=== PATIENT | female | born 1955 | race Caucasian/White ===

== ENCOUNTER 2020-02-12 12:12 | Outpatient (CLI) | payer MEDICARE, MEDICAID, SELFPAY ==
--- NOTE | 2020-02-12 12:49 | MM_ITS ---
WS: [id number] BILATERAL SCREENING DIGITAL MAMMOGRAM WITH CAD HISTORY: SCREENING MAMMOGRAM COMPARISON: 11/24/2011 Bilateral CC and MLO views submitted. Computer aided detection analyzed. Breast composition: There are scattered areas of fibroglandular density. No suspicious masses, microc alcifications or architectural distortion. Benign calcifications RIGHT breast. MM/[place] [id number] IMPRESSION: BI-RADS: 2-Benign FOLLOW UP: 1 Year Follow-up
== END 2020-02-12 12:13 | disposition home or self-care (01) ==
PROVIDERS: PCP Family Medicine; Visit Provider Family Medicine
DX: Z12.31 Encounter for screening mammogram for malignant neoplasm of breast (principal)
CPT/HCPCS: 77067

== ENCOUNTER 2020-11-06 11:43 | Outpatient (CLI) | payer MEDICARE, MEDICAID, SELFPAY ==
--- NOTE | 2020-11-06 11:51 | US_ITS ---
WS: [id number] INDICATION: Lymphadenopathy TECHNIQUE: Ultrasound right axilla area of concern. FINDINGS: Ultrasound right axilla. No cystic or solid lesions. No lymphadenopathy. No drainable fluid collections. No suspicious findings. US/US soft tissue/extremity 88304 IMPRESSION: Normal axillary ultrasound.
--- NOTE | 2020-11-06 11:51 | USCV_ITS ---
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
== END 2020-11-06 11:44 | disposition home or self-care (01) ==
LOC: RAD 11:48
PROVIDERS: PCP Family Medicine; Visit Provider Family Medicine
DX: R73.9 Hyperglycemia, unspecified (principal); I73.9 Peripheral vascular disease, unspecified; E03.9 Hypothyroidism, unspecified; G62.9 Polyneuropathy, unspecified
CPT/HCPCS: 76882; 93922

== ENCOUNTER 2020-12-17 11:40 | Outpatient (CLI) | payer MEDICARE, MEDICAID, SELFPAY ==
--- NOTE | 2020-12-17 11:57 | XR_ITS ---
WS: [id number] Right knee, 3 views, 12/17/2020 Clinical Data: HIP PAIN Comparison: None. Findings: No fractures or dislocations are seen. The medial joint compartment is narrow.The patella is unremark able. The soft tissues are unremarkable. XR/XR knee RT 3V* [id number] Impression: Minimal osteoarthritis with medial joint compartment narrowing of the right bhaveshe mini
--- NOTE | 2020-12-17 11:57 | XR_ITS ---
WS: [id number] Left knee, 3 views, 12/17/2020 Clinical Data: HIP PAIN Comparison: None. Findings: No fractures or dislocations are seen. There is medial joint compartment narrowing.. The patella is i ntact. The soft tissues are unremarkable. XR/XR knee LT 3V* [id number] Impression: Minimal medial joint compartment narrowing of the left knee.
--- NOTE | 2020-12-17 11:57 | XR_ITS ---
WS: [id number] Right hip, AP and frog-leg views, 12/17/2020 Clinical Data: HIP PAIN Comparison: None. Findings: No fractures or dislocations are seen. The hip joint is intact. The soft tissues are not remarkable. The adjacent pelvis is normal. XR/XR hip RT 2-3V wo/w pel* [id number] Impression: Negative right hip.
--- NOTE | 2020-12-17 11:57 | XR_ITS ---
WS: [id number] Lumbar spine, AP and lateral views, 12/17/2020 Clinical Data: HIP PAIN Comparison: None. Findings: No compression fractures or subluxation is seen. There is disc space narrowing at L2-L3 and L5-S1. Th ere is anterior osteoarthritic change of all the lumbar vertebral bodies. There is a gentle dextrosco liosis.. The transverse processes and SI joints are normal. There is a large amount of fecal material throughout the colon. There are calcifications in the wall of the abdominal aorta but no aneurysm. XR/XR lumbar spine 2-3V* [id number] Impression: 1. Multilevel degenerative disc narrowing. 2. Osteoarthritis of all the lumbar vertebral bodies.
--- NOTE | 2020-12-17 11:57 | XR_ITS ---
WS: [id number] Left hip, AP and frog-leg views, 12/17/2020 Clinical Data: HIP PAIN Comparison: None. Findings: No fractures or dislocations are seen. The hip joint is intact. The soft tissues are not remarkable. The adjacent pelvis is normal. XR/XR hip LT 2-3V wo/w pel* [id number] Impression: Negative left hip.
== END 2020-12-17 11:41 | disposition home or self-care (01) ==
PROVIDERS: PCP Family Medicine; Visit Provider Family Medicine
DX: M25.551 Pain in right hip (principal); M25.552 Pain in left hip; M47.816 Spondylosis without myelopathy or radiculopathy, lumbar region
CPT/HCPCS: 72100; 73502; 73562

== ENCOUNTER 2021-02-12 07:09 | Outpatient (CLI) | payer MEDICARE, MEDICAID, SELFPAY ==
--- NOTE | 2021-02-12 07:18 | MM_ITS ---
WS: [id number] BILATERAL DIGITAL SCREENING MAMMOGRAPHY WITH CAD CLINICAL INFORMATION: SCREENING HISTORY: Screening mammogram. No current complaints. COMPARISON: February 12, 2020 TECHNIQUE: Bilateral CC and MLO views. FINDINGS: Mild inversion left nipple Scattered fibroglandular densities bilaterally. No suspicious focal mass, asymmetry, calcifications, or architectural distortion. No evidence of malignancy. Punctate and lucent centered calcifications. MM/[place] [id number] IMPRESSION: BI-RADS: 2-Benign FOLLOW UP: 1 Year Follow-up Recommend return to annual screening mammography.
== END 2021-02-12 07:10 | disposition home or self-care (01) ==
LOC: RADSHAW 07:13
PROVIDERS: PCP Family Medicine; Visit Provider Family Medicine
DX: Z12.31 Encounter for screening mammogram for malignant neoplasm of breast (principal)
CPT/HCPCS: 77067

== ENCOUNTER 2021-02-25 10:37 | Emergency (ER) | payer MEDICARE, MEDICAID, SELFPAY ==
[2021-02-25] VITALS (11 sets, daily range): BP systolic 103–139; BP diastolic 48–72; PULSE 96–107; RESP 17–27; O2SAT 86–97; BMI 33.4
--- NOTE | 2021-02-25 11:11 | XR_ITS ---
WS: [id number] Portable AP upright chest, 02/25/2021 Clinical Data: AMS, cough Comparison: PA and lateral chest, 04/04/2013. Findings: No nodules, masses or effusions are seen. The heart is normal. The pulmonary vascularity is not increased. No pneumonia or pneumothorax is seen. There is a small recording device over the mid chest. XR/XR chest 1V portable [id number] Impression: Negative chest.
--- NOTE | 2021-02-25 11:11 | CT_ITS ---
WS: [id number] CT HEAD TECHNIQUE: Noncontrast CT of the head obtained from the skullbase to the vertex. CLINICAL INFORMATION: fall, AMS COMPARISON: None. DLP: 858.[address] scans at [facility] use at least one of these dose optimization techniques: automat ed exposure control; mA and/or kV adjustment per patient size (includes targeted exams where dose is matched to clinical indication); or iterative reconstruction. FINDINGS: No evidence of intracranial hemorrhage or mass effect. Ventricular system and basal cisterns are pretty nt. Mild small vessel changes with mild parenchymal volume loss. Chronic lacunar infarct left lateral basal ganglia. No extra-axial fluid collections. No evidence of mass or mass effect. Normal johnson-whi te differentiation. Mild mucosal thickening in the posterior ethmoid air cells and sphenoid sinuses. Mastoid air cells we ll aerated. CT/CT head wo con* [id number] IMPRESSION: 1. No evidence of intracranial hemorrhage or mass effect. 2. Mild small vessel changes. Mild parenchymal volume loss. 3. Mild mucosal thickening in the paranasal sinuses. 4. No acute intracranial findings.
[2021-02-25 11:21] LABS: Basophils % 0.5 %; Eosinophils % 0.1 %; Hematocrit 39.6 % (37.0-47.0); Hemoglobin 12.6 g/dL (11.5-15.3); Lymphocytes % 35.4 %; Mean Corpuscular HGB Conc 31.8 g/dL (30.0-36.0); Mean Corpuscular Hemoglobin 29.7 pg (28.0-34.0); Mean Corpuscular Volume 93.4 fL (81-99); Mean Platelet Volume 11.9 fL (7.4-10.4); Monocytes % 12.1 %; Neutrophils # 4.33 10^3/uL (1.8-7.7); Neutrophils % 51.5 %; Nucleated Red Blood Cells % 0 %; Platelet Count 243 10^3/cmm (130-400); Red Blood Count 4.24 10^6/uL (4.1-5.3); Red Cell Distribution Width 14.6 % (12.1-15.1); White Blood Count 8.4 10^3/uL (4.0-10.0)
--- NOTE | 2021-02-25 11:38 | ED_ITS ---
HPI - Altered Mental Status General: Chief Complaint: Altered Mental Status Stated Complaint: confusion/ fever/ persistent cough Time Seen by Provider: 02/25/21 11:01 Source: patient and RN notes reviewed Mode of arrival: EMS Limitations: altered mental status History of Present Illness: HPI narrative: Patient is a 65-year-old female who was brought into the emergency department by EMS because her daughter and hospice/home health aide felt the patient was not acting like herself. As the patient is giving me history it is obvious that some parts of her history are not connecting and it is difficult to make complete sense. She however is able to tell me her aide told her she was coming to the hospital and she says she does not know why. Patient does admit to having a fall 2 days ago and has an abrasion to her nose. Patient cannot recall how or why she fell. She does endorse a cough but denies a fever. On arrival to her place of residence her oxygen saturation was about 88 to 89% on room air and she was placed on 6 L/min of oxygen. She was also given a beta agonist breathing treatment en route. MD complaint: altered mental status and confusion Onset (ago): hour(s) Timing confirmed by: family member Severity: moderate Consistency of symptoms: Unknown Associated symptoms: Deny auditory hallucinations, visual hallucinations, delusions, depression, homicidal ideation, racing thoughts or suicidal ideation Review of Systems General: Reports: 10 or more systems reviewed and unremarkable except in HPI and below Psych: Denies: depression, visual hallucinations, auditory hallucinations, suicidal ideation or homicidal ideation [facility] ED PFSH: Social History Smoking and tobacco status: current every day smoker Alcohol intake: never Physical Exam Const: COMMON NORMALS: no acute distress, average body habitus, patient oriented x3, no limitations, healthy appearing, alert and well nourished HENMT: COMMON NORMALS: normocephalic, atraumatic and moist oral mucous membranes HEAD & SCALP: normocephalic, atraumatic and abrasion (To the bridge of her nose) Neck/C-Spine: COMMON NORMALS: no meningeal signs and no JVD Resp: COMMON NORMALS: normal respiratory effort, No retractions, No use of accessory muscles, clear to auscultation bilaterally and percussion normal AUSCULTATION: clear to auscultation bilaterally PERCUSSION: percussion normal Cardio: COMMON NORMALS: no JVD, regular rate, regular rhythm, S1 normal heart sound present, S2 normal heart sound present, No gallops present (Cardio), No clicks present (Cardio), No murmurs present (Cardio), No rub (Cardio) and Peripheral pulses 2+ throughout RATE: regular rate RHYTHM: regular rhythm HEART SOUNDS: S1 normal heart sound present and S2 normal heart sound present PERIPHERAL PULSES: Peripheral pulses 2+ throughout GI: COMMON NORMALS: Normal to inspection, nondistended, normoactive bowel sounds present, Soft to palpation, non-tender, No hepatosplenomegaly present, no masses and no bruits PALPATION: Yes Soft to palpation and Yes No hepatosplenomegaly present Extremity: COMMON NORMALS: normal to inspection, full ROM, capillary refill normal, no calf tenderness and no pedal edema Neuro: COMMON NORMALS: patient oriented x3 SENSORIUM/ORIENTATION: Yes alert MENINGEAL SIGNS: Yes no meningeal signs OTHER: She is able to answer all my questions regarding orientation appropriately but there appeared to be some gaps in her history that she is unable to fill Psych: THOUGHT CONTENT: No delusions Skin: COMMON NORMALS: no rashes or lesions noted, no wounds, turgor normal, no jaundice, no petechiae and no mottling GENERAL SKIN EXAM: no rashes or lesions noted and turgor normal Course Reevaluation(s): Reevaluation #1: Discussed her lab and imaging findings with the patient and her daughter. Explained that her work-up was essentially unremarkable other than she is noted to be hypoxic. She qualified for home oxygen and she is discharged home on home oxygen. Patient and her daughter voiced understanding and they are in agreement with the plan. Time: 17:25 Vital Signs: Vital signs: Vital Signs Pulse Rate 98 02/25/21 17:49 Respiratory Rate 22 H 02/25/21 17:03 Blood Pressure 105/48 02/25/21 13:00 Pulse Oximetry 92 02/25/21 17:49 MDM - Altered Mental Status MDM Narrative: Medical decision making narrative: 65-year-old female patient presents to the emergency department with altered mental status. Evaluation in the emergency department is unremarkable other than she was pretty hypoxic on ambulation. Work-up done including a CTA of her chest were negative. Her mental status improved with oxygen and she is discharged home with home oxygen. Medical Records: Attestation: I reviewed the patient's medical records. Lab Data: Attestation: I reviewed the patient's lab results. Labs: Lab Results 02/25/21 02/25/21 02/25/21 Range/Units 10:29 10:29 10:29 WBC 8.4 (4.0-10.0) 10^3/ uL RBC 4.24 (4.1-5.3) 10^6/u L Hgb 12.6 (11.5-15.3) g/dL Hct 39.6 (37.0-47.0) % MCV 93.4 (81-99) fL MCH 29.7 (28.0-34.0) pg MCHC 31.8 (30.0-36.0) g/dL RDW 14.6 (12.1-15.1) % Plt Count 243 (130-400) 10^3/c mm MPV 11.9 H (7.4-10.4) fL Neut % (Auto) 51.5 % Lymph % (Auto) 35.4 % [place] % (Auto) 12.1 % Eos % (Auto) 0.1 % Baso % (Auto) 0.5 % Neut # (Auto) 4.33 (1.8-7.7) 10^3/u L Lymph # (Auto) 3.0 (0.8-4.8) 10^3/u L [place] # (Auto) 1.0 H (0.2-0.9) 10^3/u L Eos # (Auto) 0.0 (0.0-0.8) 10^3/u L Baso # (Auto) 0.0 (0.0-0.1) 10^3/u L Nucleated RBC % (a uto) 0 % Nucleated RBCs # 0.0 /100WBC Specimen Type Sample Site ABG pH (7.35-7.45) ABG pCO2 (35-45) mmHg ABG pO2 (80.0-100.0) mmH g ABG HCO3 (22-26) mmol/L ABG Base Excess (-2.0-2.0) mmol/ L Abhi Test Hematocrit (37-47) % O2 Delivery Device O2 Liters/Min % FiO2 % Protein Scientist ID Sodium 136 (136-145) mmol/L Potassium 4.6 (3.5-5.1) mmol/L Chloride 96 L (98-107) mmol/L Carbon Dioxide 28 (22-29) mmol/L Anion Gap 16.6 (5-19) BUN 16 (8-23) mg/dL Creatinine 0.8 (0.5-0.9) mg/dL GFR Calculation 71.5 L (90-130) mL/min Glucose 125 H (65-115) mg/dL Calculated Osmolal ity 285 (285-295) mOsm/k g Lactate (0.5-2.2) mmol/L Calcium 8.3 L (8.5-10.5) mg/dL Total Bilirubin 0.3 (0.15-1.2) mg/dL AST 27 (0-32) U/L ALT 25 (0-33) U/L Alkaline Phosphata se 75 (35-105) IU/L Creatine Kinase 229 H (26-192) U/L Troponin T Baselin e 49 H (0-10) ng/L Troponin T 120 Min [place] (0-10) ng/L Delta Troponin T (0-10) ABS# C-Reactive Protein 110.6 H (0.0-4.9) mg/L Total Protein 6.7 (6.6-8.7) g/dL Albumin 3.7 (3.5-5.2) g/dL Globulin 3.0 (1.3-4.6) g/dL Procalcitonin 0.09 (0-0.5) ng/mL Urine Color (Yellow) Urine Appearance (CLEAR) Urine pH (5-7) Ur Specific Gravit y (1.005-1.030) Urine Protein (Negative) Urine Glucose (UA) (Normal) Urine Ketones (Negative) Urine Blood (Negative) Urine Nitrate (Negative) Urine Bilirubin (Negative) Urine Urobilinogen (Negative) mg/dL Ur Leukocyte Graciela ase (Negative) Urine RBC (0-2) /hpf Urine WBC (0-5) /hpf Ur Squamous Epith Cells (0-5) /hpf Amorphous Sediment Urine Bacteria (NONE) /hpf Urine Mucus /hpf SARS-CoV-2 Ag (Rap id) (Negative) 02/25/21 02/25/21 02/25/21 Range/Units 11:35 11:35 11:43 WBC (4.0-10.0) 10^3/ uL RBC (4.1-5.3) 10^6/u L Hgb (11.5-15.3) g/dL Hct (37.0-47.0) % MCV (81-99) fL MCH (28.0-34.0) pg MCHC (30.0-36.0) g/dL RDW (12.1-15.1) % Plt Count (130-400) 10^3/c mm MPV (7.4-10.4) fL Neut % (Auto) % Lymph % (Auto) % [place] % (Auto) % Eos % (Auto) % Baso % (Auto) % Neut # (Auto) (1.8-7.7) 10^3/u L Lymph # (Auto) (0.8-4.8) 10^3/u L [place] # (Auto) (0.2-0.9) 10^3/u L Eos # (Auto) (0.0-0.8) 10^3/u L Baso # (Auto) (0.0-0.1) 10^3/u L Nucleated RBC % (a uto) % Nucleated RBCs # /100WBC Specimen Type Arterial Sample Site Radial, left ABG pH 7.41 (7.35-7.45) ABG pCO2 47.8 H (35-45) mmHg ABG pO2 64.5 L (80.0-100.0) mmH g ABG HCO3 30.3 H (22-26) mmol/L ABG Base Excess 4.8 H (-2.0-2.0) mmol/ L Abhi Test Pos Hematocrit 38.1 (37-47) % O2 Delivery Device Nc O2 Liters/Min 2.0 % FiO2 28.0 % Protein Scientist ID Cak Sodium (136-145) mmol/L Potassium (3.5-5.1) mmol/L Chloride (98-107) mmol/L Carbon Dioxide (22-29) mmol/L Anion Gap (5-19) BUN (8-23) mg/dL Creatinine (0.5-0.9) mg/dL GFR Calculation (90-130) mL/min Glucose (65-115) mg/dL Calculated Osmolal ity (285-295) mOsm/k g Lactate 1.1 (0.5-2.2) mmol/L Calcium (8.5-10.5) mg/dL Total Bilirubin (0.15-1.2) mg/dL AST (0-32) U/L ALT (0-33) U/L Alkaline Phosphata se (35-105) IU/L Creatine Kinase (26-192) U/L Troponin T Baselin e (0-10) ng/L Troponin T 120 Min [place] (0-10) ng/L Delta Troponin T (0-10) ABS# C-Reactive Protein (0.0-4.9) mg/L Total Protein (6.6-8.7) g/dL Albumin (3.5-5.2) g/dL Globulin (1.3-4.6) g/dL Procalcitonin (0-0.5) ng/mL Urine Color (Yellow) Urine Appearance (CLEAR) Urine pH (5-7) Ur Specific Gravit y (1.005-1.030) Urine Protein (Negative) Urine Glucose (UA) (Normal) Urine Ketones (Negative) Urine Blood (Negative) Urine Nitrate (Negative) Urine Bilirubin (Negative) Urine Urobilinogen (Negative) mg/dL Ur Leukocyte Graciela ase (Negative) Urine RBC (0-2) /hpf Urine WBC (0-5) /hpf Ur Squamous Epith Cells (0-5) /hpf Amorphous Sediment Urine Bacteria (NONE) /hpf Urine Mucus /hpf SARS-CoV-2 Ag (Rap id) Negative (Negative) 02/25/21 02/25/21 Range/Units 13:51 14:05 WBC (4.0-10.0) 10^3/ uL RBC (4.1-5.3) 10^6/u L Hgb (11.5-15.3) g/dL Hct (37.0-47.0) % MCV (81-99) fL MCH (28.0-34.0) pg MCHC (30.0-36.0) g/dL RDW (12.1-15.1) % Plt Count (130-400) 10^3/c mm MPV (7.4-10.4) fL Neut % (Auto) % Lymph % (Auto) % [place] % (Auto) % Eos % (Auto) % Baso % (Auto) % Neut # (Auto) (1.8-7.7) 10^3/u L Lymph # (Auto) (0.8-4.8) 10^3/u L [place] # (Auto) (0.2-0.9) 10^3/u L Eos # (Auto) (0.0-0.8) 10^3/u L Baso # (Auto) (0.0-0.1) 10^3/u L Nucleated RBC % (a uto) % Nucleated RBCs # /100WBC Specimen Type Sample Site ABG pH (7.35-7.45) ABG pCO2 (35-45) mmHg ABG pO2 (80.0-100.0) mmH g ABG HCO3 (22-26) mmol/L ABG Base Excess (-2.0-2.0) mmol/ L Abhi Test Hematocrit (37-47) % O2 Delivery Device O2 Liters/Min % FiO2 % Protein Scientist ID Sodium (136-145) mmol/L Potassium (3.5-5.1) mmol/L Chloride (98-107) mmol/L Carbon Dioxide (22-29) mmol/L Anion Gap (5-19) BUN (8-23) mg/dL Creatinine (0.5-0.9) mg/dL GFR Calculation (90-130) mL/min Glucose (65-115) mg/dL Calculated Osmolal ity (285-295) mOsm/k g Lactate (0.5-2.2) mmol/L Calcium (8.5-10.5) mg/dL Total Bilirubin (0.15-1.2) mg/dL AST (0-32) U/L ALT (0-33) U/L Alkaline Phosphata se (35-105) IU/L Creatine Kinase (26-192) U/L Troponin T Baselin e (0-10) ng/L Troponin T 120 Min [place] 36.20 H (0-10) ng/L Delta Troponin T -12.80 L (0-10) ABS# C-Reactive Protein (0.0-4.9) mg/L Total Protein (6.6-8.7) g/dL Albumin (3.5-5.2) g/dL Globulin (1.3-4.6) g/dL Procalcitonin (0-0.5) ng/mL Urine Color Dark yellow (Yellow) Urine Appearance Clear (CLEAR) Urine pH 5 (5-7) Ur Specific Gravit y 1.020 (1.005-1.030) Urine Protein Trace (Negative) Urine Glucose (UA) Norm (Normal) Urine Ketones Negative (Negative) Urine Blood Neg (Negative) Urine Nitrate Negative (Negative) Urine Bilirubin 1+ H (Negative) Urine Urobilinogen 4 H (Negative) mg/dL Ur Leukocyte Graciela ase Negative (Negative) Urine RBC None (0-2) /hpf Urine WBC 5-10 H (0-5) /hpf Ur Squamous Epith Cells 15-25 H (0-5) /hpf Amorphous Sediment Not Reportable Urine Bacteria 1+ H (NONE) /hpf Urine Mucus 2+ /hpf SARS-CoV-2 Ag (Rap id) (Negative) Imaging Data^: CTA Chest: Attestation: I personally reviewed and interpreted this imaging study as follows: Radiologist's impression: [employer] [id number] Scan ReportSigned Patient: Sandra Ramírez AUnit #: [id number]: 1955cct#:[id number]/Sex: 65 / FADM Date: 02/25/21Loc: ERRoom /Bed:Attending Dr: Ordering Provider/Ordering MD: Johnson Gabriel MD, [facility] [place] Date of Service: 02/25/21 Procedure(s): CT angio chest PE prot [id number] Accession Number(s): [id number] Report Number: [id number] PROCEDURE INFORMATION: Exam: CTA Chest With Contrast Exam date and time: 02/25/2021 4:09 PM Age: 65 years old Clinical indication: Shortness of breath; Additional info: Hypoxia TECHNIQUE: Imaging protocol: Computed tomographic angiography of the chest with contrast. 3D rendering (Not supervised by radiologist): MIP and/or 3D reconstructed images were created by the technologist. Radiation optimization: All CT scans at this facility use at least one of these dose optimization techniques: automated exposure control; mA and/or kV adjustment per patient size (includes targeted exams where dose is matched to clinical indication); or iterative reconstruction. Contrast material: OMNI 350; Contrast volume: 75 ml; Contrast route: INTRAVENOUS (IV); COMPARISON: CR XR chest 1V portable [id number] 02/25/2021 11:34 AM RADIATION DOSE METRICS: Total DLP (mGy-cm): 577.99 FINDINGS: Pulmonary arteries: Normal. No pulmonary emboli. Aorta: Unremarkable. No aortic aneurysm. No aortic dissection. Lungs: Mild atelectasis in the lung bases. Pleural spaces: Unremarkable. No pneumothorax. No pleural effusion. Heart: Coronary artery calcifications. Lymph nodes: Prominent mediastinal and hilar lymph nodes are most likely reactive. Bones/joints: Mild thoracic curvature. No fracture. Soft tissues: Unremarkable. CT/CT angio chest PE protcl [id number] IMPRESSION: 1. No evidence for pulmonary embolus or other acute abnormality. Radiation Dose CTDIVOL = (mGy): DLP = 577.99 (mGy-cm) Dictated By:Carmen Sung By:Carmen Sung Date/Time:02/25/211704DD/ 03 CXR: Attestation: I personally reviewed and interpreted this imaging study as follows: Radiologist's impression: [address] [id number] ReportSigned Patient: Sandra Ramírez AUnit #: [id number]: [id number]#:[id number]/Sex: 65 / FADM Date: 02/25/21Loc: ERR oom/Bed:Attending Dr: Ordering Provider/Ordering MD: Johnson Gabriel MD, [facility] [place] Date of Service: 02/25/21 Procedure(s): XR chest 1V portable [id number] Accession Number(s): [id number] Report Number: [id number] WS: [id number] Portable AP upright chest, 02/25/2021 Clinical Data: AMS, cough Comparison: PA and lateral chest, 04/04/2013. Findings: No nodules, masses or effusions are seen. The heart is normal. The pulmonary vascularity is not increased. No pneumonia or pneumothorax is seen. There is a small recording device over the mid chest. XR/XR chest 1V portable [id number] Impression: Negative chest. Dictated By:Lorenza Schuster MDSigned By:Lorenza Schuster MDSigned Date/Time:02/25/21 1148DD/ 1147 CT Head: Attestation: I personally reviewed and interpreted this imaging study as follows: Radiologist's impression: [address], [place] [address]IP Scan ReportSigned Patient: Sandra Ramírez AUnit #: [id number]: [id number]#:[id number]/Sex: 65 / FADM Date: 02/25/21Loc: ERRoom/Bed:Attending Dr: Ordering Provider/Ordering MD: Johnson Gabriel MD, [facility] [place] Date of Service: 02/25/21 Procedure(s): CT head wo con* [id number] Accession Number(s): [id number] Report Number: [id number] WS: [id number] CT HEAD TECHNIQUE: Noncontrast CT of the head obtained from the skullbase to the vertex. CLINICAL INFORMATION: fall, AMS COMPARISON: None. DLP: 858.[address] scans at [facility] use at least one of these dose optimization techniques: automated exposure control; mA and/or kV adjustment per patient size (includes targeted exams where dose is matched to clinical indication); or iterative reconstruction. FINDINGS: No evidence of intracranial hemorrhage or mass effect. Ventricular system and basal cisterns are patent. Mild small vessel changes with mild parenchymal volume loss. Chronic lacunar infarct left lateral basal ganglia. No extra-axial fluid collections. No evidence of mass or mass effect. Normal johnson-white differentiation. Mild mucosal thickening in the posterior ethmoid air cells and sphenoid sinuses. Mastoid air cells well aerated. CT/CT head wo con* [id number] IMPRESSION: 1. No evidence of intracranial hemorrhage or mass effect. 2. Mild small vessel changes. Mild parenchymal volume loss. 3. Mild mucosal thickening in the paranasal sinuses. 4. No acute intracranial findings. Dictated By:Mj Evans MDSigned By:Mj Evans MDSigned Date/Time:02/25/21 1233DD/ 1230 EKG Data^: EKG 1: Attestation: I personally reviewed and interpreted this EKG as follows: EKG interpretation date: 02/25/21 EKG interpretation time: 13:10 Prior EKG tracings: not available for review Interpretation: Sinus tachycardia. Heart rate 105 bpm. Left atrial enlargement. Right ventricular conduction delay. No ST changes. EKG 2: Attestation: I personally reviewed and interpreted this EKG as follows: EKG interpretation date: 02/25/21 EKG interpretation time: 14:04 Prior EKG tracings: available for review Interpretation: Sinus tachycardia. Heart rate 105 bpm. Left atrial enlargement. Right ventricular conduction delay. No ST changes. No significant changes from earlier. Discharge Plan Discharge Patient Disposition: Home Clinical Impression: Hypoxia, Bronchitis Condition: Stable Prescriptions: New prednisone 20 mg tablet 40 mg PO DAILY Qty: 10 RF: 0 azithromycin 250 mg tablet See Rx Instructions .ROUTE .COMPLEX Qty: 6 RF: 0 albuterol sulfate 90 mcg/actuation HFA aerosol inhaler 4 inh inhalation Q4H PRN (Reason: shortness of breath or wheezing) Qty: 8.5 RF: 0 Continued alprazolam [Xanax] 0.25 mg tablet 0.25 mg PO TID PRN (Reason: Anxiety) RF: 0 levothyroxine [Synthroid] 25 mcg tablet 25 mcg PO DAILY RF: 0 Imitrex 100 mg Tablet 100 mg PO PRN RF: 0 meloxicam 15 mg tablet 15 mg PO DAILY RF: 0 acetaminophen-codeine 300-30 mg tablet 1 tab PO BID PRN (Reason: Pain) RF: 0 Tylenol Extra Strength 500 mg Tablet 500 - 1,000 mg PO PRN RF: 0 simvastatin 20 mg tablet 20 mg PO DAILY RF: 0 gabapentin 300 mg capsule See Rx Instructions .ROUTE .COMPLEX RF: 0 omeprazole 20 mg capsule,delayed release(DR/EC) 20 mg PO BID RF: 0 amitriptyline 100 mg tablet 100 mg PO BEDTIME RF: 0 buspirone 15 mg tablet 15 mg PO BID RF: 0 turmeric 1 cap PO DAILY RF: 0 Discharge Orders: Discharge ED (Routine); Ordered 02/25/21 Ordered By: Johnson Gabriel Other Ambulatory Orders: DME: Oxygen (Order) Location: None Selected Ordered By: Johnson Gabriel Referrals: Eugene Bo MD [Primary Care Provider] - 1-3 days Discharge Diet: Usual diet Discharge Activity: Increase activity as tolerated Patient Instructions: Confusion, Acute Bronchitis (ED), Hypoxia (ED) Activity Restrictions/Additional Instructions: Return for any new or worsening symptoms. Follow-up with your primary care provider within 3 days. You will need to get tested to see if you have COPD. I believe your confusion was due to low oxygen so I want you to use oxygen all the time at 2 L/min. Use the antibiotic and steroid as prescribed, use the inhaler every 4 hours for the next 2 days and then as needed thereafter. Coding Level of Care Code ED [employer] Scm Consultant for Chg Fwd Exam Comprehensive
--- NOTE | 2021-02-25 11:41 | ECG_ITS ---
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 Measurements Intervals [place] Rate: 105 P: 71 NV: 150 QRS: 79 QRSD: 88 T: 72 QT: 353 QTc: 468 Interpretive Statements SINUS TACHYCARDIA POSSIBLE LEFT ATRIAL ENLARGEMENT [-0.1mV P WAVE IN V1/V2] POSSIBLE RIGHT VENTRICULAR CONDUCTION DELAY [RSR (QR) IN V1/V2] ABNORMAL RHYTHM ECG No previous ECG available for comparison Electronically Signed On 02-26-2021 14:52:48 CDT by Jonathan Huynh M.D. [email or web address], [id number]
[2021-02-25 11:46] LABS: Procalcitonin 0.09 ng/mL (0-0.5)
[2021-02-25 11:54] LABS: ABG PCO2 47.8 mmHg (35-45); ABG PH Result 7.41 (7.35-7.45); Arterial Blood Gas Hematocrit 38.1 % (37-47); Base Excess ABG 4.8 mmol/L (-2.0-2.0); Blood Gas Allen Test Pos; Blood Gas Operator Identificat CAK; Blood Gas Sample Site Radial, left; Blood Gas Sample Type Arterial; HCO3 ABG 30.3 mmol/L (22-26); Oxygen Device NC; PO2 ABG 64.5 mmHg (80.0-100.0)
[2021-02-25 12:04] LABS: Alanine Aminotransferase 25 U/L (0-33); Albumin Level 3.7 g/dL (3.5-5.2); Alkaline Phosphatase 75 IU/L (35-105); Anion Gap 16.6 (5-19); Aspartate Amino Transferase 27 U/L (0-32); Blood Urea Nitrogen 16 mg/dL (8-23); C Reactive Protein 110.6 mg/L (0.0-4.9); Calcium 8.3 mg/dL (8.5-10.5); Carbon Dioxide 28 mmol/L (22-29); Chloride 96 mmol/L (98-107); Creatine Phosphokinase 229 U/L (26-192); Creatinine Clr Calc Pharmacy 78.1819; Glomerular Filtration Rate 71.5 mL/min (90-130); Glucose 125 mg/dL (65-115); Osmolality Calculated 285 mOsm/kg (285-295); Potassium 4.6 mmol/L (3.5-5.1); Sodium 136 mmol/L (136-145); Total Bilirubin 0.3 mg/dL (0.15-1.2); Total Protein 6.7 g/dL (6.6-8.7)
[2021-02-25 12:10] LABS: Lactate (Lactic Acid level) 1.1 mmol/L (0.5-2.2)
[2021-02-25 12:11] LABS: Troponin(5th) Baseline 49 ng/L (0-10)
[2021-02-25 12:28] LABS: SARS Covid-2 Antigen Negative (Negative)
--- NOTE | 2021-02-25 13:41 | ECG_ITS ---
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 Measurements Intervals [place] Rate: 105 P: 71 ME: 160 QRS: 81 QRSD: 90 T: 68 QT: 349 QTc: 462 Interpretive Statements SINUS TACHYCARDIA POSSIBLE LEFT ATRIAL ENLARGEMENT [-0.1mV P WAVE IN V1/V2] POSSIBLE RIGHT VENTRICULAR CONDUCTION DELAY [RSR (QR) IN V1/V2] ABNORMAL RHYTHM ECG Compared to ECG 02/25/2021 13:09:51 No significant changes Electronically Signed On 02-26-2021 14:59:25 CDT by Jonathan Huynh M.D. [id number]
[2021-02-25 14:23] LABS: Add Urine Microscopic? YES; Bacteria Urine 1+ /hpf; Bilirubin Urine 1+ (Negative); Blood Urine Neg (Negative); Glucose Urine UA Norm (Normal); Ketones Urine Negative (Negative); Leukocyte Esterase Urine Negative (Negative); Mucus Urine 2+ /hpf; Nitrate Urine Negative (Negative); Protein Urine Trace (Negative); Squamous Epithelial Cell Urine 15-25 /hpf (0-5); Urine Appearance Clear (CLEAR); Urine Color Dark Yellow (Yellow); Urobilinogen Urine 4 mg/dL (Negative); pH Urine 5 (5-7)
[2021-02-25 14:24] LABS: Add Urine Culture? No
--- NOTE | 2021-02-25 15:53 | DCPLANNER ---
senior marketing manager was asked to arrange home O2 for patient. senior marketing manager spoke with patient, she chose to use [facility]. senior marketing manager faxed order to [facility] for patients oxygen needs. senior marketing manager signed the Patient Choice Letter for patient stating that HOME was patients choice for home oxygen needs.
--- NOTE | 2021-02-25 16:02 | PC.NURSE ---
pt was up to bathroom when her O2 level dropped to 80% nurse notified physician of this finding @ 1500
--- NOTE | 2021-02-25 16:09 | CTR_ITS ---
PROCEDURE INFORMATION: Exam: CTA Chest With Contrast Exam date and time: 02/25/2021 4:09 PM Age: 65 years old Clinical indication: Shortness of breath; Additional info: Hypoxia TECHNIQUE: Imaging protocol: Computed tomographic angiography of the chest with contrast. 3D rendering (Not supervised by radiologist): MIP and/or 3D reconstructed images were created by the technologist. Radiation optimization: All CT scans at this facility use at least one of these dose optimization techniques: automated exposure control; mA and/or kV adjustment per patient size (includes targeted exams where dose is matched to clinical indication); or iterative reconstruction. Contrast material: OMNI 350; Contrast volume: 75 ml; Contrast route: INTRAVENOUS (IV); COMPARISON: CR XR chest 1V portable [id number] 02/25/2021 11:34 AM RADIATION DOSE METRICS: Total DLP (mGy-cm): 577.99 FINDINGS: Pulmonary arteries: Normal. No pulmonary emboli. Aorta: Unremarkable. No aortic aneurysm. No aortic dissection. Lungs: Mild atelectasis in the lung bases. Pleural spaces: Unremarkable. No pneumothorax. No pleural effusion. Heart: Coronary artery calcifications. Lymph nodes: Prominent mediastinal and hilar lymph nodes are most likely reactive. Bones/joints: Mild thoracic curvature. No fracture. Soft tissues: Unremarkable. CT/CT angio chest PE protcl [id number] IMPRESSION: 1. No evidence for pulmonary embolus or other acute abnormality. Radiation Dose CTDIVOL = (mGy): DLP = 577.99 (mGy-cm)
[2021-02-25] MEDS: iohexol 350 mg/mL 100 mL Btl IV (16:35)
[2021-02-25] MEDS: ipratropium-albuterol 3 mL Neb INHALATION (16:54)
== END 2021-02-25 17:50 | disposition home or self-care (01) ==
PROVIDERS: Emergency Provider Family Medicine; PCP Family Medicine
DX: J40 Bronchitis, not specified as acute or chronic (principal); R09.02 Hypoxemia; F17.200 Nicotine dependence, unspecified, uncomplicated
CPT/HCPCS: 36600; 70450; 71045; 71275; 80053; 81001; 82550; 82803; 83605; 84145; 84484; 85025; 86140; 87426; 93005; 94640; 99284; Q9967

== ENCOUNTER 2021-02-26 15:05 | Outpatient (CLI) | payer MEDICARE, MEDICAID, SELFPAY ==
--- NOTE | 2021-02-26 15:16 | MR_ITS ---
WS: [id number] MRI LUMBAR SPINE NONCONTRAST TECHNIQUE: Sagittal T1, T2 and STIR imaging. Axial T1 and T2 imaging. CLINICAL INFORMATION: M48.061 - Spinal stenosis, lumbar region without neurogen... COMPARISON: None. FINDINGS: Mild lumbar curve. No acute compression. Disc space narrowing worse at L2-3 and L5-S1 with fatty sonja ow endplate degenerative changes. L1-L2: Normal. L2-L3: Mild disc bulging with slight effacement of ventral thecal sac. Slight narrowing of the subart icular recess bilaterally. Mild right foraminal narrowing. Left foramen is patent. Mild facet arthrop athy. L3-L4: Mild disc bulging with osteophytic ridging. Mild central canal stenosis. Impingement on the horner barticular recess bilaterally. Mild bilateral foraminal narrowing. Mild facet arthropathy. L4-L5: Mild disc bulging with moderate to severe central canal stenosis. Moderate facet arthropathy w ith ligamentum flavum hypertrophy. Impingement traversing L5 nerve roots bilaterally. Left foraminal protrusion with severe left foraminal narrowing and impingement on the exiting left L4 nerve root. Mi ld right foraminal narrowing. Moderate facet arthropathy. L5-S1: Tiny central disc protrusion. Impingement on the traversing left greater than right S1 nerve r oots in the subarticular recess. Mild central canal stenosis. Moderate facet arthropathy. Moderate ri ght and mild left foraminal narrowing. L5 is partially sacralized. Visualized pelvic bony structures: Normal. Paravertebral soft tissues: Normal. MR/MR lumbar spine wo con* [id number] IMPRESSION: 1. Mild lumbar curve. No acute compression. Disc space narrowing worse at L2-L 3 and L5-S1. 2. Moderate to severe central canal stenosis L4-5 with impingement on the libby ersing L5 nerve roots bilaterally. Moderate facet arthropathy ligamentum flavum hypertrophy. 3. Left foraminal protrusion L4-5 with severe left foraminal narrowing and imp ingement on the exiting left L4 nerve root. 4. Mild central canal stenosis L2-3 with impingement on the traversing right L 3 nerve root. Mild right L2-3 foraminal narrowing. 5. Mild central canal stenosis L3-4 with impingement on traversing L4 nerve ro ots bilaterally. 6. Shallow central disc protrusion L5-S1 impinges the traversing left greater than right S1 nerve roots. Moderate right and mild left foraminal narrowing at this level.
== END 2021-02-26 15:06 | disposition home or self-care (01) ==
LOC: RADWPI 15:14
PROVIDERS: PCP Family Medicine; Visit Provider Orthopaedic Surgery
DX: M48.061 Spinal stenosis, lumbar region without neurogenic claudication (principal); M51.27 Other intervertebral disc displacement, lumbosacral region
CPT/HCPCS: 72110; 72148

== ENCOUNTER → 2021-03-19 08:35 | Outpatient (BNVA) | payer MEDICARE, MEDICAID, SELFPAY | PROVIDERS: PCP Family Medicine; Referring Provider Orthopaedic Surgery; Visit Provider Anesthesiology Pain Medicine | DX: M48.062 Spinal stenosis, lumbar region with neurogenic claudication (principal); M51.36 Other intervertebral disc degeneration, lumbar region; M54.16 Radiculopathy, lumbar region; M47.816 Spondylosis without myelopathy or radiculopathy, lumbar region; M79.605 Pain in left leg; Z79.891 Long term (current) use of opiate analgesic | CPT/HCPCS: 99205 ==

== ENCOUNTER → 2021-03-22 14:13 | Outpatient (BNVA) | payer MEDICARE, MEDICAID, SELFPAY | PROVIDERS: PCP Family Medicine; Visit Provider Anesthesiology Pain Medicine | DX: M54.16 Radiculopathy, lumbar region (principal); M48.062 Spinal stenosis, lumbar region with neurogenic claudication; F17.210 Nicotine dependence, cigarettes, uncomplicated | CPT/HCPCS: 64483; 64484; J1100; J3490 ==

== ENCOUNTER → 2021-04-05 13:02 | Outpatient (BNVA) | payer MEDICARE, MEDICAID, SELFPAY | PROVIDERS: PCP Family Medicine; Visit Provider Anesthesiology Pain Medicine | DX: M54.16 Radiculopathy, lumbar region (principal); M48.062 Spinal stenosis, lumbar region with neurogenic claudication; Z87.891 Personal history of nicotine dependence | CPT/HCPCS: 64483; 64484; J1100; J3490 ==

== ENCOUNTER → 2021-04-20 09:15 | Outpatient (BNVA) | payer MEDICARE, MEDICAID, SELFPAY | PROVIDERS: PCP Family Medicine; Visit Provider Anesthesiology Pain Medicine | DX: M48.062 Spinal stenosis, lumbar region with neurogenic claudication (principal); M51.36 Other intervertebral disc degeneration, lumbar region; M54.16 Radiculopathy, lumbar region; M47.816 Spondylosis without myelopathy or radiculopathy, lumbar region; M79.605 Pain in left leg | CPT/HCPCS: 99213 ==

== ENCOUNTER → 2021-05-20 15:31 | Outpatient (BNVA) | payer MEDICARE, MEDICAID, SELFPAY | PROVIDERS: PCP Family Medicine; Visit Provider Orthopaedic Surgery | DX: M54.16 Radiculopathy, lumbar region (principal); Z20.822 Contact with and (suspected) exposure to COVID-19 | CPT/HCPCS: 87635 ==

== ENCOUNTER 2021-05-26 07:04 | Day surgery (SDC) | payer MEDICARE, MEDICAID, SELFPAY ==
--- NOTE | 2021-05-24 12:31 | ECG_ITS ---
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 Measurements Intervals [place] Rate: 103 P: 56 WI: 132 QRS: 66 QRSD: 86 T: 69 QT: 337 QTc: 442 Interpretive Statements SINUS TACHYCARDIA POSSIBLE LEFT ATRIAL ENLARGEMENT [-0.1mV P WAVE IN V1/V2] POSSIBLE RIGHT VENTRICULAR CONDUCTION DELAY [RSR (QR) IN V1/V2] NONSPECIFIC T-WAVE ABNORMALITY Compared to ECG 02/25/2021 14:04:36 T-wave abnormality now present Electronically Signed On 05-24-2021 19:24:31 CDT by Varsha Archer M.D. [id number]
[2021-05-24 12:41] VITALS: BMI 35.3
--- NOTE | 2021-05-24 13:19 | ANES.PREANE2 ---
Pre-Anesthetic Assessment Pre-Anesthetic Assessment: Height/Weight: Height 1.47 m Weight 76.657 kg Proposed Procedure: Operation Date: 05/26/21 13:10 Proposed Procedures p Lumbar Spine Decompression L4/5 L5/S1 79902 [id number] M48.062(Not Applicable) - Harshil H Sienna, DO Was Beta Jesus taken within 24 hours: N/A Was Clonidine taken within 24 hours: N/A Social: Social History: Tobacco and No alcohol Exam: Pre-Anes Outpt Exam: alert, oriented x 3 and regular rate & rhythm Airway: Submandibular: WNL Cervical ROM: WNL MP: 2 Dentition: False Pulmonary: Pulmonary: COPD CV/HEM: CV/HEM: CAD, HTN, MO and PVD GI: GI: GERD Metabolic: Metabolic: Hyperlipidemia, Morbid obesity and Thyroid Musc/skel: Musc/skel: Lower Back Pain Neuropsych: Neuropsych: Anxiety and Depression Anesthetic Plan: ASA status: 3 Anesthesia: General Risk of > 500 ml blood loss (7ml/kg in children): No PFSH Anesthesia PFSH: Social History Smoking and tobacco status: current some day smoker Second hand smoke exposure: Yes Alcohol intake: never History of recent travel: No Data Anesthesia Cardiac Studies: No Data to Display
[2021-05-26] VITALS (11 sets, daily range): BP systolic 98–165; BP diastolic 58–85; PULSE 98–129; RESP 13–24; TEMP 36.2–37.1; O2SAT 73–96
--- NOTE | 2021-05-26 | SCC_ITS ---
Procedure Done: 1. Bilateral L4/5 laminectomy with partial facetectomies 2. Bilateral L5/S1 laminectomies with partial facetectomies 20.5 seconds of fluoroscopic guidance, for a cumulative dose of 5.82 mGy, was provided to Dr. El by the radiology department. C-arm images of the lumbar spine were saved for the patient's permanent record. [facility]
--- NOTE | 2021-05-26 | XR_ITS ---
WS: [id number] Lumbar spine, C-arm fluoroscopy, 05/26/2021 Clinical Data: VIVIENNE PICS Comparison: None. Findings: Dr. El performed lumbar decompression. XR/XR lumbar spine 1V port 11250 Impression: Lumbar decompression.
[2021-05-26] MEDS: sodium chloride 0.9% 1,000 ML 30 ML IV (07:44)
--- NOTE | 2021-05-26 08:08 | P.ANESUD_ITS ---
Pre-Anesthetic Update Pre-Anesthetic Assessment: Date of Surgery/Procedure: 05/26/21 Preop Keesha gnosis: Lumbar stenosis with neurogenic claudication Proposed Procedure: Operation Date: 05/26/21 08:45 Proposed Procedures p Lumbar Spine Decompression L4/5 L5/S1 [id number] M48.062(Not Applicable) - Harshil El, DO Any changes to Pre-Anesthetic Assessment?: No Last Intake: Intake Last Liquid Date 05/25/21 Last Liquid Time 21:00 Last Solid Date 05/25/21 Last Solid Time 17:00 Vitals: Temperature 97.2 F L 05/26/21 07:22 Temperature Source Temporal Artery S can 05/26/21 07:22 Pulse Rate 115 H 05/26/21 07:22 Respiratory Rate 18 05/26/21 07:22 Blood Pressure 122/83 05/26/21 07:22 Blood Pressure Kena n 96 05/26/21 07:22 Pulse Oximetry 93 05/26/21 07:22 Oxygen Delivery Me thod 05/26/21 07:33 Exam: Pre-Anes Outpt Exam: alert, oriented x 3, clear to auscultation bilaterally and regular rate & rhythm Cardiac Studies: No Data to Display
--- NOTE | 2021-05-26 08:25 | W.PM.OPSUD ---
Surgery/Procedure H&P Update DATE OF PROCEDURE: May 26, 2021 DATE H&P PERFORMED: 04/27/21 H&P UPDATE INFORMATION: I have reviewed H&P completed within last 30 days, I have examined patient prior to procedure and No changes to prior documentation PREOP DIAGNOSIS: Lumbar stenosis with neurogenic claudication PLANNED PROCEDURE: Operation Date: 05/26/21 08:45 Proposed Procedures p Lumbar Spine Decompression L4/5 L5/S1 84025 46222 M48.062(Not Applicable) - Harshil El DO
--- NOTE | 2021-05-26 10:24 | P.OP_ITS ---
Operative Report Date of procedure: May 26, 2021 Pre-op Diagnosis: Lumbar stenosis with neurogenic claudication Post-op diagnosis: same Procedure Done: 1. Bilateral L4/5 laminectomy with partial facetectomies 2. Bilateral L5/S1 laminectomies with partial facetectomies Surgeon: Harshil El Web Press Roll Tender: Cesar Cobb Web Press Roll Tender: The real estate administrative assistant, Cesar Cobb, LISS was needed for his expertise under the microscope. He was important and necessary throughout the procedure to complete in a safe and timely manner. He assisted with patient positioning prepping and draping tissue retraction suctioning of the operative field protection of the dural sac and tissue closure Anesthesia: General Estimated blood loss (mL): 5 Condition: stable Disposition: PACU Procedure: 1. Bilateral L4/5 laminectomy with partial facetectomies 2. Bilateral L5/S1 laminectomies with partial facetectomies Patient is brought to the operative suite. After undergoing anesthesia they are placed in the prone position. All areas of impingement are well padded. Patient is then prepped and draped in the normal sterile fashion. A skin incision is made over the L4/5 level. This is confirmed under c-arm rhoda dance. A series of dilators are passed and the tubular retractor is docked on the L4 lamina. A bovie is used to clear the soft tissue off the lamina and the L 4/5 facet joint. A high speed juli is then used to perform the laminectomy and take down the medial aspect of the L 4/5 facet joint. A kerrison rongeure was then used to take down the remaining lamina and smooth the edged of the laminectomy up to the point where the ligamentum flavum attaches. Attention was then brought to the medial aspect of the facet joint. The remaining medial aspect of the superior and inferior aspect of the facet joint were taken down with the kerrison from the pedicle of L4 to L 5. The facet joint had significant hypertrophy. Attention was then brought to the Ligamentum Flavum. The ligament was taken do wn from the lamina of L4 to L5 and out medially to the remaining facet joint. The ligament was thick. The dura was then exposed. The dura was in good repair. The L4 nerve was then traced with a curette out the L4/5 foramen and found to be adequately decompressed. The L5 nerve was traced with a curette around the L5 pedicle. The lateral recess was opened with a kerrison helping to further dec ompress the L5 nerve. The tubular retractor was then tilted to the contralateral side. The bovie was used to take down the soft tissue on the spinous process. The high speed juli was used to take down the spinous process and then the contralateral lamina of L4. The kerrison rongeur was used to take down the remaining lamina to the point where the ligamentum flavum attached and the ligamentum flavum was taken down from L4 to L5. The kerrison rongeur was then used to reach across and take down the medial aspect of the contralateral L4/5 facet joint.The currete was used to trace the contralateral L4 nerve out the L4/5 foramen to make sure it was decompressed adequatesly and the L5 was traced around the L5 pedicle. The lateral recess was opened further with the kerrison to ensure the L5 is adequately decompressed. Wound is then irrigated copiously with saline and surgiflo is used to stop any bleeding. The tubular retractor is removed A skin incision is made over the L5/S1 level. This is confirmed under c-arm guidance. A series of dilators are passed and the tubular retractor is docked on the L5 lamina. A bovie is used to clear the soft tissue off the lamina and the L 5/S1 facet joint. A high speed juli is then used to perform the laminectomy and take down the medial aspect of the L 5/S1 facet joint. A kerrison rongeure was then used to take down the remaining lamina and smooth the edged of the laminectomy up to the point where the ligamentum flavum attaches. Attention was then brought to the medial aspect of the facet joint. The remaining medial aspect of the superior and inferior aspect of the facet joint were taken down with the kerrison from the pedicle of L5 to S1. The facet joint had significant hypertrophy. Attention was then brought to the Ligamentum Flavum. The ligament was taken down from the lamina of L5 to S1 and out medially to the remaining facet joint. The ligament was thick. The dura was then exposed. The dura was in good repair. The L5 nerve was then traced with a curette out the L5/S1 foramen and found to be adequately decompressed. The S1 nerve was traced with a curette around the S1 pedicle. The lateral recess was opened with a kerrison helping to further decompress the S1 nerve. The tubular retractor was then tilted to the contralateral side. The bovie was used to take down the soft tissue on the spinous process. The high speed juli was used to take down the spinous process and then the contralateral lamina of L5. The kerrison rongeur was used to take down the remaining lamina to the point where the ligamentum flavum attached and the ligamentum flavum was taken down from L5 to S1. The kerrison rongeur was then used to reach across and take down the medial aspect of the contralateral L5/S1 facet joint.The currete was used to trace the contralateral L5 nerve out the L5/S1 foramen to make sure it was decompressed adequatesly and the S1 was traced around the S1 pedicle. The lateral recess was opened further with the kerrison to ensure the S1 is adequately decompressed. Wound is then irrigated copiously with saline and surgiflo is used to stop any bleeding. The tubular retractor is removed and the wound is closed with vicryl and monocryl suture. Glue is then used to protect the wound. A sterile dressing is then placed. Patient was then placed in the supine position and transferred to the PACU in stable condition.
--- NOTE | 2021-05-26 10:34 | P.PCN_ITS ---
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
--- NOTE | 2021-05-26 10:34 | PM.PACU ---
PACU note PACU note: VSS, Good respiratory effort, report to PULP GRINDER Post-Anesthesia Exam: awake
--- NOTE | 2021-05-26 10:41 | SUR.PHASEI ---
1025 RECIEVED PT SLEEPY WITH SHALLOW RESPIRATIONS, PT DOES NOT AWAKE TO STRONG TOUCH STIMULI, AND VOICE, ORAL AIRWAY PLACED BY RN AT BEDSIDE, MANUAL ASSIST TO KEEP AIRWAY OPEN, VSS SAT LOW, 8L MASK IN PLACE 1030 ORDERS RECIEVED FROM Alexa LACEY CRNA AT BEDSIDE TO GIVE ALBUTEROL NEB , STARTED ORDERED, WITH ORAL AIRWAY PATENT AND GOOD RESP EFFORT NOTED SATS INCREASING NOW. 1042 PT MORE ALERT ORAL AIRWAY OUT PT COUGHING FORCEFULLY PER COMMAND, VSS PT AWAKE AND ALERT, DENIES PAIN AT THIS TIME.
--- NOTE | 2021-05-26 10:49 | SUR.PHASEI ---
PT QUICKLY BACK TO SLEEP , PT STATES SHE USES O2 NC AT HOME PRN, PT PLACED ON 3LNC SATS HOLDING AT 95% PT WITH SNORING RESP UNLESS AWAKENED VSS.
--- NOTE | 2021-05-26 10:50 | SUR.PHASEI ---
PT MOVES ALL EXT TO COMMAND, BILAT FEET MOVE STRONG AND TO COMMAND.
[2021-05-26] MEDS: HYDROcodone-acetaminophen 5-325 mg Tablet 1 TAB PO (11:16)
--- NOTE | 2021-05-26 15:44 | ANE.PACU2 ---
Inpatient post-anesthesia follow up: Airway intact: Yes Vital signs: Temperature 97.4 F Pulse Rate 98 Respiratory Rate 18 Blood Pressure 110/85 Pulse Oximetry 92 Oxygen Delivery Me thod Room Air Oxygen Flow Rate 2 Fraction of Inspir ed Oxygen Hydration adequate: Yes Nausea and vomiting: No Pain level: 3 Mental status: Baseline
== END 2021-05-26 11:57 | disposition home or self-care (01) ==
PROVIDERS: PCP Family Medicine; Visit Provider Orthopaedic Surgery
PROC: (CPT 63005; principal; 2021-05-26 08:45)
DX: M48.062 Spinal stenosis, lumbar region with neurogenic claudication (principal); J44.9 Chronic obstructive pulmonary disease, unspecified; I25.10 Atherosclerotic heart disease of native coronary artery without angina pectoris; I10 Essential (primary) hypertension; I25.2 Old myocardial infarction; K21.9 Gastro-esophageal reflux disease without esophagitis; E78.5 Hyperlipidemia, unspecified; E66.01 Morbid (severe) obesity due to excess calories; Z68.35 Body mass index [BMI] 35.0-35.9, adult; F41.9 Anxiety disorder, unspecified; F32.9 Major depressive disorder, single episode, unspecified; F17.210 Nicotine dependence, cigarettes, uncomplicated
CPT/HCPCS: 63047; 63048; 72020; 76000; 93005; J0690; J1100; J2370; J2405; J2704; J2710; J3010; J3490; J7030; J7611

== ENCOUNTER → 2021-08-17 13:53 | Outpatient (BNVA) | payer MEDICARE, MEDICAID, SELFPAY | PROVIDERS: PCP Family Medicine; Visit Provider Orthopaedic Surgery | DX: M54.16 Radiculopathy, lumbar region (principal); M47.816 Spondylosis without myelopathy or radiculopathy, lumbar region; M48.062 Spinal stenosis, lumbar region with neurogenic claudication | CPT/HCPCS: 72100; 73502 ==

== ENCOUNTER → 2021-11-18 13:51 | Outpatient (BNVA) | payer MEDICARE, MEDICAID, SELFPAY | PROVIDERS: PCP Family Medicine; Visit Provider Physician Assistant | DX: M48.062 Spinal stenosis, lumbar region with neurogenic claudication (principal) | CPT/HCPCS: 99213; 99999 ==

== ENCOUNTER → 2021-12-07 11:07 | Outpatient (BNVA) | payer MEDICARE, MEDICAID, SELFPAY | PROVIDERS: PCP Family Medicine; Referring Provider Family Medicine; Visit Provider Surgery | DX: Z12.11 Encounter for screening for malignant neoplasm of colon (principal); Z80.0 Family history of malignant neoplasm of digestive organs; K21.9 Gastro-esophageal reflux disease without esophagitis | CPT/HCPCS: 99204 ==

== ENCOUNTER 2022-01-06 12:39 | Outpatient (CLI) | payer MEDICARE, MEDICAID, SELFPAY ==
--- NOTE | 2022-01-06 13:03 | XR_ITS ---
WS: [id number] SCREENING DEXA SCAN [email or web address] CLINICAL INFORMATION: POSTMENOPAUSAL COMPARISON: None. FINDINGS: LEFT forearm bone mineral density measures 0.788 with a T score of -1.0 and Z score 0.6 Left femoral neck bone mineral density measures 0.982 g/cm2. This corresponds to a T score of -0.2 an d Z score of 0.8. Right femoral neck bone mineral density measures 0.990 g/cm2. This corresponds to a T score -0.1of an d Z score of 0.9. Mean femoral neck bone mineral density measures 0.986 g/cm2. This corresponds to a T score of -0.2 an d Z score of 0.9. XR/XR DEXA axial skeleton* [id number] IMPRESSION: Osteopenia in the LEFT forearm the lower end of the range. Normal bone femoral necks. Patient's FRAX calculated 10 year probability for major osteoporotic fracture i s 20.6 % and osteoporotic hip fracture is 5.2%.
--- NOTE | 2022-01-06 13:03 | MM_ITS ---
WS: [id number] BILATERAL 3D TOMOSYNTHESIS DIGITAL SCREENING MAMMOGRAPHY WITH CAD CLINICAL INFORMATION: SCREENING HISTORY: Screening mammogram. Palpable regions in the axilla thought to represent fatty tissue COMPARISON: February 12, 2021 TECHNIQUE: Bilateral CC and MLO views. FINDINGS: Scattered fibroglandular densities bilaterally. Incidental punctate and lucent centered calcification s. Palpable markers overlying the axilla demonstrated normal underlying fatty tissue. No suspicious f ocal mass, asymmetry, calcifications, or architectural distortion. No evidence of malignancy. MM/[place] [id number] IMPRESSION: BI-RADS: 2-Benign FOLLOW UP: 1 Year Follow-up Recommend return to annual screening mammography.
== END 2022-01-06 12:40 | disposition home or self-care (01) ==
LOC: RAD 12:40
PROVIDERS: PCP Family Medicine; Visit Provider Family Medicine
DX: Z12.31 Encounter for screening mammogram for malignant neoplasm of breast (principal); N95.9 Unspecified menopausal and perimenopausal disorder
CPT/HCPCS: 77063; 77067; 77080

== ENCOUNTER 2022-01-26 07:10 | Day surgery (SDC) | payer MEDICARE, MEDICAID, SELFPAY ==
[2022-01-24 17:56] VITALS: BMI 31.3
[2022-01-26 07:29] VITALS: BP 108/62; PULSE 106; RESP 18; TEMP 36.3; O2SAT 93
[2022-01-26] MEDS: sodium chloride 0.9% 1,000 ML 30 ML IV (07:47)
--- NOTE | 2022-01-26 08:14 | ANES.PREANE2 ---
Pre-Anesthetic Assessment Height/Weight: Height 1.47 m Weight 68.039 kg Temp Pulse Resp BP Pulse Ox 97.4 F L 106 H 18 108/62 93 01/26/22 07:29 01/26/22 07:29 01/26/22 07:29 01/26/22 07:29 01/26/22 07:29 Preop Diagnosis: upper gi symptoms Operation Date: 01/26/22 08:45 Proposed Procedures p EGD [id number]/z12.11/z80.0/k21.9(Not Applicable) - Trevon Scott MD s Colonoscopy(Not Applicable) - Trevon Scott MD Familial anesthetic complications: none Was Beta Jesus taken within 24 hours: N/A Was Clonidine taken within 24 hours: N/A Last intake: Intake Last Liquid Date 01/25/22 Last Liquid Time 20:30 Last Solid Date 01/24/22 Last Solid Time 15:00 Social Tobacco and No alcohol Exam alert, oriented x 3, clear to auscultation bilaterally and regular rate & rhythm Airway Submandibular: within normal limits Cervical ROM: within normal limits Mallampati: Class III Dentition: false Pulmonary Chronic Obstructive Pulmonary Disease CV/HEM None reported METS = 4 None reported Hepatic None reported GI Gastroesophageal Reflux Disease Gerd w/ bloating/belching when not on PPI Metabolic Thyroid Disease Musc/skel Lower Back Pain and Osteoarthritis/DJD Facet arthropathy Neuropsych Anxiety Anesthetic Plan ASA status: 3 (66 year old female smoker with COPD, GERD, hypothyroidism, anxiety ) Anesthesia: Anesthesia Evaluation, General and MAC Other: I discussed with the patient risks, goals, and benefits of MAC and general anesthesia. We discussed spectrum of MAC anesthesia including conversion to general as well as possibility of recall of intraoperative stimuli including discomfort/pain. Patient agrees to proceed with MAC. Risk of > 500 ml blood loss (7ml/kg in children): No Medications/Allergies Home Medications Medication Instructions Recorded Confirmed Last Taken Type alprazolam 0.25 mg tablet (Xanax) 0.25 mg PO TID PRN 02/04/21 01/26/22 01/25/22 History levothyroxine 25 mcg tablet 25 mcg PO DAILY 02/04/21 01/26/22 01/25/22 History (Synthroid) acetaminophen 500 mg tablet 500 - 1,000 mg PO PRN 02/25/21 01/26/22 01/24/22 History (Tylenol Extra Strength) amitriptyline 100 mg tablet 100 mg PO BEDTIME 02/25/21 01/26/22 01/25/22 History buspirone 15 mg tablet 15 mg PO BID 02/25/21 01/26/22 01/25/22 History gabapentin 300 mg capsule See Rx Instructions .ROUTE .COMPLEX 02/25/21 01/26/22 01/25/22 History omeprazole 20 mg capsule,delayed 20 mg PO BID 02/25/21 01/26/22 01/25/22 History release simvastatin 20 mg tablet 20 mg PO DAILY 02/25/21 01/26/22 01/25/22 History turmeric 1 cap PO DAILY 02/25/21 01/26/22 01/25/22 History walker #1 ea 04/05/21 01/24/22 Unknown Rx meloxicam 15 mg tablet 15 mg PO DAILY 05/24/21 01/26/22 01/25/22 History albuterol sulfate 90 mcg/actuation 2 puff INHALATION QID PRN 01/24/22 01/26/22 01/24/22 History aerosol inhaler Allergies Allergy/AdvReac Type Severity Reaction Status Date / Time morphine Allergy hives Verified 01/26/22 07:26 Current Medications Generic Name Dose Route Start Last Admin Trade Name Freq PRN Reason Stop Dose Admin Sodium Chloride 1,000 mls @ 30 mls/hr 01/26/22 07:30 01/26/22 07:47 Sodium Chloride 0.9% IV 01/27/22 07:29 30 mls/hr .Q24H RAZIA Administration PFSH Anesthesia Medical History Anxiety GERD (gastroesophageal reflux disease) History of colon polyps Hyperlipidemia Hypothyroidism Surgical History History of back surgery History of colonoscopy 20 years History of esophagogastroduodenoscopy History of hysterectomy History of neck surgery Family History Other Cancer Diabetes Hypertension Social History Smoking and tobacco status: current every day smoker Second hand smoke exposure: Yes Alcohol intake: never History of recent travel: No Data Anesthesia Cardiac Studies: No Data to Display
--- NOTE | 2022-01-26 08:19 | W.PM.OPSFHP ---
Same Day Surgery H&P Indication for Procedure/HPI DATE OF PROCEDURE: January 26, 2022 CHIEF COMPLAINT/INDICATIONFOR SURGICAL PROCEDURE: gerd/ colon polyps PREOP DIAGNOSIS: upper gi symptoms PLANNED PROCEDURE: Operation Date: 01/26/22 08:45 Proposed Procedures p EGD [id number]/z12.11/z80.0/k21.9(Not Applicable) - Trevon Scott MD s Colonoscopy(Not Applicable) - Trevon Scott MD Medications/Allergies* Home Medications Medication Instructions Recorded Confirmed Type alprazolam 0.25 mg tablet (Xanax) 0.25 mg PO TID PRN 02/04/21 01/26/22 History levothyroxine 25 mcg tablet 25 mcg PO DAILY 02/04/21 01/26/22 History (Synthroid) acetaminophen 500 mg tablet 500 - 1,000 mg PO PRN 02/25/21 01/26/22 History (Tylenol Extra Strength) amitriptyline 100 mg tablet 100 mg PO BEDTIME 02/25/21 01/26/22 History buspirone 15 mg tablet 15 mg PO BID 02/25/21 01/26/22 History gabapentin 300 mg capsule See Rx Instructions .ROUTE .COMPLEX 02/25/21 01/26/22 History omeprazole 20 mg capsule,delayed 20 mg PO BID 02/25/21 01/26/22 History release simvastatin 20 mg tablet 20 mg PO DAILY 02/25/21 01/26/22 History turmeric 1 cap PO DAILY 02/25/21 01/26/22 History meloxicam 15 mg tablet 15 mg PO DAILY 05/24/21 01/26/22 History albuterol sulfate 90 mcg/actuation 2 puff INHALATION QID PRN 01/24/22 01/26/22 History aerosol inhaler Allergies/Adverse Reactions Allergy/AdvReac Type Severity Reaction Status Date / Time morphine Allergy hives Verified 01/26/22 07:26 Current Medications: Generic Name Dose Route Start Last Admin Trade Name Freq PRN Reason Stop Dose Admin Sodium Chloride 1,000 mls @ 30 mls/hr 01/26/22 07:30 01/26/22 07:47 Sodium Chloride 0.9% IV 01/27/22 07:29 30 mls/hr .Q24H RAZIA Administration Pertinent History/Comorbid Conditions* Medical History (Updated 12/07/21 @ 11:24 by Trevon Scott MD) Anxiety GERD (gastroesophageal reflux disease) History of colon polyps Hyperlipidemia Hypothyroidism Surgical History (Updated 12/07/21 @ 11:23 by Trevon Scott MD) History of back surgery History of colonoscopy 20 years History of esophagogastroduodenoscopy History of hysterectomy History of neck surgery Family History (Updated 12/07/21 @ 11:17 by Pilar Yan MA) Diabetes Cancer Hypertension Social History Smoking and tobacco status: current every day smoker Second hand smoke exposure: Yes Alcohol intake: never History of recent travel: No Pertinent Exam Findings alert, oriented x 3 and regular rate & rhythm Recommendations Surgery/Procedure today Coding Level of Care Code Acute Director New Product for Sharron Lr
[2022-01-26 09:11] VITALS: BP 106/72; PULSE 96; RESP 16; TEMP 36.1; O2SAT 98
[2022-01-26 09:27] VITALS: BP 125/70; PULSE 96; RESP 18; O2SAT 90
--- NOTE | 2022-01-26 15:04 | ANE.PACU2 ---
Inpatient post-anesthesia follow up: Airway intact: Yes Vital signs: Temperature 97 F Pulse Rate 96 Respiratory Rate 18 Blood Pressure 125/70 Pulse Oximetry 90 Oxygen Delivery Me thod Room Air Oxygen Flow Rate 3.5 Fraction of Inspir ed Oxygen Hydration adequate: Yes Nausea and vomiting: No Pain level: 1 Mental status: Baseline
== END 2022-01-26 10:50 | disposition home or self-care (01) ==
PROVIDERS: PCP Family Medicine; Visit Provider Surgery
PROC: 0DJ08ZZ Inspection of Upper Intestinal Tract, Via Natural or Artificial Opening Endoscopic (ICD-10-PCS; CPT 43235; principal; 2022-01-26 08:15)
PROC: 0DJD8ZZ Inspection of Lower Intestinal Tract, Via Natural or Artificial Opening Endoscopic (ICD-10-PCS; CPT 45378; 2022-01-26 08:15)
DX: Z12.11 Encounter for screening for malignant neoplasm of colon (principal); Z80.0 Family history of malignant neoplasm of digestive organs; K21.9 Gastro-esophageal reflux disease without esophagitis; K64.8 Other hemorrhoids; D12.2 Benign neoplasm of ascending colon; D12.5 Benign neoplasm of sigmoid colon; D12.8 Benign neoplasm of rectum; K57.30 Diverticulosis of large intestine without perforation or abscess without bleeding; J44.9 Chronic obstructive pulmonary disease, unspecified; F41.9 Anxiety disorder, unspecified; F17.200 Nicotine dependence, unspecified, uncomplicated; E03.9 Hypothyroidism, unspecified
CPT/HCPCS: 43235; 45380; 45385; 88305; J2704; J7030

== ENCOUNTER → 2022-02-09 09:12 | Outpatient (BNVA) | payer MEDICARE, MEDICAID, SELFPAY | PROVIDERS: PCP Family Medicine; Visit Provider Surgery | DX: Z09 Encounter for follow-up examination after completed treatment for conditions other than malignant neoplasm (principal) | CPT/HCPCS: 99212 ==

== ENCOUNTER 2022-02-23 07:52 | Outpatient (CLI) | payer MEDICARE, MEDICAID, SELFPAY ==
--- NOTE | 2022-02-23 08:07 | US_ITS ---
WS: [id number] INDICATION: Lymphadenopathy TECHNIQUE: Ultrasound both axilla FINDINGS: Ultrasound both axilla. Normal-appearing lymph nodes in both axillae with normal fatty hilu m and no significant cortical thickening. No visualized lymphadenopathy. US/US soft tissue/extremity [id number] IMPRESSION: Normal-appearing lymph nodes in both axilla.
== END 2022-02-23 07:53 | disposition home or self-care (01) ==
PROVIDERS: PCP Family Medicine; Visit Provider Family Medicine
DX: R59.1 Generalized enlarged lymph nodes (principal)
CPT/HCPCS: 76882

== ENCOUNTER → 2022-06-02 09:17 | Outpatient (BNVA) | payer MEDICARE, MEDICAID, SELFPAY | PROVIDERS: PCP Family Medicine; Visit Provider Family Medicine | DX: E03.9 Hypothyroidism, unspecified (principal); E11.9 Type 2 diabetes mellitus without complications; E78.5 Hyperlipidemia, unspecified | CPT/HCPCS: 80053; 80061; 83036; 84443 ==

== ENCOUNTER 2022-06-28 13:32 | Outpatient (CLI) | payer MEDICARE, MEDICAID, SELFPAY ==
--- NOTE | 2022-06-28 14:30 | MR_ITS ---
WS: [id number] MRI LUMBAR SPINE NONCONTRAST TECHNIQUE: Sagittal T1, T2 and STIR imaging. Axial T1 and T2 imaging. CLINICAL INFORMATION: worsening sciatica COMPARISON: MRI February 06, 2021 FINDINGS: Mild lumbar curve. No acute compression. Disc bulging worse at L4-L5. New disc extrusion in the subar ticular recess posterior to the L4 vertebral body extending into the LEFT superior neural foramen. Th is impinges the exiting LEFT L4 nerve root. Moderate to severe central canal stenosis with impingemen t on the traversing LEFT L4 and L5 nerve roots. Disc material measures 14 x 8 mm. L1-L2: No significant disc bulging. Mild facet arthropathy. Mild RIGHT foraminal narrowing. L2-L3: Mild disc bulging and osteophytic ridging. Narrowing of the subarticular recess bilaterally. M oderate facet arthropathy. Mild RIGHT foraminal narrowing. L3-L4: Mild disc bulging in combination with facet arthropathy and ligamentum flavum hypertrophy resu lts in moderate central canal stenosis. Narrowing of the subarticular recess bilaterally. Mild RIGHT greater than LEFT foraminal narrowing. L4-L5: LEFT subarticular disc extrusion with cephalad migration posterior to the L4 vertebral body. M oderate to severe central canal stenosis with impingement on the traversing left-sided nerve roots. E xtension into the LEFT superior neuroforamen impinges the exiting LEFT L4 nerve root with moderate to severe LEFT foraminal narrowing. Moderate facet arthropathy at this level with small facet effusions . Severe central canal stenosis at the L4-L5 disc space level appears slightly progressed. L5-S1: Mild disc bulging with slight effacement of ventral thecal sac. Slight contact of the traversi ng LEFT S1 nerve root. Mild RIGHT greater than LEFT foraminal narrowing. Moderate facet arthropathy. Visualized pelvic bony structures: Normal. Paravertebral soft tissues: Normal. MR/MR lumbar spine wo con* [id number] IMPRESSION: 1. Mild lumbar curve. No acute compression. 2. New LEFT L4-L5 disc extrusion with cranial migration of disc material into the subarticular recess. Disc material measures 14 x 8 mm with impingement libby ersing LEFT L4 and L5 nerve roots with moderate to severe central canal stenosi s. Impingement on the exiting LEFT L4 nerve root with moderate to severe LEFT f oraminal narrowing. 3. Severe central canal stenosis at the L4-L5 disc space level due to disc bul ging with facet arthropathy and ligamentum flavum hypertrophy. This appears sli ghtly progressed. 4. Mild disc bulging L5-S1 slightly impinges the traversing LEFT S1 nerve root . 5. Mild central canal stenosis L2-L3 and moderate central canal stenosis L3-L4 . 6. Mild RIGHT L5-S1 bony foraminal narrowing. 7. Moderate facet arthropathy L3-L5.
== END 2022-06-28 13:33 | disposition home or self-care (01) ==
LOC: RAD 13:37
PROVIDERS: PCP Family Medicine; Visit Provider Family Medicine
DX: M54.16 Radiculopathy, lumbar region (principal); M48.062 Spinal stenosis, lumbar region with neurogenic claudication; M51.27 Other intervertebral disc displacement, lumbosacral region
CPT/HCPCS: 72148

== ENCOUNTER → 2022-07-05 13:03 | Outpatient (BNVA) | payer MEDICARE, MEDICAID, SELFPAY | PROVIDERS: PCP Family Medicine; Visit Provider Physician Assistant | DX: M48.062 Spinal stenosis, lumbar region with neurogenic claudication (principal); M47.816 Spondylosis without myelopathy or radiculopathy, lumbar region; M51.26 Other intervertebral disc displacement, lumbar region | CPT/HCPCS: 72100; 99214 ==

== ENCOUNTER 2022-07-11 07:15 | Inpatient (IN) | payer MEDICARE, MEDICAID, SELFPAY ==
[2022-07-08 10:27] VITALS: BMI 31.3
[2022-07-11] VITALS (61 sets, daily range): BP systolic 70–153; BP diastolic 38–87; PULSE 103–119; RESP 9–35; TEMP 36.2–36.6; O2SAT 89–98
--- NOTE | 2022-07-11 | XR_ITS ---
WS: [id number] EXAMINATION: XR lumbar spine 2-3V* [id number] L-SPINE : 3 views REASON FOR EXAM: L2 to pelvis instrumented fusion COMPARISON: None available. ORDER DATE: 07/11/2022 12:00 AM FINDINGS: The spinal instrumentation with bilateral pedicle screws and rods extending from L2 to S2. Laminectom ies noted at L4 and L5. Vertebral alignment and disc spaces are well maintained. XR/XR lumbar spine 2-3V* [id number] IMPRESSION: Postsurgical changes as described above.
[2022-07-11 07:37] LABS: Basophils # 0.1 10^3/uL (0.0-0.1); Basophils % 0.8 %; Eosinophils # 0.2 10^3/uL (0.0-0.8); Eosinophils % 2.4 %; Hematocrit 44.4 % (37.0-47.0); Hemoglobin 14.7 g/dL (11.5-15.3); Lymphocytes % 35.5 %; Mean Corpuscular HGB Conc 33.1 g/dL (30.0-36.0); Mean Corpuscular Hemoglobin 29.9 pg (28.0-34.0); Mean Corpuscular Volume 90.2 fl (81-99); Mean Platelet Volume 11.1 fL (7.4-10.4); Monocytes # 0.7 10^3/uL (0.2-0.9); Neutrophils # 4.43 10^3/uL (1.8-7.7); Neutrophils % 53.1 %; Nucleated Red Blood Cells % 0 %; Platelet Count 319 10^3/cmm (130-400); Red Blood Count 4.92 10^6/uL (4.1-5.3); Red Cell Distribution Width 13.6 % (12.1-15.1); White Blood Count 8.4 10^3/uL (4.0-10.0)
[2022-07-11] MEDS: sodium chloride 0.9% 1,000 ML 30 ML IV (07:37)
--- NOTE | 2022-07-11 07:53 | W.PM.OPSUD ---
Surgery/Procedure H&P Update DATE OF PROCEDURE: July 11, 2022 DATE H&P PERFORMED: 07/05/22 H&P UPDATE INFORMATION: I have reviewed H&P completed within last 30 days, I have examined patient prior to procedure and No changes to prior documentation PREOP DIAGNOSIS: Degenerative disc disease lumbar spine HNP left L3-4, lumbar stenosis PLANNED PROCEDURE: Operation Date: 07/11/22 08:10 Proposed Procedures p Spinal Fusion L2-PELVIS [id number](Not Applicable) - Harshil El DO
[2022-07-11] MEDS: albuterol 2.5 mg/3 mL Neb INHALATION (07:54)
[2022-07-11] MEDS: ipratropium 0.5 mg/2.5 mL Neb INHALATION (07:55)
[2022-07-11] MEDS: HYDROmorphone 1 mg/mL INJ 1 mL 0.5 MG IVP (07:55)
[2022-07-11] MEDS: scopolamine 1.5 Patch 1 PATCH TRANSDERMA (08:33)
[2022-07-11] MEDS: ondansetron 2 mg/ML SDV 2 mL 4 MG IVP (08:33)
[2022-07-11] MEDS: diphenhydrAMINE 50 mg/mL SDV 1mL 12.5 MG IVP (08:36)
[2022-07-11] MEDS: ceFAZolin 2,000 MG in sodium chloride 0.9% (plus) 50 ML 100 MG IV ×2 (08:52→17:27)
[2022-07-11] MEDS: vancomycin 1,000 MG SDV 1000 MG XX (09:30)
[2022-07-11] MEDS: heparin, porcine 1,000 unit/mL INJ 10 mL 10000 UNIT IRRIGATION (09:31)
--- NOTE | 2022-07-11 09:48 | SUR.OPER ---
attempted to contact friend to notify her of surgical start. no answer.
[2022-07-11] MEDS: thrombin 5,000 unit SDV 5000 UNIT XX (09:49)
--- NOTE | 2022-07-11 13:06 | PM.OP ---
Operative Report Date of procedure: July 11, 2022 Pre-op diagnosis: Preop Diagnosis Degenerative disc disease lumbar spine HNP left L3-4, lumbar stenosis Post-op diagnosis: same Procedure done: 1. L2- Pelvis fusion 2. L2-S1 Instrumentation 3. Lumbopelvic fixation 4. L3/4 laminectomy with partial facetectomy; diskectomy 5. L4/5 Laminectomy with partaial facetectomy 6. Computer navigation stereotactic for spine 7. use of autograft 8. use of allograft Surgeon: Harshil El Residential Life Director: Cesar Cobb Residential Life Director: The senior underwriting assistant, Cesar Cobb, PAC was needed for his expertise under the microscope. He was important and necessary throughout the procedure to complete in a safe and timely manner. He assisted with patient positioning prepping and draping tissue retraction suctioning of the operative field protection of the dural sac and tissue closure. Estimated blood loss (mL): 250 Procedure: 1. L2- Pelvis fusion 2. L2-S1 Instrumentation 3. Lumbopelvic fixation 4. L3/4 laminectomy with partial facetectomy; diskectomy 5. L4/5 Laminectomy with partaial facetectomy 6. Computer navigation stereotactic for spine 7. use of autograft 8. use of allograft Patient is brought to the operative suite. After undergoing anesthesia, the patient had neuro monitoring attached. Patient was then placed in the prone position on the Jn table. All areas of impingement were well-padded. Patient was then prepped and draped in the normal sterile fashion. Skin incision was then made over the L2 down to S1e. Subperiosteal dissection was made out to the transverse processes of L2 bilaterally and L5 bilaterally and out to the sacral ala's. The [employer] bone marrow aspirate kit was used to aspirate bone marrow aspirate. This was done by using the sharp probe to open up the bone. Aspiration was performed and then the blunt probe was then used to dissect down to through the bone tunnel. An aspirating well drawn back a millimeter approximately 20 cc of bone marrow aspirate was used. Admixed with the allograft and autograft bone that will be used. Next attention was brought to placing the fiducial for the computer navigation. The 2 pins were placed into the right iliac crest. These pins were later removed at the end of the case. The fiducial was attached. The C-arm was brought in and spun around the patient. The information from the C-arm was then linked in the computer in order to facilitate using computer navigation to place pedicle screws. The technique for placing the pedicle screws was to use a drill followed by the gearshift probe linked to computer navigation. Followed by the ball probe to feel the superior inferior medial lateral gangon of the pedicles. Then placement of the screws with computer navigation. Was done at each pedicle. Screws were placed at L2 bilaterally, L3 bilaterally , L4 bilaterally, L5 bilaterally and S1 bilaterally. Next attention was brought to placing the iliac screws. The starting point was made outside and inferior to S1 foramen. The gearshift probe using computer navigation was placed through the ala and into the SI joint out into the iliac crest. Into the tube of bone. Next the pedicle feeler was used to palpate that the gagnon were intact a tap was used and then an 9.5 x 80 Yinka screw was placed. This process was repeated on the opposite side as well using the same technique of using the gearshift followed by the pedicle feeler followed by the tap followed by the pedicle feeler followed by placement screw all using computer navigation. Next attention was brought to performing the laminectomy ofL4. This was done using the high-speed bur Kerrisons and curettes. Once the lamina was removed and then attention was brought to performing a partial facetectomy on the contralateral side. This was done again using the high-speed bur curettes and Kerrisons. The ligamentum flavum was taken down bilaterally from L4 to L5. Attention was then brought to the facet on the ipsilateral side. The facet was taken down. The L5 nerve was decompressed as it passed around the L5 pedicle. The L4 nerve was traced out the L4-5 foramen felt to be adequately decompressed bilaterally. Next attention was brought to performing the laminectomy ofL3. This was done using the high-speed bur Kerrisons and curettes. Once the lamina was removed and then attention was brought to performing a partial facetectomy on the contralateral side. This was done again using the high-speed bur curettes and Kerrisons. The ligamentum flavum was taken down bilaterally from L3 to L4. Attention was then brought to the facet on the ipsilateral side. The facet was taken down. The L4 nerve was decompressed as it passed around the L4 pedicle. The L3 nerves were traced out the L3-4 foramens bilaterally. Extension was brought to perform the discectomy that was extruded from the L3-4 disc space inferiorly behind the L4 body. This disc was extremely large and tenting the L4 nerve on the left side. The disc was removed using curved curettes and pituitaries. Once the disc was removed the disc space was irrigated out. And small fragments were all cleaned out. Attention was then brought to attaching the rods to the screws placed in the L2 bilaterally, L3 bilaterally L4 bilaterally L5 on the left side S1 bilaterally and into the iliac crest sacral ala iliac screws. Caps were torqued into position. Locking the construct in place. Wound was copiously irrigated and then attention was brought to decorticating the facets and transverse processes laterally. Bone that was taken down from the lamina was used along with osteoamp fibers and sponges were packed into the lateral gutters along the facet joints. This was done bilaterally. Wound was then closed in a layered fashion starting with the thoracolumbar fascia. 0-vicryl was used the sub cutaneous tissue was closed with 2-0 vicryl and skin with 4-0 monocryl. Glue was then used to seal the skin and a steril dressing was applied. Patient was then placed in the supine position. The endotracheal tube was removed and patient was transferred to the PACU in stable condition.
[2022-07-11] MEDS: albumin 12.5 GM/250 ML VIAL IV (13:31)
[2022-07-11 13:34] LABS: Basophils # 0.1 10^3/uL (0.0-0.1); Basophils % 0.3 %; Eosinophils % 0.1 %; Hematocrit 29.6 % (37.0-47.0); Hemoglobin 9.3 g/dL (11.5-15.3); Lymphocytes # 2.6 10^3/uL (0.8-4.8); Lymphocytes % 12.2 %; Mean Corpuscular HGB Conc 31.4 g/dL (30.0-36.0); Mean Corpuscular Hemoglobin 29.9 pg (28.0-34.0); Mean Corpuscular Volume 95.2 fl (81-99); Mean Platelet Volume 11.4 fL (7.4-10.4); Monocytes # 0.3 10^3/uL (0.2-0.9); Monocytes % 1.4 %; Neutrophils # 17.85 10^3/uL (1.8-7.7); Nucleated Red Blood Cells % 0 %; Platelet Count 294 10^3/cmm (130-400); Red Blood Count 3.11 10^6/uL (4.1-5.3); Red Cell Distribution Width 13.9 % (12.1-15.1)
[2022-07-11 13:40] LABS: Slide Review Slide Review Perform
[2022-07-11] MEDS: ipratropium-albuterol 3 mL Neb INHALATION ×3 (15:16→23:00)
--- NOTE | 2022-07-11 15:19 | ANES.PREANE2 ---
Pre-Anesthetic Assessment Height/Weight: Height 1.47 m Weight 68.039 kg Temp Pulse Resp BP Pulse Ox O2 Del Method O2 Flow Rate 97.8 F 117 H 18 119/50 95 4 07/11/22 15:03 07/11/22 15:03 07/11/22 15:03 07/11/22 15:03 07/11/22 15:03 07/11/22 15:03 07/11/22 15:03 Preop Diagnosis: Degenerative disc disease lumbar spine HNP left L3-4, lumbar stenosis Operation Date: 07/11/22 08:10 Proposed Procedures p Spinal Fusion L2-PELVIS [id number](Not Applicable) - Harshil El DO Familial anesthetic complications: none Was Beta Jesus taken within 24 hours: N/A Was Clonidine taken within 24 hours: N/A Last intake: Intake Last Liquid Date 07/10/22 Last Liquid Time 17:00 Last Solid Date 07/10/22 Last Solid Time 09:00 Social Tobacco and No alcohol Exam alert, oriented x 3 and regular rate & rhythm Airway Submandibular: within normal limits Cervical ROM: within normal limits Mallampati: Class II Dentition: false Pulmonary Chronic Obstructive Pulmonary Disease CV/HEM Coronary Artery Disease, Hypertension, Myocardial Infarction and Peripheral Vascular Disease GI Gastroesophageal Reflux Disease Metabolic Diabetes Mellitus, Hyperlipidemia, Morbid Obesity and Thyroid Disease Musc/skel Lower Back Pain Neuropsych Anxiety and Depression Anesthetic Plan ASA status: 3 Anesthesia: General Other: A.line, Transfusion OK if necessary Medications/Allergies Home Medications Medication Instructions Recorded Confirmed Last Taken Type acetaminophen 500 mg tablet 500 - 1,000 mg PO PRN 02/25/21 07/11/22 07/10/22 History (Tylenol Extra Strength) buspirone 15 mg tablet 15 mg PO BID 02/25/21 07/11/22 07/10/22 History gabapentin 300 mg capsule See Rx Instructions .Route .COMPLEX 02/25/21 07/11/22 07/10/22 History omeprazole 20 mg capsule,delayed 20 mg PO BID 02/25/21 07/11/22 07/10/22 History release simvastatin 20 mg tablet 20 mg PO DAILY 02/25/21 07/11/22 07/10/22 History turmeric 1 cap PO DAILY 02/25/21 07/11/22 07/10/22 History walker #1 ea 04/05/21 07/05/22 Unknown Rx meloxicam 15 mg tablet 15 mg PO DAILY 05/24/21 07/11/22 07/10/22 History albuterol sulfate 90 mcg/actuation 2 puff inhalation QID PRN 03/02/22 07/11/22 07/10/22 Rx aerosol inhaler Shortness Of Breath #8.5 grams [facility] True Matrix Meter to #1 ea 05/18/22 07/05/22 Unknown Rx use once daily blood sugar diagnostic (True #100 ea 05/19/22 07/05/22 Unknown Rx Metrix Glucose Test Strip) levothyroxine 25 mcg tablet 25 mcg PO DAILY #90 tabs 05/19/22 07/11/22 07/10/22 Rx (Synthroid) blood-glucose meter (True Metrix #1 ea 05/25/22 07/05/22 Unknown Rx Glucose Meter) alprazolam 0.25 mg tablet (Xanax) 0.25 mg PO TID PRN Anxiety #90 tabs 05/29/22 07/11/22 07/10/22 Rx amitriptyline 100 mg tablet See Rx Instructions .Route 05/29/22 07/11/22 07/10/22 Rx .COMPLEX #90 tabs hydrocodone 5 mg-acetaminophen 325 1 - 2 tab PO Q4H PRN pain 5 days 07/05/22 07/11/22 07/10/22 Rx mg tablet #40 tabs Intraoperative Neuromonitoring #1 ea 07/08/22 Unknown Rx Allergies Allergy/AdvReac Type Severity Reaction Status Date / Time morphine Allergy hives Verified 07/05/22 13:05 naproxen [From Aleve] AdvReac Intermediate gerd Verified 07/05/22 13:05 Current Medications Generic Name Dose Route Start Last Admin Trade Name Freq PRN Reason Stop Dose Admin Albuterol/Ipratropium 3 ml 07/11/22 16:00 07/11/22 15:16 Ipratropium-Albuterol 3 Ml Neb INHALATION 3 ml Q4H.RESPIRATORY RAZIA Administration Sodium Chloride 1,000 mls @ 30 mls/hr 07/11/22 07:00 07/11/22 12:00 Sodium Chloride 0.9% IV 07/12/22 06:59 Infused .Q24H RAZIA Infusion Ondansetron HCl 4 mg 07/11/22 06:55 07/11/22 08:33 Ondansetron 2 Mg/Ml Sdv 2 Ml IVP 4 mg Q5M PRN Administration NAUSEA AND VOMITING PFSH Anesthesia Medical History Anxiety Diabetes mellitus GERD (gastroesophageal reflux disease) History of colon polyps Hyperlipidemia Hypothyroidism Surgical History History of back surgery History of colonoscopy (01/26/22) 20 years History of esophagogastroduodenoscopy (01/26/22) History of hysterectomy History of neck surgery Family History Other Cancer Diabetes Hypertension Social History Smoking and tobacco status: current every day smoker Second hand smoke exposure: Yes Alcohol intake: never History of recent travel: No Data Anesthesia 07/11/22 13:27 Short CBC 07/11/22 07/11/22 Range/Units 07:23 13:27 WBC 8.4 21.0 H (4.0-10.0) 10^3/uL Hgb 14.7 9.3 L D (11.5-15.3) g/dL Hct 44.4 29.6 L D (37.0-47.0) % MCV 90.2 95.2 D (81-99) fl Plt Count 319 294 (130-400) 10^3/cmm Neut % (Auto) 53.1 85.0 % Neut # (Auto) 4.43 17.85 H (1.8-7.7) 10^3/uL Blood Bank 07/11/22 07:23 Blood Type A Positive Rho(D) Type Positive Antibody Screen Negative Cardiac Studies: No Data to Display
--- NOTE | 2022-07-11 15:21 | ANE.PACU2 ---
Inpatient post-anesthesia follow up: Airway intact: Yes Vital signs: Temperature 97.8 F Pulse Rate 117 Respiratory Rate 18 Blood Pressure 119/50 Pulse Oximetry 95 Oxygen Delivery Me thod Nasal Cannula Oxygen Flow Rate 4 Fraction of Inspir ed Oxygen Hydration adequate: Yes Nausea and vomiting: No Pain level: 3 Mental status: Altered (sedated) Additional Comments: Slow to wake up, some postop hypotension improved with fluids/albumin and CaCl, H/H ok
[2022-07-11] MEDS: HYDROmorphone 1 mg/mL INJ 1 mL 0.25 MG IVP (15:29)
--- NOTE | 2022-07-11 16:39 | XRR_ITS ---
PROCEDURE INFORMATION: Exam: XR Chest Exam date and time: 07/11/2022 5:45 PM Age: 66 years old Clinical indication: Other: Hypoxia TECHNIQUE: Imaging protocol: Radiologic exam of the chest. Views: 1 view. COMPARISON: CR XR chest 1V portable [id number] 02/25/2021 11:34 AM FINDINGS: Lungs: No consolidation. Pleural spaces: No pleural effusion. No pneumothorax. Heart/Mediastinum: Moderate cardiomegaly. Bones/joints: Visualized osseous structures are intact. XR/XR chest 1V portable [id number] IMPRESSION: Moderate cardiomegaly. Otherwise, no acute findings.
--- NOTE | 2022-07-11 16:44 | PC.NURSE ---
Patient arrived to [facility] floor around 1400, patient blowing bubbles while breathing,thick white colored mucus coming from pts mouth, patient pupils pin point, patient alert to self and time, 72/46 BP, heart rate 115, 90% on 4L, patient able to answer yes/no questions at this time, notified Charge nurse and Dr. El, will transfer to ICU, report called to [place].
--- NOTE | 2022-07-11 17:02 | PC.NURSE ---
Arrived from med surg, staff transferred patient to bed, patient AO but lethargic, BP improved from BP taken on medsur, Dr. Dave at bedside, no further orders at this time
--- NOTE | 2022-07-11 17:20 | P.CONIM_ITS ---
Providers/Reason For Consult Consulting Physician/Specialty*: Hospitalist Reason for Consult*: Pinpoint pupils, lethargic, hypotensive Attending Physician: Harshil El, DO Primary Care Provider: Eugene Bo MD History of Present Illness History of Present Illness Pleasant 66-year-old lady with history of DJD, spinal stenosis, DM, HLD, hypothyroidism underwent lumbar spine laminectomy, partial facetectomy, discectomy, and fusion, I am asked to also see her in consultation due to after arriving to medical surgical floor still lethargic, with pinpoint pupils, blood pressure again low despite receiving fluid boluses, albumin, Dustin-Synephrine in PACU. He also received fentanyl, Dilaudid, Zofran, DuoNeb. On the floor with reported sinus tachycardia 110, blood pressure 72/46 on medical surgical floor. Saturation 91% on 4 L nasal cannula, snoring. Not normally on supplemental oxygen. Procedure otherwise reported unremarkable. EBL 250-300 mL although possibly as high as 1300 mL. Noted change in hemoglobin to 9.3 at 130 this afternoon, morning value 14.7. Hemovac in place, with 150 mL output. She has a Corado. She is afebrile. Leukocytosis 21 most neutrophilic on repeat labs with normal WBC this morning. Review of Systems General: Reports: Other (Limited do due to mental status.) Const: Denies: fever(s) Card: Denies: chest pain Resp: Denies: dyspnea GI: Denies: abdominal pain, nausea or vomiting : Denies: difficulty voiding or dysuria Musc: Reports: back pain Skin/Breast: Denies: rash Neuro: Denies: headache(s) Medications/Allergies Home Medications Medication Instructions Recorded Confirmed Last Taken Type acetaminophen 500 mg tablet 500 - 1,000 mg PO PRN 02/25/21 07/11/22 07/10/22 History (Tylenol Extra Strength) buspirone 15 mg tablet 15 mg PO BID 02/25/21 07/11/22 07/10/22 History gabapentin 300 mg capsule See Rx Instructions .Route .COMPLEX 02/25/21 07/11/22 07/10/22 History omeprazole 20 mg capsule,delayed 20 mg PO BID 02/25/21 07/11/22 07/10/22 History release simvastatin 20 mg tablet 20 mg PO DAILY 02/25/21 07/11/2207/10/22 History turmeric 1 cap PO DAILY 02/25/21 07/11/22 07/10/22 History walker #1 ea 04/05/21 07/05/22 Unknown Rx meloxicam 15 mg tablet 15 mg PO DAILY 05/24/21 07/11/22 07/10/22 History albuterol sulfate 90 mcg/actuation 2 puff inhalation QID PRN 03/02/22 07/11/22 07/10/22 Rx aerosol inhaler Shortness Of Breath #8.5 grams [facility] True Matrix Meter to #1 ea 05/18/22 07/05/22 Unknown Rx use once daily blood sugar diagnostic (True #100 ea 05/19/22 07/05/22 Unknown Rx Metrix Glucose Test Strip) levothyroxine 25 mcg tablet 25 mcg PO DAILY #90 tabs 05/19/22 07/11/22 07/10/22 Rx (Synthroid) blood-glucose meter (True Metrix #1 ea 05/25/22 07/05/22 Unknown Rx Glucose Meter) alprazolam 0.25 mg tablet (Xanax) 0.25 mg PO TID PRN Anxiety #90 tabs 05/29/22 07/11/22 07/10/22 Rx amitriptyline 100 mg tablet See Rx Instructions .Route 05/29/22 07/11/2211/26 Rx .COMPLEX #90 tabs hydrocodone 5 mg-acetaminophen 325 1 - 2 tab PO Q4H PRN pain 5 days 07/05/22 07/11/22 07/10/22 Rx mg tablet #40 tabs Intraoperative Neuromonitoring #1 ea 07/08/22 Unknown Rx Bone Growth Stimulator [id number] #1 ea 07/11/22 Unknown Rx Allergies Allergy/AdvReac Type Severity Reaction Status Date / Time morphine Allergy hives Verified 07/05/22 13:05 naproxen [From Aleve] AdvReac Intermediate gerd Verified 07/05/22 13:05 Current Medications Generic Name Dose Route Start Last Admin Trade Name Freq PRN Reason Stop Dose Admin Albuterol/Ipratropium 3 ml 07/11/22 16:00 07/11/22 15:16 Ipratropium-Albuterol 3 Ml Neb INHALATION 3 ml Q4H.RESPIRATORY RAZIA Administration Docusate Sodium 100 mg 07/11/22 18:00 07/11/22 17:16 Docusate Sodium 100 Mg Capsule PO Not Given BID RAZIA Hydromorphone HCl 0.25 mg 07/11/22 15:23 07/11/22 15:29 Hydromorphone 1 Mg/Ml Inj 1 Ml IVP 0.25 mg Q1H PRN Administration SEVERE PAIN Sodium Chloride 1,000 mls @ 30 mls/hr 07/11/22 07:00 07/11/22 12:00 Sodium Chloride 0.9% IV 07/12/22 06:59 Infused .Q24H RAZIA Infusion Lactated Ringer's 1,000 mls @ 90 mls/hr 07/11/22 13:00 07/11/22 17:09 Lactated Ringers IV Not Given .Q11H7M RAZIA Ondansetron HCl 4 mg 07/11/22 06:55 07/11/22 08:33 Ondansetron 2 Mg/Ml Sdv 2 Ml IVP 4 mg Q5M PRN Administration NAUSEA AND VOMITING PFSH Acute PFSH: Medical History Anxiety Diabetes mellitus GERD (gastroesophageal reflux disease) History of colon polyps Hyperlipidemia Hypothyroidism Surgical History History of back surgery History of colonoscopy (01/26/22) 20 years History of esophagogastroduodenoscopy (01/26/22) History of hysterectomy History of neck surgery Family History Other Cancer Diabetes Hypertension Social History (Updated 07/11/22 @ 17:30 by Rodríguez Ware MD) Smoking and tobacco status: current every day smoker Second hand smoke exposure: Yes Alcohol intake: never Lives independently: Yes Household members: none Marital status: Single History of recent travel: No Vitals/I&O/Wt Last Vital Signs Temp 97.5 F L 07/11/22 15:55 Pulse 117 H 07/11/22 17:00 Resp 17 07/11/22 17:00 BP 112/51 07/11/22 17:00 Pulse Ox 95 07/11/22 17:00 O2 Del Method 07/11/22 16:00 O2 Flow Rate 4 07/11/22 16:00 07/11/22 07/11/22 07/11/22 06:59 14:59 22:59 Intake Total 2900 / 2900 Output Total 1550 / 1550 Balance 1350 / 1350 Physical Exam Const: GENERAL APPEARANCE: cooperative ORIENTATION/CONSCIOUSNESS: Yes awake (She is now awake, a little bit groggy) HENMT: COMMON NORMALS: oropharynx normal Neck/C-Spine: COMMON NORMALS: no JVD Resp: COMMON NORMALS: normal respiratory effort and clear to auscultation bilaterally AUSCULTATION: clear to auscultation bilaterally and diminished lung sounds Cardio: COMMON NORMALS: no JVD, regular rhythm, S1 normal heart sound present, S2 normal heart sound present and No murmurs present (Cardio) RHYTHM: regular rhythm HEART SOUNDS: S1 normal heart sound present and S2 normal heart sound present GI: COMMON NORMALS: Normal to inspection, nondistended, normoactive bowel sounds present, Soft to palpation and non-tender PALPATION: Yes Soft to palpation Back/Pelvis: OTHER: Hemovac drain. Extremity: COMMON NORMALS: no joint enlargement and no pedal edema OTHER: Squeezes hands, moves her toes bilaterally. Neuro: COMMON NORMALS: moves all extremities Skin: COMMON NORMALS: no rashes or lesions noted GENERAL SKIN EXAM: no rashes or lesions noted Urinary Catheter Management: Corado: Cath Placed During This Visit: yes Reason for Continuing Indwelling Catheter: Accurate Measurement of Urinary Output in Critically Ill Patients Urinary Catheter Date of Insertion: 07/11/22 Urinary Catheter Time of Insertion: 09:00 Data 07/11/22 13:27 A&P Assessment and plan (1) Hypotension: Hypotensive on medical floor down to 72/46, requested additional albumin bolus, but now improving on arrival to ICU 112/51. Cancel bolus. Discussed with her now that she is more alert holding further pain medication, hold gabapentin. Reassess blood pressure, monitor in ICU for now. With noted acute anemia as well, hemoglobin down to 9.3, reassess hemoglobin. Additionally assess chemistries for renal and liver parameters. On SCDs for DVT prophylaxis. Pantoprazole GI prophylaxis. Blood pressure continuing to improve. Obtain TTE. (2) Tachycardia: Appreciate persistent cardiac event earlier this morning on arrival to the hospital. Unclear cause of the tachycardia. Appears may have been also having it as far back as May 2022. Check EKG. TSH. D-dimer. Check chemistry, magnesium. (3) Hypoxia: Does have history of COPD, tells me in the past used to be on oxygen for a while, but then weaned off of it. Currently saturation 95% on 4 L nasal cannula. He has received fluid boluses and albumin, somewhat diminished air entry, but unknown heart sounds at baseline. Will obtain chest x-ray. D-dimer. (4) Leukocytosis: Suspect stress related given no leukocytosis this morning. Will check chest x- ray, UA. (5) Status post spinal surgery: Acetaminophen as needed for pain. No stronger opioids, as needed 5 mg hydrocodone every 4 hours as needed. Monitor blood pressures. Hold NSAIDs for now. Assess chemistries. (6) Acute anemia: Repeat hemoglobin. Plan Pinpoint pupils: After opioid. Pupils 4. She is waking up. Denies headache Hypothyroidism: Check TSH. Levothyroxine. DM GERD HLD Anxiety Consult Attestations Medical Necessity Statement: Admission of over 2 midnights anticipated for man agement after hypotension, acute anemia, hypoxia, status post lumbar spinal surgery. Coding Level of Care Code Acute Washer Off for Chg Fwd Diagnoses Hypotension I95.9 Tachycardia R00.0 Hypoxia R09.02 Leukocytosis D72.829 Status post spinal surgery Z98.890 Acute anemia D64.9
[2022-07-11] MEDS: BuSPIRONE 10 mg Tablet 15 MG PO (17:29)
[2022-07-11] MEDS: HYDROcodone-acetaminophen 10-325 mg Tablet PO (17:42)
[2022-07-11 18:23] LABS: Hemoglobin 8.7 g/dL (11.5-15.3)
[2022-07-11 18:35] LABS: Alanine Aminotransferase 22 U/L (0-33); Albumin Level 3.3 g/dL (3.5-5.2); Alkaline Phosphatase 69 U/L (35-105); Anion Gap 14.9 (5-19); Aspartate Amino Transferase 31 U/L (0-32); Blood Urea Nitrogen 17 mg/dL (8-23); Calcium 8.4 mg/dL (8.5-10.5); Carbon Dioxide 20 mmol/L (22-29); Chloride 109 mmol/L (98-107); Globulin 2.5 g/dL (1.3-4.6); Glomerular Filtration Rate 55.1 mL/min (90-130); Glucose 175 mg/dL (65-115); Magnesium 1.8 mg/dL (1.7-2.3); Osmolality Calculated 294 mOsm/kg (285-295); Potassium 4.9 mmol/L (3.5-5.1); Sodium 139 mmol/L (136-145); Thyroid Stimulating Hormone 1.85 uIU/mL (0.27-4.20); Total Bilirubin 0.2 mg/dL (0.15-1.2); Total Protein 5.8 g/dL (6.6-8.7)
[2022-07-11] MEDS: pantoprazole DR 40 mg Tablet PO (20:23)
[2022-07-11] MEDS: HYDROcodone-acetaminophen 10-325 mg Tablet 0.5 TAB PO (20:44)
[2022-07-11 20:49] LABS: Glucose Point of Care 182 mg/dL (70-110)
[2022-07-11] MEDS: insulin lispro 100 unit/1 mL SUBCUT (21:04)
[2022-07-11] MEDS: amitriptyline 25 mg Tablet 100 MG PO (21:04)
[2022-07-11] MEDS: acetaminophen 325 mg Tablet 650 MG PO (22:54)
[2022-07-12] VITALS (48 sets, daily range): BP systolic 93–149; BP diastolic 46–91; PULSE 103–121; RESP 13–31; TEMP 36.7–37.2; O2SAT 83–99
[2022-07-12] MEDS: HYDROcodone-acetaminophen 10-325 mg Tablet 0.5 TAB PO ×3 (00:59→11:12)
[2022-07-12] MEDS: ceFAZolin 2,000 MG in sodium chloride 0.9% (plus) 50 ML 100 MG IV ×2 (01:00→09:17)
[2022-07-12] MEDS: acetaminophen 325 mg Tablet 650 MG PO (03:11)
[2022-07-12 03:26] LABS: Basophils % 0.1 %; Hematocrit 25.5 % (37.0-47.0); Hemoglobin 7.8 g/dL (11.5-15.3); Lymphocytes # 2.1 10^3/uL (0.8-4.8); Lymphocytes % 14.7 %; Mean Corpuscular HGB Conc 30.6 g/dL (30.0-36.0); Mean Corpuscular Volume 98.1 fl (81-99); Monocytes % 7.1 %; Neutrophils % 77.5 %; Nucleated Red Blood Cells % 0 %; Platelet Count 205 10^3/cmm (130-400); White Blood Count 14.3 10^3/uL (4.0-10.0)
[2022-07-12 03:53] LABS: Alanine Aminotransferase 24 U/L (0-33); Albumin Level 3.3 g/dL (3.5-5.2); Alkaline Phosphatase 61 U/L (35-105); Blood Urea Nitrogen 16 mg/dL (8-23); Calcium 8.2 mg/dL (8.5-10.5); Carbon Dioxide 22 mmol/L (22-29); Chloride 102 mmol/L (98-107); Globulin 2.3 g/dL (1.3-4.6); Glomerular Filtration Rate 71.3 mL/min (90-130); Glucose 108 mg/dL (65-115); Osmolality Calculated 282 mOsm/kg (285-295); Sodium 135 mmol/L (136-145); Total Bilirubin 0.2 mg/dL (0.15-1.2); Total Protein 5.6 g/dL (6.6-8.7)
[2022-07-12 03:54] LABS: Anion Gap 15.4 (5-19); Aspartate Amino Transferase 43 U/L (0-32); Potassium 4.4 mmol/L (3.5-5.1)
[2022-07-12] MEDS: ipratropium-albuterol 3 mL Neb INHALATION ×4 (03:59→23:28)
[2022-07-12 05:31] LABS: Add Urine Microscopic? NO; Charge for UA Resulting for Rev
[2022-07-12 05:49] LABS: Bilirubin Urine Neg (Negative); Blood Urine Neg (Negative); Glucose Urine UA Norm (Normal); Ketones Urine Negative (Negative); Nitrate Urine Negative (Negative); Protein Urine Neg (Negative); Specific Gravity, Urine 1.015 (1.005-1.030); Urine Appearance Clear (CLEAR); Urine Color Colorless (Yellow); pH Urine 5 (5-7)
[2022-07-12 05:50] LABS: Leukocyte Esterase Urine Negative (Negative); Urobilinogen Urine Norm (Negative)
--- NOTE | 2022-07-12 07:09 | PM.PN ---
Subjective Subjective: POD 1 Patient appears comfortable but mildly confused. No apparent distress. Vitals/I&O/Wt Last Vital Signs Temp 97.5 F L 07/11/22 15:55 Pulse 113 H 07/12/22 03:59 Resp 18 07/12/22 03:59 BP 115/55 07/12/22 02:45 Pulse Ox 94 07/12/22 03:59 O2 Del Method 07/12/22 03:59 O2 Flow Rate 2 07/12/22 03:59 07/11/22 07/12/22 07/12/22 22:59 06:59 14:59 Intake Total 350 / 3250 Output Total 1375 / 2925 Balance 350 / 1700 -1375 / 325 Physical Exam Narrative: She is alert but confused. No obvious distress. Cooperates moves both lower extremities both upper extremities. Wiggles toes feet are warm good cap refill calves are supple can negative logroll bilaterally can flex and extend both knees. Dorsiflex and plantarflex both ankles. Hemovac drain intact. Incision appears clean and dry. Urinary Catheter Management: Corado: Cath Placed During This Visit: yes Reason for Continuing Indwelling Catheter: Accurate Measurement of Urinary Output in Critically Ill Patients Urinary Catheter Date of Insertion: 07/11/22 Urinary Catheter Time of Insertion: 09:00 Data 07/12/22 02:31 07/12/22 02:31 A&P Assessment and plan (1) Acute anemia: Patient is mildly confused tachycardic with acute blood loss anemia due to her being mildly symptomatic leave it at the hospitalist discretion as to transfuse 1 unit of packed red blood cells. Leave the Hemovac drain and take the suction off leave to gravity. Encourage physical therapy to evaluate and begin mobilization. Would recommend titrating from hydrocodone to tramadol 50 mg 1 tablet every 4-6 hours as needed for pain due to her level of confusion. Encourage incentive spirometry for pulmonary toilet. Discontinue Corado catheter when she becomes more alert. Okay from orthopedic standpoint to transfer her back to the floor once stable and cleared by the hospitalist team. (2) Status post lumbar spinal fusion: Attestations Medical Necessity Statement*: marketing services manager to consult for placement will determine discharge when more alert and more stable. Coding Level of Care Code Acute Registered Nurse Teacher for [employer] Diagnoses Acute anemia D64.9 Status post lumbar spinal fusion Z98.1
--- NOTE | 2022-07-12 07:59 | PC.PHAR ---
pt states she takes care of her own medications-pt states she takes the medications entered pt states she uses [facility] order
[2022-07-12] MEDS: BuSPIRONE 10 mg Tablet 15 MG PO ×2 (09:15→17:49)
[2022-07-12] MEDS: atorvastatin 40 mg Tablet 20 MG PO (09:15)
[2022-07-12] MEDS: gabapentin 300 mg Capsule 600 MG PO (09:16)
[2022-07-12] MEDS: docusate sodium 100 mg Capsule PO ×2 (09:16→17:50)
[2022-07-12] MEDS: pantoprazole DR 40 mg Tablet PO (09:16)
[2022-07-12] MEDS: TRAMadol 50 mg Tablet PO (09:16)
[2022-07-12] MEDS: levothyroxine 25 mcg Tablet PO (09:16)
[2022-07-12] MEDS: lanolin oint 7 gm 1 APPLIC TOPICAL (09:30)
[2022-07-12] MEDS: ALPRAZolam 0.5 mg Tablet 0.25 MG PO (09:49)
[2022-07-12] MEDS: ondansetron 2 mg/ML SDV 2 mL 4 MG IVP (13:00)
--- NOTE | 2022-07-12 13:00 | PM.PN ---
Subjective Subjective: Today she is feeling slightly better. She states that her mouth is dry. She otherwise has been feeling very anxious. She states that she takes Xanax at home 3 times daily. Discussed with her persistent sinus tachycardia, hypoxia, abnormal D-dimer. Discussed additional evaluation by CT including risks of EVARISTO. She reports she is having back pain, back muscle spasm. Vitals/I&O/Wt Last Vital Signs Temp 97.5 F L 07/11/22 15:55 Pulse 118 H 07/12/22 12:06 Resp 18 07/12/22 12:06 BP 143/69 07/12/22 07:00 Pulse Ox 98 07/12/22 12:06 O2 Del Method 07/12/22 12:06 O2 Flow Rate 2 07/12/22 08:00 07/11/22 07/12/22 07/12/22 22:59 06:59 14:59 Intake Total 350 / 3250 50 / 3300 Output Total 1375 / 2925 Balance 350 / 1700 -1325 / 375 Physical Exam Const: COMMON NORMALS: patient oriented x3 and alert GENERAL APPEARANCE: cooperative ORIENTATION/CONSCIOUSNESS: Yes awake HENMT: OTHER: Edentulous. Dry MM. Neck/C-Spine: COMMON NORMALS: no JVD Resp: COMMON NORMALS: normal respiratory effort and clear to auscultation bilaterally AUSCULTATION: clear to auscultation bilaterally Cardio: COMMON NORMALS: no JVD, regular rhythm, S1 normal heart sound present, S2 normal heart sound present and No murmurs present (Cardio) RATE: tachycardic RHYTHM: regular rhythm HEART SOUNDS: S1 normal heart sound present and S2 normal heart sound present GI: COMMON NORMALS: Normal to inspection, nondistended, normoactive bowel sounds present, Soft to palpation and non-tender PALPATION: Yes Soft to palpation Back/Pelvis: OTHER: Hemovac drain. Extremity: COMMON NORMALS: no joint enlargement and no pedal edema Neuro: COMMON NORMALS: patient oriented x3 and moves all extremities SENSORIUM/ORIENTATION: Yes alert Skin: COMMON NORMALS: no rashes or lesions noted GENERAL SKIN EXAM: no rashes or lesions noted Urinary Catheter Management: Corado: Cath Placed During This Visit: yes Reason for Continuing Indwelling Catheter: Accurate Measurement of Urinary Output in Critically Ill Patients Urinary Catheter Date of Insertion: 07/11/22 Urinary Catheter Time of Insertion: 09:00 Data 07/12/22 02:31 07/12/22 02:31 A&P Assessment and plan (1) Tachycardia: Abnormal D-dimer, persistent tachycardia, requiring 2 L of oxygen, discussed with her assessment CT angiogram chest. Appreciate persistent cardiac event earlier this morning on arrival to the hospital. Unclear cause of the tachycardia. Appears may have been also having it as far back as May 2022. Check EKG. TSH. D-dimer. Check chemistry, magnesium. (2) Acute anemia: Hemoglobin was further decreased down to 7.8. Repeat additional hemoglobin. Not on anticoagulant. SCD. Hemoccult, iron studies. (3) Hypoxia: She states was not formally diagnosed with COPD. He is a current smoker. He did require oxygen in the past. D-dimer abnormal compressible sinus tachycardia. Assess CT angiogram chest. He has received fluid boluses and albumin, somewhat diminished air entry, but unknown heart sounds at baseline. X-ray with moderate cardiomegaly. Otherwise nonacute. TTE (4) Leukocytosis: Suspect stress related given no leukocytosis this morning. No focal pneumonia. No suggestion of UTI. (5) Status post spinal surgery: Acetaminophen as needed for pain. No stronger opioids, as needed 5 mg hydrocodone every 4 hours as needed. Monitor blood pressures. Hold NSAIDs for now. Assess chemistries. (6) Hypotension: Resolved. On SCDs for DVT prophylaxis. Pantoprazole GI prophylaxis. Blood pressure continuing to improve. Obtain TTE. Plan Pinpoint pupils: After opioid. Hypothyroidism: Check TSH. Levothyroxine. DM GERD HLD Anxiety Attestations Medical Necessity Statement*: Continue admission for further assessment of sinus tachycardia, hypoxia, acute anemia, status post spine surgery. Coding Level of Care Code Acute Railroad Police Officer for Chg Fwd Diagnoses Tachycardia R00.0 Acute anemia D64.9 Hypoxia R09.02 Leukocytosis D72.829 Status post spinal surgery Z98.890 Hypotension I95.9
--- NOTE | 2022-07-12 13:47 | ECG_ITS ---
[facility] Test Date: 2022-07-12 Pat Name: Sandra Ramírez Department: Room: ICU11 Gender: Female Product Trainer: : 1955 Requested By: Rodríguez Ware Order Number: [id number] Reading MD: Varsha Archer M.D. Measurements Intervals [place] Rate: 112 P: 65 MT: 140 QRS: 57 QRSD: 87 T: 70 QT: 332 QTc: 454 Interpretive Statements SINUS TACHYCARDIA NONSPECIFIC ST & T-WAVE ABNORMALITY ABNORMAL RHYTHM ECG Compared to ECG 05/24/2021 13:06:12 No significant changes Electronically Signed On 07-12-2022 18:51:59 TAILINGS WORKER by Varsha Archer M.D. [id number]
[2022-07-12 14:01] LABS: Hemoglobin 7.3 g/dL (11.5-15.3)
[2022-07-12 14:20] LABS: Ferritin 92 ng/mL (15-150); Iron 24 ug/dL (37-145)
[2022-07-12 14:52] LABS: Percent Saturation 9.6 % (20-50); Total Iron Binding Capacity 249 mcg/dl; Unsaturated Iron Binding 225 ug/dL (112-347)
[2022-07-12] MEDS: lidocaine 5% Patch 1 PATCH TOPICAL (14:58)
[2022-07-12] MEDS: sodium chloride 0.9% 250 ML 10 ML IV (16:18)
[2022-07-12 17:23] LABS: Glucose Point of Care 123 mg/dL (70-110)
--- NOTE | 2022-07-12 18:08 | USCV_ITS ---
Sandra Ramírez Age: 66 Gender: F : 1955 Exam Date: 07/12/2022 14:07 Ordering Phys: Rodríguez Ware MD Technologist: [place] Exam Location: [facility] [place] Indication: HYPOTENSION, HYPOXIA, CARDIOMEGALY BP: 120 / 50 HR: 111 Rhythm: Atrial fibrillation Technical Quality: Suboptimal MEASUREMENTS (Male / Female) Normal Values 2D ECHO LVOT Diameter 2.0 cm LV Ejection Fraction MOD 2C 66.0 % LV Ejection Fraction 2C AL 66.5 % LA Diameter 3.4 cm LA Width 2.4 cm LA Height 4.2 cm RA Width 2.7 cm RA Height 3.6 cm Aorta at Sinotubular Diameter 2.3 cm M-MODE Aortic Annulus Diameter 2.4 cm LA Ao Ratio MM 1.3 MV E Point Septal Separation 0.4 cm DOPPLER AV Peak Velocity 238.0 cm/s LVOT Peak Velocity 106.0 cm/s AV Area Cont Eq vti 1.5 cm squared AV Area Cont Eq pk 1.4 cm squared MV Peak Velocity 258.0 cm/s MV Area PHT 5.3 cm squared MV E' Velocity 133.6 cm/s Mitral E to MV E' Ratio 14.5 Mitral E to LV E' Lateral Ratio 16.5 Mitral E to LV E' Septal Ratio 13.1 TV Peak E Velocity 96.0 cm/s Right Atrial Pressure 8.0 mmHg PV Peak Velocity 123.0 cm/s RV Acceleration Time 0.1 s RV Ejection Time 0.3 s RV AcT/ET 0.4 FINDINGS Left Ventricle The examination is technically poor due to the inability to adequately position the patient. The left ventricle is probably normal in size and function. Normal ejection fraction. Grade 1 diastolic dysfunction. Right Ventricle Normal right ventricular size and systolic function. Right ventricular systolic pressure cannot be calculated. Right Atrium Right atrium not well visualized. Left Atrium Left atrium not well visualized. Mitral Valve Mitral valve not well visualized. Trace mitral valve regurgitation. Aortic Valve Aortic valve not well visualized. Tricuspid Valve Tricuspid valve not well visualized. Trace tricuspid valve regurgitation. Pulmonic Valve Pulmonic valve not well visualized. Pericardium Normal pericardium without effusion. Aorta Aorta not well visualized. IVC Inferior vena cava not visualized. CONCLUSIONS The examination is technically poor due to the inability to adequately position the patient. The left ventricle is probably normal in size and function. Normal ejection fraction. Grade 1 diastolic dysfunction. Mitral valve not well visualized. Trace mitral valve regurgitation. There are no prior echocardiogram studies to compare. Dr. Balaji Johnson MD (Electronically Signed) Final Date: 12 July 2022 16:10 S
--- NOTE | 2022-07-12 19:04 | PC.NURSE ---
REport called REport called to Nazario on second floor. Pt will move to 275 by shift nurse manager staff.
[2022-07-12] MEDS: gabapentin 300 mg Capsule 900 MG PO (20:35)
[2022-07-12 20:36] LABS: Glucose Point of Care 131 mg/dL (70-110)
[2022-07-12] MEDS: amitriptyline 25 mg Tablet 100 MG PO (20:36)
[2022-07-13] VITALS (15 sets, daily range): BP systolic 77–159; BP diastolic 48–70; PULSE 95–126; RESP 14–22; TEMP 36.6–36.9; O2SAT 83–98
[2022-07-13 02:01] LABS: Basophils % 0.3 %; Eosinophils % 0.3 %; Hematocrit 26.6 % (37.0-47.0); Hemoglobin 8.6 g/dL (11.5-15.3); Lymphocytes # 4.2 10^3/uL (0.8-4.8); Lymphocytes % 27.9 %; Mean Corpuscular HGB Conc 32.3 g/dL (30.0-36.0); Mean Corpuscular Hemoglobin 30.2 pg (28.0-34.0); Mean Corpuscular Volume 93.3 fl (81-99); Mean Platelet Volume 11.5 fL (7.4-10.4); Monocytes % 6.4 %; Neutrophils # 9.76 10^3/uL (1.8-7.7); Neutrophils % 64.6 %; Nucleated Red Blood Cells % 0 %; Platelet Count 159 10^3/cmm (130-400); Red Blood Count 2.85 10^6/uL (4.1-5.3); Red Cell Distribution Width 14.2 % (12.1-15.1); White Blood Count 15.1 10^3/uL (4.0-10.0)
[2022-07-13 02:30] LABS: Alanine Aminotransferase 21 U/L (0-33); Albumin Level 3.1 g/dL (3.5-5.2); Alkaline Phosphatase 63 U/L (35-105); Aspartate Amino Transferase 44 U/L (0-32); Blood Urea Nitrogen 10 mg/dL (8-23); Calcium 8.4 mg/dL (8.5-10.5); Carbon Dioxide 26 mmol/L (22-29); Chloride 106 mmol/L (98-107); Globulin 2.7 g/dL (1.3-4.6); Glomerular Filtration Rate 83.2 mL/min (90-130); Glucose 103 mg/dL (65-115); Osmolality Calculated 287 mOsm/kg (285-295); Sodium 139 mmol/L (136-145); Total Bilirubin 0.7 mg/dL (0.15-1.2); Total Protein 5.8 g/dL (6.6-8.7)
[2022-07-13] MEDS: ipratropium-albuterol 3 mL Neb INHALATION ×4 (03:55→15:06)
--- NOTE | 2022-07-13 05:19 | PC.NURSE ---
Addendum entered by Nazario Melendrez RN 07/13/22 05:31: ordered an ABG upon calling him and notifying him of the patient's change in condition. Original Note: Patient is hallucinating at this time, seeing things in the room that are not there. Patient is alert and knows where they are, their name and why they are in the hospital. Patient seems very restless. She obeys all commands on neuro check, pupils are brisk and reactive. Some ataxia noted with finger to nose test. This nurse will notify the
[2022-07-13 06:15] LABS: ABG PCO2 42.5 mmHg (35-45); ABG PH Result 7.43 (7.35-7.45); Alveolar-Arterial Oxygen Gradi 4.9 mmHg (5-10); Arterial Blood Gas Hematocrit 27.3 % (37-47); Base Excess ABG 3.1 mmol/L (-2.0-2.0); Blood Gas Allen Test Pos; Blood Gas LPM 3.5 %; Blood Gas Operator Identificat WALCI; Blood Gas Sample Site Radial, right; Blood Gas Sample Type Arterial; Carboxyhemoglobin 1.7 %THgb (0.4-20.1); HCO3 ABG 27.8 mmol/L (22-26); HGB O2 Sat 89.8 % (95-100); Ionized Calcium Level - ABG 1.2 mmol/L (1.1-1.4); Methemoglobin 1.1 % (0.4-1.5); Oxygen Device NC; Oxygen Saturation ABG 92.4; PO2 ABG 60.1 mmHg (80.0-100.0); Potassium Level - ABG 3.9 mmol/L (3.5-5.0); Total Hemoglobin 8.9 g/dL (12-16)
--- NOTE | 2022-07-13 06:38 | PM.PN ---
Subjective Subjective: POD 2 Patient is more alert today no apparent distress. Leg pain has resolved. Mild shortness of breath with oxygen via nasal cannula. Patient does live alone but is requesting to go home today. Vitals/I&O/Wt Last Vital Signs Temp 97.8 F 07/13/22 04:51 Pulse 126 H 07/13/22 04:51 Resp 20 H 07/13/22 04:51 BP 147/65 07/13/22 04:51 Pulse Ox 98 07/13/22 05:40 O2 Del Method 07/13/22 03:55 O2 Flow Rate 3.5 07/13/22 05:40 07/12/22 07/12/22 07/13/22 14:59 22:59 06:59 Intake Total 850 / 850 1152 / 2002 Output Total 225 / 225 1225 / 1450 1120 / 2570 Balance 625 / 625 -73 / 552 -1120 / -568 Physical Exam Narrative: Patient presents alert and oriented x3 with a good general appearance normal mood and affect. Normal coordination normal stability. Mild tenderness around the incisional site with the incision appear to some mild drainage with Hemovac intact. No signs of erythema or drainage. No signs of infection. Patient denies any fevers or chills. 5/5 motor strength both lower extremities with negative straight leg raise bilaterally. Calves are supple no medial thigh tenderness. Pulses are 2+ at the dorsalis pedis and posterior tibial region. Good capillary refill throughout normal sensation light touch both lower extremities. Urinary Catheter Management: Corado: Cath Placed During This Visit: yes Reason for Continuing Indwelling Catheter: Other Urinary Catheter Date of Insertion: 07/11/22 Urinary Catheter Time of Insertion: 09:00 Data 07/13/22 01:31 07/13/22 01:31 A&P Assessment and plan (1) Status post lumbar spinal fusion: Encouraged patient to use incentive spirometry for pulmonary toilet. Physical therapy to continue with mobilization. Patient does live alone but has family members and aids to follow her. Encouraged her to continue mobilization with a walker no bending lifting or twisting. We will discontinue Hemovac drain and DC Corado catheter. Discussed with the nurse for laxative choice to help with bowel movement. Will defer to medical team for possible discharge home later today or tomorrow. (2) Acute anemia: Attestations Medical Necessity Statement*: Defer to medical team Coding Level of Care Code Established Pt Acute Customer Care Assistant for Chg Fwd Patient Type Established Diagnoses Status post lumbar spinal fusion Z98.1 Acute anemia D64.9
--- NOTE | 2022-07-13 06:41 | PC.NURSE ---
Upon rounding, Cesar ordered hernandez to be removed and to d/c the hemavac and change dressing to island dressing.
[2022-07-13 06:42] LABS: Glucose Point of Care 117 mg/dL (70-110)
[2022-07-13] MEDS: gabapentin 300 mg Capsule 600 MG PO (07:23)
[2022-07-13] MEDS: HYDROcodone-acetaminophen 10-325 mg Tablet 0.5 TAB PO ×2 (07:24→16:47)
[2022-07-13] MEDS: pantoprazole DR 40 mg Tablet PO (07:24)
[2022-07-13] MEDS: atorvastatin 40 mg Tablet 20 MG PO (07:24)
[2022-07-13] MEDS: BuSPIRONE 10 mg Tablet 15 MG PO ×2 (07:24→16:48)
[2022-07-13] MEDS: levothyroxine 25 mcg Tablet PO (07:24)
[2022-07-13] MEDS: lidocaine 5% Patch 1 PATCH TOPICAL (07:25)
[2022-07-13] MEDS: docusate sodium 100 mg Capsule PO ×2 (07:25→16:48)
--- NOTE | 2022-07-13 08:51 | PC.CHAP ---
Pastoral Care Encounter/Spiritual Assessment Type of Contact [] Declined slasher tender visit [] Patient/Family/Request visit [] Outpatient visit [] Follow-up visit [] Physician referral [] Code/Alert [x] Routine visit [] Staff referral [] Actively dying [] Patient sleeping [] Family support [] [] Out of room [] Palliative care [] [] Receiving care in room [] Pre-surgical visit [] Trauma [] Long length of stay [] ICU visit [] Other: Relational/Emotional Strength [x] Patient feels connected with others/family/visitors/staff [] Distress [] Loneliness/isolation [] Abandonment Spirituality of Patient [x] Person of Marilin [] Attends Anabaptism of their Marilin [] Believes in Prayer [] Reads Bible or Latter Day materials [] There are Spiritual issues to be addressed Nut Roaster Helper Interventions [] Prayer [x] Active listening [x] Non-anxious presence [x] Spiritual/emotional support [] Crisis/trauma care [] Spiritual counseling [] Bereavement support [] Provided bereavement packet [] Provided Bible/devotional materials [] Provided toy/stuffed animal, coloring book to patient or family member [] Provided Communion [] Anointing/[place] [] Salvation [x] Completed spiritual assessment [] Other: Impact on Illness or Injury [] Angry [] Fearful [] Anxious [] Often cries [] Exhaustion [] Unable to work [] Unable to attend anglican [] Unable to walk/stand [] Unable to read [] Unable to drive [] Unable to eat/drink [] Unable to sleep [] Unable to be with family [] Patient intubated [] Other: Summary Pt has daughter, neighbor and other family who has been checking in on her. Hoping to go home today. Time spent with patient 10m
--- NOTE | 2022-07-13 08:56 | CT_ITS ---
WS: [id number] CT CHEST ANGIOGRAPHY WITH REFORMATS HISTORY: Assess for PE TECHNIQUE: Contiguous axial images are obtained through the chest during arterial injection of intrav enous contrast. Images are reconstructed to evaluate the pulmonary arteries. MIP imaging also reviewe d. All CT scans at [facility] use at least one of these dose optimization techniques: automat ed exposure control; mA and/or kV adjustment per patient size (includes targeted exams where dose is matched to clinical indication); or iterative reconstruction. CONTRAST: Omnipaque 350; 100 mL IV. DLP: 367.58 mGy.cm COMPARISON: 02/25/2021 Adequate but limited opacification of the pulmonary arteries. There is breathing motion artifact. No large occlusive filling defects are noted centrally. Opacification appears appropriate into the segme ntal and some of the subsegmental branches. No evidence for significant pulmonary embolism. Mild athe rosclerosis aorta. Normal size aorta. Normal size pulmonary artery. Heart is mildly enlarged. No medi astinal or hilar adenopathy. There is mild diffuse esophageal wall thickening and a small hiatal hernia. Lung volumes are decreased due to poor inspiration and breathing. Hazy opacifications and mosaic atte nuation. Dependent changes at the lung bases. No mass or pneumonia. Hepatic steatosis. Visualized gallbladder is limited by breathing artifact. No adrenal mass. Moderate distention of the stomach with food products. Mild thoracic spondylitic changes. No destructive bone lesions. CT/CT angio chest PE protcl [id number] IMPRESSION: 1. Examination is limited by breathing motion artifact. 2. No pulmonary embolism is identified. Very small peripheral pulmonary emboli cannot be completely excluded but there is no large occlusive central filling defects. 3. Atherosclerosis aorta. 4. Mild dependent changes of atelectasis at the lung bases. Next line no peric ardial or pleural effusion. No pneumonia.
--- NOTE | 2022-07-13 08:59 | PC.NURSE ---
NEW SILVERLON DRESSING PLACED AND HEMOVAC PULLED.
[2022-07-13] MEDS: iohexol 350 mg/mL 500 mL Btl (per mL) IV (10:02)
[2022-07-13 11:45] LABS: Glucose Point of Care 145 mg/dL (70-110)
[2022-07-13] MEDS: insulin lispro 100 unit/1 mL SUBCUT (11:52)
[2022-07-13 16:29] LABS: Glucose Point of Care 104 mg/dL (70-110)
[2022-07-13] MEDS: baclofen 10 mg Tablet PO (17:52)
[2022-07-13] MEDS: lanolin oint 7 gm 1 APPLIC TOPICAL (18:16)
[2022-07-13] MEDS: ALPRAZolam 0.5 mg Tablet 0.25 MG PO (18:16)
[2022-07-13] MEDS: gabapentin 300 mg Capsule 900 MG PO (20:03)
[2022-07-13] MEDS: amitriptyline 25 mg Tablet 100 MG PO (20:04)
[2022-07-13] MEDS: TRAMadol 50 mg Tablet PO (20:08)
--- NOTE | 2022-07-13 20:49 | P.PN_ITS ---
Subjective Subjective: This morning she states she is feeling better. Denies pain or discomfort. Denies lightheadedness or dizziness. Blood pressure noted low this morning, however, on measurement in the left arm noted very low, MAP 57. However, cuff size is large, and on measurement in her legs blood pressure is ac tually better. She reports history of injury to the left arm. Blood pressure in right arm not attempted as she is lost multiple IVs, and had an IV in the right upper arm. She denies chest pain or pressure. Vitals/I&O/Wt Last Vital Signs Temp 98.5 F 07/13/22 19:54 Pulse 116 H 07/13/22 19:54 Resp 14 07/13/22 19:54 BP 115/61 07/13/22 19:54 Pulse Ox 96 07/13/22 19:54 O2 Del Method 07/13/22 19:54 O2 Flow Rate 3 07/13/22 15:06 07/13/22 07/13/22 07/13/22 06:59 14:59 22:59 Intake Total 598 / 598 250 / 848 Output Total 1120 / 2570 550 / 550 500 / 1050 Balance -1120 / -568 48 / 48 -250 / -202 Physical Exam Const: COMMON NORMALS: patient oriented x3 and alert GENERAL APPEARANCE: cooperative ORIENTATION/CONSCIOUSNESS: Yes awake HENMT: COMMON NORMALS: oropharynx normal OTHER: Edentulous. Neck/C-Spine: COMMON NORMALS: no JVD Resp: COMMON NORMALS: normal respiratory effort and clear to auscultation bilaterally AUSCULTATION: clear to auscultation bilaterally and diminished lung sounds Cardio: COMMON NORMALS: no JVD, regular rhythm, S1 normal heart sound present, S2 normal heart sound present and No murmurs present (Cardio) RATE: tachycardic RHYTHM: regular rhythm HEART SOUNDS: S1 normal heart sound pr esent and S2 normal heart sound present GI: COMMON NORMALS: Normal to inspection, nondistended, normoactive bowel sounds present, Soft to palpation and non-tender PALPATION: Yes Soft to palpation Back/Pelvis: OTHER: Hemovac drain removed. Extremity: COMMON NORMALS: no joint enlargement and no pedal edema OTHER: Moves all extremities. Neuro: COMMON NORMALS: patient oriented x3 and moves all extremities SENSORIUM/ORIENTATION: Yes alert Skin: COMMON NORMALS: no rashes or lesions noted GENERAL SKIN EXAM: no rashes or lesions noted Urinary Catheter Management: Corado: Cath Placed During This Visit: yes, but has since been removed by the nurse Reason for Continuing Indwelling Catheter: Decision to DC Catheter Urinary Catheter Date of Insertion: 07/11/22 Urinary Catheter Time of Insertion: 09:00 Date Urinary Catheter Removed: 07/13/22 Time Urinary Catheter Discontinued: 08:30 Data 07/13/22 01:31 07/13/22 01:31 A&P Assessment and plan (1) Tachycardia: Abnormal D-dimer, persistent tachycardia, requiring 2 L of oxygen, discussed with her assessment CT angiogram chest. Unclear cause of tachycardia. On CTA very small peripheral emboli cannot be completely excluded but no large central filling defects. Appreciate persistent cardiac event earlier this morning on arrival to the hospital. Unclear cause of the tachycardia. Appears may have been also having it as far back as May 2022. Will give 1 g magnesium. TSH normal. (2) Acute anemia: Responded to RBC transfusion. Not on anticoagulant. SCD. Hemoccult, Iron studies suggestive of iron deficiency anemia. Will need iron replacement, follow-up for additional work-up of iron deficiency anemia including endoscopy. (3) Hypoxia: Improving. May be secondary to fluid overload after resuscitation made worse by emphysema. She states was not formally diagnosed with COPD. He is a current smoker. SHe did require oxygen in the past. D-dimer abnormal compressible sinus tachycardia. No obvious large PE on CT angiogram chest. He has received fluid boluses and albumin, somewhat diminished air entry, but unknown heart sounds at baseline. X-ray with moderate cardiomegaly. Otherwise nonacute. TTE poor quality, Left ventricle possibly normal size and function. Grade 1 diastolic dysfunction. (4) Leukocytosis: Suspect stress related given no leukocytosis No focal pneumonia. No suggestion of UTI. (5) Status post spinal surgery: Acetaminophen as needed for pain. No stronger opioids, as needed 5 mg hydrocodone every 4 hours as needed. Monitor blood pressures. (6) Hypotension: Appears blood pressure also not accurate in the left arm. Prior left arm injury. IV in right arm. Blood pressures requested to be measured in her legs. On SCDs for DVT prophylaxis. Pantoprazole GI prophylaxis. Blood pressure continuing to improve. Obtain TTE. Plan Pinpoint pupils: After opioid. Resolved. Hypothyroidism: Normal TSH. Levothyroxine. DM GERD HLD Anxiety Attestations Medical Necessity Statement*: Continue admission for reassessment of sinus tachycardia, acute anemia, hypoxia, hypotension following spinal surgery. Coding Level of Care Code Acute Platen Drier Operator for Chg Fwd Diagnoses Tachycardia R00.0 Acute anemia D64.9 Hypoxia R09.02 Leukocytosis D72.829 Status post spinal surgery Z98.890 Hypotension I95.9
--- NOTE | 2022-07-13 20:51 | USCV_ITS ---
Sandra Ramírez Age: 66 Gender: F : 1955 Exam Date: 07/13/2022 21:08 Ordering Phys: Rodríguez Ware MD Technologist: DEBBIE Exam Location: [facility] [place] Indication: chronic BLE pain for years No history of DVT per patient. HISTORY: chronic BLE pain for years No history of DVT per patient. PROCEDURES: Venous duplex imaging was performed in bilateral lower extremities. The following venous structures were evaluated: common femoral vein, profunda vein, proximal portion of the greater saphenous vein, superficial femoral vein, and the popliteal vein. In addition, the posterior tibial and peroneal veins were evaluated. FINDINGS: Normal 2-D Doppler and augmentation and compressibility throughout the lower extremity venous structures. Additional imaging through the proximal calf veins also reveals no thrombus. Limited evaluation of the greater saphenous vein is patent with no thrombus. CONCLUSIONS No DVT bilateral lower extremities. Dr. Glory De Luna DO (Electronically Signed) Final Date: 14 July 2022 07:38 S
[2022-07-13 21:00] LABS: Glucose Point of Care 139 mg/dL (70-110)
[2022-07-14] VITALS (11 sets, daily range): BP systolic 99–162; BP diastolic 60–78; PULSE 92–113; RESP 12–18; TEMP 36.6–36.9; O2SAT 87–98
[2022-07-14] MEDS: ipratropium-albuterol 3 mL Neb INHALATION ×4 (01:10→12:23)
[2022-07-14 02:14] LABS: Basophils % 0.3 %; Eosinophils # 0.1 10^3/uL (0.0-0.8); Eosinophils % 0.9 %; Hematocrit 25.1 % (37.0-47.0); Hemoglobin 8.2 g/dL (11.5-15.3); Lymphocytes # 2.9 10^3/uL (0.8-4.8); Lymphocytes % 22.6 %; Mean Corpuscular HGB Conc 32.7 g/dL (30.0-36.0); Mean Corpuscular Hemoglobin 29.8 pg (28.0-34.0); Mean Corpuscular Volume 91.3 fl (81-99); Mean Platelet Volume 11.4 fL (7.4-10.4); Monocytes % 7.7 %; Neutrophils # 8.71 10^3/uL (1.8-7.7); Nucleated Red Blood Cells % 0 %; Platelet Count 186 10^3/cmm (130-400); Red Blood Count 2.75 10^6/uL (4.1-5.3); Red Cell Distribution Width 13.7 % (12.1-15.1); White Blood Count 12.8 10^3/uL (4.0-10.0)
[2022-07-14 02:37] LABS: Alanine Aminotransferase 19 U/L (0-33); Albumin Level 3.2 g/dL (3.5-5.2); Alkaline Phosphatase 66 U/L (35-105); Aspartate Amino Transferase 38 U/L (0-32); Blood Urea Nitrogen 9 mg/dL (8-23); Calcium 8.3 mg/dL (8.5-10.5); Carbon Dioxide 30 mmol/L (22-29); Chloride 103 mmol/L (98-107); Globulin 2.8 g/dL (1.3-4.6); Glomerular Filtration Rate 99.4 mL/min (90-130); Glucose 114 mg/dL (65-115); Magnesium 2.3 mg/dL (1.7-2.3); Osmolality Calculated 288 mOsm/kg (285-295); Sodium 139 mmol/L (136-145); Total Bilirubin 0.4 mg/dL (0.15-1.2)
[2022-07-14 06:30] LABS: Glucose Point of Care 111 mg/dL (70-110)
--- NOTE | 2022-07-14 07:24 | P.PN_ITS ---
Subjective Subjective: POD 3 Patient resting comfortably in no apparent distress. She is off oxygen. Has mild back mild leg pain. She is mobilizing in the room. She is wanting to be discharged home. Vitals/I&O/Wt Last Vital Signs Temp 98.4 F 07/14/22 07:08 Pulse 100 07/14/22 07:08 Resp 16 07/14/22 07:08 BP 151/78 07/14/22 07:08 Pulse Ox 96 07/14/22 07:08 O2 Del Method 07/14/22 07:08 O2 Flow Rate 3 07/14/22 07:08 07/13/22 07/14/22 07/14/22 22:59 06:59 14:59 Intake Total 450 / 1048 52 / 1100 Output Total 500 / 1050 Balance -50 / -2 52 / 50 Physical Exam Narrative: Patient presents alert and oriented x3 with a good general appearance normal mood and affect. Normal coordination normal stability. Mild tenderness around the incisional site with the incision appears cleana nd dry.. No signs of erythema or drainage. No signs of infection. Patient denies any fevers or chills. 5/5 motor strength both lower extremities with negative straight leg raise bilaterally. Calves are supple no medial thigh tenderness. Pulses are 2+ at the dorsalis pedis and posterior tibial region. Good capillary refill throughout normal sensation light touch both lower extremities. Urinary Catheter Management: Corado: Cath Placed During This Visit: yes, but has since been removed by the nurse Reason for Continuing Indwelling Catheter: Decision to DC Catheter Urinary Catheter Date of Insertion: 07/11/22 Urinary Catheter Time of Insertion: 09:00 Date Urinary Catheter Removed: 07/13/22 Time Urinary Catheter Discontinued: 08:30 Data 07/14/22 02:03 07/14/22 02:03 A&P Assessment and plan (1) Status post lumbar spinal fusion: Physical therapy to continue to mobilize in the halls. Encourage the patient to continue with incentive spirometry for pulmonary toilet. Laxative of choice to help with bowel movement. Set her up with home health care for dressing changes. We will see her back in the office in 1 week's time. Will discharge home today pending approval by the hospitalist team. Riri at length with Sandra to continue walking program with a walker. No bending lifting or twisting activities. Call the office if she is having problems. We will see her back in 1 week's time for wound check. (2) Acute anemia: Attestations Medical Necessity Statement*: Home later today. Coding Level of Care Code Acute Kraft Mill Operator for Sharron Lr Diagnoses Status post lumbar spinal fusion Z98.1 Acute anemia D64.9
[2022-07-14] MEDS: pantoprazole DR 40 mg Tablet PO (07:42)
[2022-07-14] MEDS: gabapentin 300 mg Capsule 600 MG PO (07:42)
[2022-07-14] MEDS: BuSPIRONE 10 mg Tablet 15 MG PO (07:43)
[2022-07-14] MEDS: atorvastatin 40 mg Tablet 20 MG PO (07:43)
[2022-07-14] MEDS: docusate sodium 100 mg Capsule PO (07:43)
[2022-07-14] MEDS: levothyroxine 25 mcg Tablet PO (07:44)
[2022-07-14] MEDS: lidocaine 5% Patch 1 PATCH TOPICAL (07:45)
--- NOTE | 2022-07-14 09:25 | P.PN_ITS ---
Subjective Subjective: No complaints overnight. Pain is controlled. She reports she has had suspected COPD for quite some time, and is short of breath with exertion prior to surgery. She is wondered if she has needed oxygen for quite some time. I discussed with her the need to stop smoking, 3 to 5 minutes were spent. Medications: Reviewed: Yes Vitals/I&O/Wt Last Vital Signs Temp 98.4 F 07/14/22 07:08 Pulse 111 H 07/14/22 08:13 Resp 16 07/14/22 08:00 BP 151/78 07/14/22 07:08 Pulse Ox 87 L 07/14/22 08:00 O2 Del Method 07/14/22 08:00 O2 Flow Rate 3 07/14/22 07:08 07/13/22 07/14/22 07/14/22 22:59 06:59 14:59 Intake Total 450 / 1048 52 / 1100 240 / 240 Output Total 500 / 1050 Balance -50 / -2 52 / 50 240 / 240 Physical Exam Narrative: General exam is a white female, no distress Neck supple no lymphadenopathy or thyromegaly Cardiovascular regular rate and rhythm without murmur Lungs clear but with diminished breath sounds bilaterally Abdomen is soft positive bowel sounds. Extremities no cyanosis clubbing or edema. Skin no rash Back with bandage, clean and dry, lumbar area Urinary Catheter Management: Corado: Cath Placed During This Visit: yes, but has since been removed by the nurse Reason for Continuing Indwelling Catheter: Decision to DC Catheter Urinary Catheter Date of Insertion: 07/11/22 Urinary Catheter Time of Insertion: 09:00 Date Urinary Catheter Removed: 07/13/22 Time Urinary Catheter Discontinued: 08:30 Data 07/14/22 02:03 07/14/22 02:03 A&P Assessment and plan (1) Tachycardia: Mild, currently stable. Likely related to acute blood loss anemia, from surgical procedure. CTA demonstrated no definitive pulmonary embolism. Echocardiogram essentially normal. Electrolytes acceptable this morning. TSH was checked and normal. (2) Acute anemia: Status posttransfusion. Hemoglobin currently 8.2, stable No evidence of ongoing bleeding Not on anticoagulant. Appears to have iron deficiency anemia. Will need outpatient follow-up with primary care provider. CBC on follow-up. (3) Hypoxia: Improved but appears to have COPD. Continue albuterol as needed at home Add Advair Home oxygen evaluation prior to discharge (4) Leukocytosis: Secondary to stress, no evidence of infection (5) Status post spinal surgery: Per surgery (6) Hypotension: Resolved Plan Multiple other medical problems as outlined in past medical history Appears to be appropriate for discharge today with close follow-up. Attestations Medical Necessity Statement*: As per primary Coding Level of Care Code Acute Custom Bookbinder for g Fwd Diagnoses Tachycardia R00.0 Acute anemia D64.9 Hypoxia R09.02 Leukocytosis D72.829 Status post spinal surgery Z98.890 Hypotension I95.9
[2022-07-14 11:11] LABS: Glucose Point of Care 132 mg/dL (70-110)
--- NOTE | 2022-07-14 12:03 | PC.SOCIAL ---
Pg 2 IMM Explained to pt Pg 2 IMM. No questions voiced. Provided pt a copy. Initialed, dated, & timed a copy & placed in chart.
--- NOTE | 2022-07-15 14:15 | P.DS_ITS ---
Discharge Providers Date of Admission: 07/11/22 07:15 Date of Discharge: July 14, 2022 Attending Provider at Admission: Harshil El DO Attending Provider at Discharge: Harshil El DO Primary Care Provider: Eugene Bo MD Diagnoses at Discharge Discharge Diagnosis (1) Tachycardia: Status: Resolved (2) Acute anemia: Status: Acute (3) Hypoxia: Status: Resolved (4) Leukocytosis: Status: Acute (5) Status post spinal surgery: Status: Acute (6) Hypotension: Status: Resolved Reason for Visit Reason for Visit: M48.062 Hospital Course Hospital Course uneventful Physical Exam Urinary Catheter Management: Corado: Cath Placed During This Visit: yes, but has since been removed by the nurse Reason for Continuing Indwelling Catheter: Decision to DC Catheter Urinary Catheter Date of Insertion: 07/11/22 Urinary Catheter Time of Insertion: 09:00 Date Urinary Catheter Removed: 07/13/22 Time Urinary Catheter Discontinued: 08:30 Discharge Data Studies Completed and Pending Completed Studies During Hospitalization Category Date Time Status CTA chest [CT angio chest PE protcl 05306] Stat Cat Scan 07/13/22 08:56 Completed CXRP [XR chest 1V portable [id number]] Stat Exams 07/11/22 16:39 Completed XR lumbar spine 2-3V* [id number] Routine Exams 07/11/22 [place] [id number] Routine Ultrasound 07/13/22 20:51 Completed CV. echo complete* [id number] Routine Ultrasound 07/12/22 18:08 Completed Radiology Impressions Lumbar Spine X-Ray 07/11/22 00:00 IMPRESSION: Postsurgical changes as described above. Chest X-Ray 07/11/22 16:39 IMPRESSION: Moderate cardiomegaly. Otherwise, no acute findings. Chest CTA 07/13/22 08:56 IMPRESSION: 1. Examination is limited by breathing motion artifact. 2. No pulmonary embolism is identified. Very small peripheral pulmonary emboli cannot be completely excluded but there is no large occlusive central filling defects. 3. Atherosclerosis aorta. 4. Mild dependent changes of atelectasis at the lung bases. Next line no pericardial or pleural effusion. No pneumonia. Laboratory Results WBC 12.8 10^3/uL (4.0-10.0) H 07/14/22 02:03 RBC 2.75 10^6/uL (4.1-5.3) L 07/14/22 02:03 Hgb 8.2 g/dL (11.5-15.3) L 07/14/22 02:03 Hct 25.1 % (37.0-47.0) L 07/14/22 02:03 MCV 91.3 fl (81-99) 07/14/22 02:03 MCH 29.8 pg (28.0-34.0) 07/14/22 02:03 MCHC 32.7 g/dL (30.0-36.0) 07/14/22 02:03 RDW 13.7 % (12.1-15.1) 07/14/22 02:03 Plt Count 186 10^3/cmm (130-400) 07/14/22 02:03 MPV 11.4 fL (7.4-10.4) H 07/14/22 02:03 Neut % (Auto) 68.0 % 07/14/22 02:03 Lymph % (Auto) 22.6 % 07/14/22 02:03 Robertson % (Auto) 7.7 % 07/14/22 02:03 Eos % (Auto) 0.9 % 07/14/22 02:03 Baso % (Auto) 0.3 % 07/14/22 02:03 Neut # (Auto) 8.71 10^3/uL (1.8-7.7) H 07/14/22 02:03 Lymph # (Auto) 2.9 10^3/uL (0.8-4.8) 07/14/22 02:03 Robertson # (Auto) 1.0 10^3/uL (0.2-0.9) H 07/14/22 02:03 Eos # (Auto) 0.1 10^3/uL (0.0-0.8) 07/14/22 02:03 Baso # (Auto) 0.0 10^3/uL (0.0-0.1) 07/14/22 02:03 Nucleated RBC % (auto) 0 % 07/14/22 02:03 Nucleated RBCs # 0.0 /100WBC 07/14/22 02:03 D-Dimer 3.90 ug/mIFEU (0-0.59) H 07/11/22 19:53 Specimen Type Arterial 07/13/22 06:04 Sample Site Radial, right 07/13/22 06:04 ABG pH 7.43 (7.35-7.45) 07/13/22 06:04 ABG pCO2 42.5 mmHg (35-45) 07/13/22 06:04 ABG pO2 60.1 mmHg (80.0-100.0) L 07/13/22 06:04 ABG HCO3 27.8 mmol/L (22-26) H 07/13/22 06:04 ABG O2 Saturation 92.4 07/13/22 06:04 ABG Base Excess 3.1 mmol/L (-2.0-2.0) H 07/13/22 06:04 Abhi Test Pos 07/13/22 06:04 A-a O2 Gradient 4.9 mmHg (5-10) L 07/13/22 06:04 Hematocrit 27.3 % (37-47) L 07/13/22 06:04 Hgb O2 Saturation 89.8 % (95-100) L 07/13/22 06:04 Carboxyhemoglobin 1.7 %THgb (0.4-20.1) 07/13/22 06:04 Methemoglobin 1.1 % (0.4-1.5) 07/13/22 06:04 Total Hemoglobin 8.9 g/dL (12-16) L 07/13/22 06:04 Sodium 139.0 mmol/L (131-143) 07/13/22 06:04 Potassium 3.9 mmol/L (3.5-5.0) 07/13/22 06:04 Glucose 112.0 mg/dL (70-115) 07/13/22 06:04 Ionized Calcium 1.2 mmol/L (1.1-1.4) 07/13/22 06:04 O2 Delivery Device Nc 07/13/22 06:04 O2 Liters/Min 3.5 % 07/13/22 06:04 Mica Builder ID [place] 07/13/22 06:04 Sodium 139 mmol/L (136-145) 07/14/22 02:03 Potassium 4.0 mmol/L (3.5-5.1) 07/14/22 02:03 Chloride 103 mmol/L (98-107) 07/14/22 02:03 Carbon Dioxide 30 mmol/L (22-29) H 07/14/22 02:03 Anion Gap 10.0 (5-19) 07/14/22 02:03 BUN 9 mg/dL (8-23) 07/14/22 02:03 Creatinine 0.6 mg/dL (0.5-0.9) 07/14/22 02:03 GFR Calculation 99.4 mL/min (90-130) 07/14/22 02:03 Glucose 114 mg/dL (65-115) 07/14/22 02:03 POC Glucose 132 mg/dL (70-110) H 07/14/22 10:57 Calculated Osmolality 288 mOsm/kg (285-295) 07/14/22 02:03 Calcium 8.3 mg/dL (8.5-10.5) L 07/14/22 02:03 Magnesium 2.3 mg/dL (1.7-2.3) 07/14/22 02:03 Iron 24 ug/dL (37-145) L 07/12/22 02:31 TIBC 249 mcg/dl 07/12/22 02:31 % Saturation 9.6 % (20-50) L 07/12/22 02:31 Unsat Iron Binding 225 ug/dL (112-347) 07/12/22 02:31 Ferritin 92 ng/mL (15-150) 07/12/22 02:31 Total Bilirubin 0.4 mg/dL (0.15-1.2) 07/14/22 02:03 AST 38 U/L (0-32) H 07/14/22 02:03 ALT 19 U/L (0-33) 07/14/22 02:03 Alkaline Phosphatase 66 U/L (35-105) 07/14/22 02:03 Total Protein 6.0 g/dL (6.6-8.7) L 07/14/22 02:03 Albumin 3.2 g/dL (3.5-5.2) L 07/14/22 02:03 Globulin 2.8 g/dL (1.3-4.6) 07/14/22 02:03 TSH 1.85 uIU/mL (0.27-4.20) 07/11/22 18:00 Urine Color Colorless (Yellow) 07/12/22 04:50 Urine Appearance Clear (CLEAR) 07/12/22 04:50 Urine pH 5 (5-7) 07/12/22 04:50 Ur Specific [place] 1.015 (1.005-1.030) 07/12/22 04:50 Urine Protein Neg (Negative) 07/12/22 04:50 Urine Glucose (UA) Norm (Normal) 07/12/22 04:50 Urine Ketones Negative (Negative) 07/12/22 04:50 Urine Blood Neg (Negative) 07/12/22 04:50 Urine Nitrate Negative (Negative) 07/12/22 04:50 Urine Bilirubin Neg (Negative) 07/12/22 04:50 Urine Urobilinogen Norm mg/dL (Negative) 07/12/22 04:50 Ur Leukocyte Esterase Negative (Negative) 07/12/22 04:50 Blood Type A Positive 07/11/22 07:23 Rho(D) Type Positive 07/11/22 07:23 Antibody Screen Negative 07/11/22 07:23 Crossmatch See Detail 07/11/22 07:23 Vitals Last Vital Signs Temp 98.2 F 07/14/22 11:48 Pulse 98 07/14/22 12:29 Resp 18 07/14/22 12:27 BP 162/60 07/14/22 11:48 Pulse Ox 91 07/14/22 12:27 O2 Del Method 07/14/22 12:27 O2 Flow Rate 97 07/14/22 10:50 Discharge Plan Discharge Patient Disposition: Home Health Service Condition: Stable Prescriptions: New tramadol 50 mg Tablet 50 mg PO Q4H PRN (Reason: Moderate Pain) Qty: 30 0RF Advair Diskus 250-50 mcg/dose blister with device 1 inh inhalation BID Qty: 60 0RF Continued (DME) kory Valentine See Rx Instructions .Route Qty: 1 0RF Rx Instructions: As directed albuterol sulfate 90 mcg/actuation HFA aerosol inhaler 2 puff INHALATION QID PRN (Reason: Shortness Of Breath) Qty: 8.5 12RF (DME) StrongView True Matrix Meter to use once daily See Rx Instructions .Route .MEDSUPPLY Qty: 1 0RF Rx Instructions: use once daily with strips levothyroxine [Synthroid] 25 mcg tablet 25 mcg PO DAILY Qty: 90 11RF (DME) True Metrix Glucose Test Strip Strip See Rx Instructions .Route Qty: 100 11RF Rx Instructions: once a day, please provide lancets as well (DME) blood-glucose meter [True Metrix Glucose Meter] Misc See Rx Instructions .Route Qty: 1 5RF Rx Instructions: As directed alprazolam [Xanax] 0.25 mg tablet 0.25 mg PO TID PRN (Reason: Anxiety) Qty: 90 5RF (DME) Intraoperative Neuromonitoring See Rx Instructions .Route .MEDSUPPLY Qty: 1 0RF Rx Instructions: Intraoperative Neuromonitoring (DME) Bone Growth Stimulator E0748 See Rx Instructions .Route .MEDSUPPLY Qty: 1 0RF Rx Instructions: As directed acetaminophen [Tylenol Extra Strength] 500 mg Tablet 500 - 1,000 mg PO Q6H PRN (Reason: Pain) simvastatin 20 mg tablet 20 mg PO DAILY gabapentin 300 mg capsule See Rx Instructions .ROUTE .COMPLEX Rx Instructions: 600MG PO QAM AND 900MG PO BEDTIME omeprazole 20 mg capsule,delayed release(DR/EC) 20 mg PO BID buspirone 15 mg tablet 15 mg PO BID amitriptyline 100 mg tablet 100 mg PO BEDTIME turmeric 400 mg Capsule 400 mg PO BID Discontinued hydrocodone-acetaminophen 5-325 mg tablet 1 - 2 tab PO Q4H PRN (Reason: pain) 5 Days Qty: 40 0RF meloxicam 15 mg tablet 15 mg PO DAILY Discharge Orders: Discharge Order (Routine); Ordered 07/14/22 Ordered By: Cesar Cobb Referrals: Harshil El DO [Physician] - 07/21/22 11:15 am Eugene Bo MD [Primary Care Provider] - 07/18/22 3:50 pm (CBC on follow-up Evaluate for iron deficiency anemia noted in the hospital.) Discharge Diet: Advance as tolerated Discharge Activity: Limit activity as instructed Patient Instructions: Tramadol (By mouth), Fluticasone/Salmeterol (By breathing), Lumbar Spinal Fusion (GEN), Opioid Safety Activity Restrictions/Additional Instructions: Thank you for choosing [facility] for your care! The following is a list of instructions, from your provider, to follow upon your discharge to ensure you have the optimal recovery from your recent injury or surgery. Follow-up care is a [place] part of your treatment and safety. Be sure to make and go to all appointments and call your doctor if you are having problems. If you do not already have a follow-up appointment made, call Dr. El's] office in the next 1-3 days to make follow up appointment for 1 weeks at [phone]. It is also a good idea to know your test results and keep a list of the medicines you take. Medications will be prescribed for you at your provider's discretion. These medications are to be used as instructed; if they are taken more often that prescribed they will not be refilled early and in most cases will not be refilled at all. > When a refill is needed, you should contact kristi hamlin 2-3 business days before your prescription runs out. Medications will NOT be refilled by television repairer providers after hours! > Many pain medications contain Tylenol (Acetaminophen). Do not consume more than 4,000 mg of Tylenol per day in total with any combination of medications. > Pain medications can cause constipation. Please use an over the counter stool softener as directed, while taking pain medications. Consult your local pharmacist with questions or recommendations on stool softeners. If constipation persists, contact our office or your primary care provider. > While under our care, you are not to receive pain medications or other controlled substances from any other provider unless our office is notified and approves. Any attempts to do so will result in refusal to prescribe any further pain medications and possible dismissal from our practice. ? Walking is essential for the healing process after surgery. We would like you to slowly advance your walking. This should be done on relatively flat clear ground (inside or out) or can be done on a treadmill. Remember this goal does not have to happen all at once, slowly increase your distance and duration. This can be broken into more more than one walk per day as tolerated. Patients who walk as directed after surgery rarely require Physical Therapy. In the unlikely event this issue arises your provider will d [facility] staff to make the appropriate arrangements. ? No lifting over 5 pounds {a gallon of milk) or bending/twisting until further notice. Each of these activities places an unnecessary amount of stress onto the body and can impede the delicate healing process. > Instead of bending at the waist, keep your back straight and bend at the knees. > Instead of twisting your torso, keep your back straight and turn your entire body with your feet. ? You may sleep in any position which makes you comfortable. Many patients find comfort sleeping in a reclining chair. It is not abnormal to have difficulty sleeping for the first several weeks following your surgery. We recommend trying Benadry! or Tylenol PM as directed to help with your sleeping difficulties. Both medications are over the counter and available without prescription. ? NO SMOKING!!! Smoking dramatically increases the probability of developing postoperative wound infections. ? Common complaints after lumbar and/or thoracic spine surgery include, but are not limited to: numbness and/or tingling in the legs, pain around the incision and surrounding tissues, muscle spasms, or stiffness of the middle to low back. Contact our office if these symptoms persist or if an acute change occurs. ? No driving for the first 3-5days, and not while taking narcotics until seen at your follow-up appointment and cleared. There are no restrictions for riding on short trips, however if you take a longer trip, arrangements should be made to make regular stops to get out of the vehicle and stretch . ? Swelling is an unfortunate event that will take place with any surgery and is the primary source of your postoperative discomfort. While walking and regular approved activities helps control inflammation, there are additional steps you can take to minimize swelling. > Place ice over the surgical site and surrounding tissue for twenty minutes, followed by applying a low/medium heat (heating pad) for an additional twenty minutes every 1-2 hours as needed for painrelief. > You may use of over the counter anti-inflammatory medications (Ibuprofen, Motrin, Aleve, Advil, etc) as directed on the package label. These types of medicines will significantly reduce the amount of discomfort you experience after surgery from swelling. It should be noted that if you have and allergy to any of these medications, or a history of ulcers or kidney disease you should consult you primary care provider prior to starting these medications. Home oxygen evaluation prior to discharge Have primary care provider evaluate you for iron deficiency anemia, noted in the hospital. Discharge Attestations Time Spent in Discharge Care*: less than 30 min Quality Metrics Clinical Quality Measures [ No reported AMI, CVA or VTE this stay] Coding Level of Care Code Acute Chg FW DC note Diagnoses Tachycardia R00.0 Acute anemia D64.9 Hypoxia R09.02 Leukocytosis D72.829 Status post spinal surgery Z98.890 Hypotension I95.9
== END 2022-07-14 13:53 | disposition home health service (06) | DRG 460 ==
LOC: MEDSURG 15:54 → ICU 16:40 → MEDSURG 07-12 19:11
PROVIDERS: Anesthesiology; Internal Medicine; Admitting Provider Orthopaedic Surgery; PCP Family Medicine; Visit Provider Orthopaedic Surgery
PROC: 0SG107J Fusion of 2 or more Lumbar Vertebral Joints with Autologous Tissue Substitute, Posterior Approach, Anterior Column, Open Approach (ICD-10-PCS; principal; 2022-07-11 08:00)
DX: M48.062 Spinal stenosis, lumbar region with neurogenic claudication (principal); D62 Acute posthemorrhagic anemia; M51.26 Other intervertebral disc displacement, lumbar region; Z91.81 History of falling; Z88.5 Allergy status to narcotic agent; Z79.51 Long term (current) use of inhaled steroids; F41.9 Anxiety disorder, unspecified; E11.9 Type 2 diabetes mellitus without complications; K21.9 Gastro-esophageal reflux disease without esophagitis; E78.5 Hyperlipidemia, unspecified; E03.9 Hypothyroidism, unspecified; F17.200 Nicotine dependence, unspecified, uncomplicated; D72.829 Elevated white blood cell count, unspecified; M62.830 Muscle spasm of back; R00.0 Tachycardia, unspecified; J44.9 Chronic obstructive pulmonary disease, unspecified; I95.81 Postprocedural hypotension
CPT/HCPCS: 36415; 36416; 36430; 36600; 51702; 71045; 71275; 72100; 76000; 80051; 80053; 81003; 82330; 82728; 82805; 82962; 83540; 83550; 83735; 84443; 85018; 85025; 85378; 86850; 86900; 86920; 93005; 93306; 93970; 94640; 94760; 96372; 97110; 97116; 97163; 97530; C1713; J0330; J0690; J1100; J1170; J1200; J1644; J1815; J2250; J2370; J2405; J2704; J2710; J3010; J3370; J3475; J3490; J7030; J7050; J7613; J7644; P9016; P9045; Q9967

== ENCOUNTER → 2022-07-18 16:39 | Outpatient (BNVA) | payer MEDICARE, MEDICAID, SELFPAY | PROVIDERS: PCP Family Medicine; Visit Provider Family Medicine | DX: Z09 Encounter for follow-up examination after completed treatment for conditions other than malignant neoplasm (principal); D64.9 Anemia, unspecified; Z98.1 Arthrodesis status; J44.9 Chronic obstructive pulmonary disease, unspecified | CPT/HCPCS: 80053; 85025 ==

== ENCOUNTER → 2022-07-21 11:08 | Outpatient (BNVA) | payer MEDICARE, MEDICAID, SELFPAY | PROVIDERS: PCP Family Medicine; Visit Provider Orthopaedic Surgery | DX: Z47.89 Encounter for other orthopedic aftercare (principal); Z98.1 Arthrodesis status | CPT/HCPCS: 99024 ==

== ENCOUNTER → 2022-08-02 13:22 | Outpatient (BNVA) | payer MEDICARE, MEDICAID, SELFPAY | PROVIDERS: PCP Family Medicine; Visit Provider Orthopaedic Surgery | DX: Z98.1 Arthrodesis status (principal) | CPT/HCPCS: 72100; 99024 ==

== ENCOUNTER → 2022-08-18 15:40 | Outpatient (BNVA) | payer MEDICARE, MEDICAID, SELFPAY | PROVIDERS: PCP Family Medicine; Visit Provider Orthopaedic Surgery | DX: Z47.89 Encounter for other orthopedic aftercare (principal); Z98.1 Arthrodesis status | CPT/HCPCS: 72100; 99024 ==

== ENCOUNTER 2022-08-26 07:56 | Outpatient (CLI) | payer MEDICARE, MEDICAID, SELFPAY ==
--- NOTE | 2022-08-26 08:00 | CT_ITS ---
WS: [id number] CT PELVIS WITHOUT CONTRAST. HISTORY: post op lumbar fusion, increased burning pain TECHNIQUE: Contiguous imaging is performed of the pelvis without contrast. Coronal and sagittal refor mats are reviewed. All CT scans at [facility] use at least one of these dose optimization ranulfo hniques: automated exposure control; mA and/or kV adjustment per patient size (includes targeted exam s where dose is matched to clinical indication); or iterative reconstruction. DLP: 1322.50 mGy.cm COMPARISON: None available. Posterior fusion hardware is noted in the lower lumbar spine extending into the pelvis. Long bilatera l screws extend to the SI joints. No widening of the SI joints and no loosening around the screws. Pe dicle screws at L4 and LEFT L5 appear appropriately positioned. Only a small portion of the L4 verteb ral body and hardware is identified. There is a large postoperative laminectomy defect at L4. Thickening of the soft tissues but no well-d efined fluid collection. Study was performed without IV contrast. Bone graft material is nonfused. CT/CT pelvis wo con [id number] IMPRESSION: 1. Lumbar fusion extending into the pelvis appears intact from L4 to the sacru m. 2. Large posterior laminectomy defect with postsurgical changes at L4. 3. Postoperative changes in the soft tissues. Cannot comment further without IV contrast.
--- NOTE | 2022-08-26 08:16 | CT_ITS ---
WS: [id number] CT LUMBAR SPINE, noncontrast. HISTORY: POST OP LUMBAR FUSION/INCREASED BURNING PAIN TECHNIQUE: Contiguous 2.0 mm axial imaging are performed. Sagittal and coronal reformats are submitte d and reviewed. All CT scans at [facility] use at least one of these dose optimization techni ques: automated exposure control; mA and/or kV adjustment per patient size (includes targeted exams w here dose is matched to clinical indication); or iterative reconstruction. IV contrast: None DLP: 905.10 mGy-cm. COMPARISON: No similar studies. Posterior lumbar fusion extends from L2 to S1 with bilateral sacral screws extending through the SI j oints. No pedicle screw on the RIGHT at L5. No hardware fractures. Position appears appropriate. No l ucency around the screws. No significant widening of the SI joints. Bone graft is not fused. Disc spa james are narrowed. L1-2: Negative. L2-3: Mild annular disc bulging. Very mild encroachment upon the ventral thecal sac. Mild facet arthr itis. L3-4: Large laminectomy defect. Postsurgical changes in the soft tissues. L4-5: Continued large laminectomy defect. Distortion of the soft tissues due to surgery. L5-S1: Continued laminectomy defect. Very mild narrowing of the LEFT foramen. Mild atherosclerosis aorta. CT/CT lumbar spine wo con* [id number] IMPRESSION: 1. Continued postoperative changes in the soft tissues throughout the laminect pilar defect from L3 through L4. Extensive distortion of the soft tissues and obl iteration of the fat planes. 2. No hardware fracture or malposition is evident.
== END 2022-08-26 07:57 | disposition home or self-care (01) ==
LOC: RAD 08:04
PROVIDERS: PCP Family Medicine; Visit Provider Orthopaedic Surgery
DX: Z47.89 Encounter for other orthopedic aftercare (principal); Z98.1 Arthrodesis status; M54.50 Low back pain, unspecified; M51.36 Other intervertebral disc degeneration, lumbar region; M47.896 Other spondylosis, lumbar region
CPT/HCPCS: 72131; 72192; 99024

== ENCOUNTER → 2022-08-30 14:51 | Outpatient (BNVA) | payer MEDICARE, MEDICAID, SELFPAY | PROVIDERS: PCP Family Medicine; Visit Provider Orthopaedic Surgery | DX: Z47.89 Encounter for other orthopedic aftercare (principal); Z98.1 Arthrodesis status | CPT/HCPCS: 99024 ==

== ENCOUNTER → 2022-09-28 12:44 | Outpatient (BNVA) | payer MEDICARE, MEDICAID, SELFPAY | PROVIDERS: PCP Family Medicine; Visit Provider Family Medicine | DX: D64.9 Anemia, unspecified (principal); E03.9 Hypothyroidism, unspecified; E78.5 Hyperlipidemia, unspecified; E11.9 Type 2 diabetes mellitus without complications | CPT/HCPCS: 80053; 80061; 83036; 84443; 85025 ==

== ENCOUNTER → 2022-10-20 13:48 | Outpatient (BNVA) | payer MEDICARE, MEDICAID, SELFPAY | PROVIDERS: PCP Family Medicine; Visit Provider Orthopaedic Surgery | DX: Z98.1 Arthrodesis status (principal); Z47.89 Encounter for other orthopedic aftercare | CPT/HCPCS: 72100; 99024 ==

== ENCOUNTER 2022-11-02 10:35 | Outpatient (CLI) | payer MEDICARE, MEDICAID, SELFPAY | END 2022-11-02 10:36 | disposition home or self-care (01) | LOC: RT 11-04 10:37 | PROVIDERS: PCP Family Medicine; Visit Provider Orthopaedic Surgery | DX: Z13.6 Encounter for screening for cardiovascular disorders (principal); R00.0 Tachycardia, unspecified | CPT/HCPCS: 93005 ==

== ENCOUNTER → 2022-11-09 15:00 | Day surgery (SDC) | payer MEDICARE, MEDICAID, SELFPAY ==
[2022-11-02 12:52] VITALS: BMI 33.4
--- NOTE | 2022-11-02 13:03 | ECG_ITS ---
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 Measurements Intervals [place] Rate: 102 P: 9 ID: [id number] QRS: 27 QRSD: 88 T: -3 QT: 349 QTc: 455 Interpretive Statements SINUS TACHYCARDIA POSSIBLE LEFT ATRIAL ENLARGEMENT [-0.1mV P-WAVE IN V1/V2] POSSIBLE RIGHT VENTRICULAR CONDUCTION DELAY [RSR (QR) IN V1/V2] NONSPECIFIC ST & T-WAVE ABNORMALITY ABNORMAL RHYTHM ECG Compared to ECG 07/12/2022 15:02:57 No significant changes Electronically Signed On 11-02-2022 23:59:18 CDT by Jonathan Huynh M.D. [id number]
[2022-11-02 13:15] LABS: Basophils # 0.1 10^3/uL (0.0-0.1); Basophils % 0.8 %; Eosinophils # 0.1 10^3/uL (0.0-0.8); Eosinophils % 1.5 %; Hematocrit 33.6 % (37.0-47.0); Lymphocytes # 2.5 10^3/uL (0.8-4.8); Lymphocytes % 32.4 %; Mean Corpuscular HGB Conc 29.8 g/dL (30.0-36.0); Mean Corpuscular Hemoglobin 23.9 pg (28.0-34.0); Mean Corpuscular Volume 80.2 fl (81-99); Mean Platelet Volume 10.4 fL (7.4-10.4); Monocytes # 0.5 10^3/uL (0.2-0.9); Monocytes % 6.9 %; Neutrophils # 4.56 10^3/uL (1.8-7.7); Neutrophils % 58.1 %; Nucleated Red Blood Cells % 0 %; Platelet Count 395 10^3/cmm (130-400); Red Blood Count 4.19 10^6/uL (4.1-5.3); Red Cell Distribution Width 16.3 % (12.1-15.1); White Blood Count 7.8 10^3/uL (4.0-10.0)
[2022-11-02 13:32] LABS: Blood Urea Nitrogen 10 mg/dL (8-23); Calcium 8.5 mg/dL (8.5-10.5); Carbon Dioxide 26 mmol/L (22-29); Chloride 101 mmol/L (98-107); Glomerular Filtration Rate 99.4 mL/min (90-130); Glucose 100 mg/dL (65-115); Osmolality Calculated 283 mOsm/kg (285-295); Sodium 137 mmol/L (136-145)
--- NOTE | 2022-11-02 13:36 | P.ANESASSM_ITS ---
Pre-Anesthetic Assessment Height/Weight: Height 1.47 m Weight 72.575 kg Preop Diagnosis: Degenerative disc disease lumbar spine HNP left L3-4, lumbar stenosis Operation Date: 11/09/22 10:55 Proposed Procedures p Lumbar Fusion revision of painful Hardware:51312, T84.84xA(Not Applicable) - Harshil El DO Familial anesthetic complications: None Was Beta Jesus taken within 24 hours: N/A Was Clonidine taken within 24 hours: N/A Social Tobacco and No alcohol Exam alert and oriented x 3 Sinus tach approx. 105 bpm Airway Submandibular: within normal limits Cervical ROM: within normal limits Mallampati: Class II Dentition: false Pulmonary Chronic Obstructive Pulmonary Disease CV/HEM Arrythmia, Coronary Artery Disease, Hypertension and Myocardial Infarction GI Gastroesophageal Reflux Disease Metabolic Diabetes Mellitus, Hyperlipidemia, Morbid Obesity and Thyroid Disease Musc/skel Lower Back Pain and Osteoarthritis/DJD Neuropsych Anxiety and Depression Chronic pain Anesthetic Plan ASA status: 3 Anesthesia: General Other: Patient had mod-large back surgery in 07/28 (I remember her) lost 1300mls of blood in OR. She took a little bit to wake up in PACU (assuming secondary to COPD and gas retention) mild/mod hypotension in PACU given fluids/albumin/Ca++, H/H stable and sent to floor. Med/surg floor uncomfortable with patient and patient immediately sent to ICU--I caught up with her in ICU where to me she looked stable and in a lot of pain. Eventually H/H dropped postop day 1 and she was transfused 1 unit PRBC. Bottom line--she will take some time to awaken and requires excessive pain control. Medications/Allergies Home Medications Medication Instructions Recorded Confirmed Last Taken Type acetaminophen 500 mg tablet 500 - 1,000 mg PO Q6H PRN Pain 02/25/21 11/02/22 11/02/22 History (Tylenol Extra Strength) buspirone 15 mg tablet 15 mg PO BID 02/25/21 11/02/22 11/02/22 History gabapentin 300 mg capsule See Rx Instructions .Route .COMPLEX 02/25/21 11/02/22 11/02/22 History omeprazole 20 mg capsule,delayed 20 mg PO BID 02/25/21 11/02/22 11/02/22 History release simvastatin 20 mg tablet 20 mg PO DAILY 02/25/21 11/02/22 11/02/22 History walker #1 ea 04/05/21 10/20/22 Unknown Rx albuterol sulfate 90 mcg/actuation 2 puff inhalation QID PRN 03/02/22 11/02/22 11/02/22 Rx aerosol inhaler Shortness Of Breath #8.5 grams [facility] True Matrix Meter to #1 ea 05/18/22 10/20/22 Unknown Rx use once daily blood sugar diagnostic (True #100 ea 05/19/22 10/20/22 Unknown Rx Metrix Glucose Test Strip) levothyroxine 25 mcg tablet 25 mcg PO DAILY #90 tabs 05/19/22 11/02/22 11/02/22 Rx (Synthroid) blood-glucose meter (True Metrix #1 ea 05/25/22 10/20/22 Unknown Rx Glucose Meter) alprazolam 0.25 mg tablet (Xanax) 0.25 mg PO TID PRN Anxiety #90 tabs 05/29/22 11/02/22 11/02/22 Rx Bone Growth Stimulator E0748 #1 ea 07/11/22 10/20/22 Unknown Rx amitriptyline 100 mg tablet 100 mg PO BEDTIME 07/12/22 11/02/22 11/01/22 20:00 History cyclobenzaprine 10 mg tablet 10 mg PO TID PRN muscle spasm #90 10/20/22 11/02/22 11/02/22 Rx tabs Allergies Allergy/AdvReac Type Severity Reaction Status Date / Time morphine Allergy hives Verified 10/20/22 14:16 naproxen [From Aleve] AdvReac Intermediate gerd Verified 10/20/22 14:16 [facility] Anesthesia Medical History Anxiety Diabetes mellitus GERD (gastroesophageal reflux disease) History of colon polyps Hyperlipidemia Hypothyroidism Surgical History History of back surgery History of colonoscopy (01/26/22) 20 years History of esophagogastroduodenoscopy (01/26/22) History of hysterectomy History of neck surgery Family History Other Cancer Diabetes Hypertension Social History Smoking and tobacco status: current every day smoker Second hand smoke exposure: Yes Alcohol intake: never Lives independently: Yes Household members: none Marital status: Single Data Anesthesia 11/02/22 12:55 11/02/22 12:55 Short CBC 11/02/22 Range/Units 12:55 WBC 7.8 (4.0-10.0) 10^3/uL Hgb 10.0 L (11.5-15.3) g/dL Hct 33.6 L (37.0-47.0) % MCV 80.2 L (81-99) fl Plt Count 395 (130-400) 10^3/cmm Neut % (Auto) 58.1 % Neut # (Auto) 4.56 (1.8-7.7) 10^3/uL BMP 11/02/22 12:55 Sodium 137 Potassium 5.0 Chloride 101 Carbon Dioxide 26 BUN 10 Creatinine 0.6 Glucose 100 Calcium 8.5 Cardiac Studies: Echocardiogram 07/12/22
== END ==
LOC: OR 01-31 08:21
PROVIDERS: Anesthesiology; PCP Family Medicine; Visit Provider Orthopaedic Surgery
DX: Z01.818 Encounter for other preprocedural examination (principal); M51.36 Other intervertebral disc degeneration, lumbar region; T84.84XA Pain due to internal orthopedic prosthetic devices, implants and grafts, initial encounter; I25.10 Atherosclerotic heart disease of native coronary artery without angina pectoris; I10 Essential (primary) hypertension; E78.5 Hyperlipidemia, unspecified; E03.9 Hypothyroidism, unspecified; E11.9 Type 2 diabetes mellitus without complications; F41.9 Anxiety disorder, unspecified; K21.9 Gastro-esophageal reflux disease without esophagitis; F17.200 Nicotine dependence, unspecified, uncomplicated; Y79.2 Prosthetic and other implants, materials and accessory orthopedic devices associated with adverse incidents
CPT/HCPCS: 36415; 80048; 85025

== ENCOUNTER 2022-11-14 11:00 | Day surgery (SDC) | payer MEDICARE, MEDICAID, SELFPAY ==
[2022-11-14] VITALS (8 sets, daily range): BP systolic 96–130; BP diastolic 42–67; PULSE 101–113; RESP 16–22; TEMP 36.2–37.2; O2SAT 96–100; BMI 33.4
--- NOTE | 2022-11-14 11:39 | P.ANESUD_ITS ---
Pre-Anesthetic Update Pre-Anesthetic Assessment: Date of Surgery/Procedure: 11/14/22 Preop Keesha gnosis: Failed hardware status post lumbar fusion Proposed Procedure: Operation Date: 11/14/22 12:35 Proposed Procedures p Revision of Lumbar fusion: 98097, Z47.2(Not Applicable) - Harshil El, DO Any changes to Pre-Anesthetic Assessment?: No Last Intake: Intake Last Liquid Date 11/13/22 Last Liquid Time 21:00 Last Solid Date 11/13/22 Last Solid Time 12:00 Vitals: Temperature 99.0 F 11/14/22 11:21 Temperature Source Temporal Artery S can 11/14/22 11:21 Pulse Rate 113 H 11/14/22 11:21 Respiratory Rate 16 11/14/22 11:21 Blood Pressure 130/60 11/14/22 11:21 Blood Pressure Kena n 83 11/14/22 11:21 Pulse Oximetry 96 11/14/22 11:21 Oxygen Delivery Me thod 11/14/22 11:23 Exam: Pre-Anes Outpt Exam: alert, oriented x 3, clear to auscultation bilaterally and regular rate & rhythm Additional Exam Findings (including area of procedure): murmur Cardiac Studies: Echocardiogram 07/12/22
[2022-11-14] MEDS: sodium chloride 0.9% 1,000 ML 30 ML IV (11:40)
[2022-11-14] MEDS: HYDROmorphone 1 mg/mL INJ 1 mL 0.5 MG IVP (12:45)
[2022-11-14] MEDS: lidocaine-epi 1% 20 mL INJ (12:45)
--- NOTE | 2022-11-14 12:48 | W.PM.OPSUD ---
Surgery/Procedure H&P Update DATE OF PROCEDURE: November 14, 2022 DATE H&P PERFORMED: 10/20/22 H&P UPDATE INFORMATION: I have reviewed H&P completed within last 30 days, I have examined patient prior to procedure and No changes to prior documentation PREOP DIAGNOSIS: Failed hardware status post lumbar fusion PLANNED PROCEDURE: Operation Date: 11/14/22 12:35 Proposed Procedures p Revision of Lumbar fusion: 60360, Z47.2(Not Applicable) - Harshil El DO
[2022-11-14] MEDS: ceFAZolin 2,000 MG in sodium chloride 0.9% (plus) 50 ML 100 MG IV (13:16)
[2022-11-14] MEDS: vancomycin 1,000 MG SDV 1000 MG XX (14:00)
--- NOTE | 2022-11-14 14:32 | PM.OP ---
Operative Report Date of procedure: November 14, 2022 Pre-op diagnosis: Preop Diagnosis Failed hardware status post lumbar fusion Post-op diagnosis: same Procedure done: Removal of deep hardware from spine Surgeon: Harshil El Assistant Family Teacher: none Estimated blood loss (mL): 25 Procedure: Removal of deep hardware from spine Patient was brought to operative suite after undergoing is used with the prone position. All his impingement were well-padded patient is prepped draped no sterile fashion. Skin incision made over the top part of the previous incision. Dissection was made down on the right side. The pedicle screw was identified and the mei prominent was identified. High-speed bur was used to cut through the middle this is a metal cutting bur. The patient mei was then removed. Wounds were irrigated and wound was closed in a layered fashion with 0 Vicryl 2-0 Vicryl and Monocryl suture. Vancomycin powder was packed deep. Sterile dressings were applied patient was transferred to the PACU in stable condition.
--- NOTE | 2022-11-14 15:00 | ANE.PACU2 ---
Inpatient post-anesthesia follow up: Airway intact: Yes Vital signs: Temperature 97.1 F Pulse Rate 107 Respiratory Rate 20 Blood Pressure 106/67 Pulse Oximetry 97 Oxygen Delivery Me thod Simple Mask Oxygen Flow Rate 6 Fraction of Inspir ed Oxygen Hydration adequate: Yes Nausea and vomiting: No Pain level: 1 Mental status: Baseline
[2022-11-14] MEDS: HYDROcodone-acetaminophen 10-325 mg Tablet 1 TAB PO (15:53)
== END 2022-11-14 16:10 | disposition home or self-care (01) ==
PROVIDERS: PCP Family Medicine; Visit Provider Orthopaedic Surgery
PROC: (CPT 20680; principal; 2022-11-14 12:25)
DX: T84.296A Other mechanical complication of internal fixation device of vertebrae, initial encounter (principal); E11.9 Type 2 diabetes mellitus without complications; K21.9 Gastro-esophageal reflux disease without esophagitis; E78.5 Hyperlipidemia, unspecified; E03.9 Hypothyroidism, unspecified; F17.210 Nicotine dependence, cigarettes, uncomplicated; X58.XXXA Exposure to other specified factors, initial encounter
CPT/HCPCS: 20680; 86850; 86900; J0690; J1170; J2370; J2704; J3010; J3370; J3490; J7030

== ENCOUNTER → 2022-11-29 08:48 | Outpatient (BNVA) | payer MEDICARE, MEDICAID, SELFPAY | PROVIDERS: PCP Family Medicine; Visit Provider Orthopaedic Surgery | DX: Z47.89 Encounter for other orthopedic aftercare (principal) | CPT/HCPCS: 72100; 99024 ==

== ENCOUNTER → 2023-01-10 10:46 | Outpatient (BNVA) | payer MEDICARE, MEDICAID, SELFPAY | PROVIDERS: PCP Family Medicine; Visit Provider Orthopaedic Surgery | DX: Z98.1 Arthrodesis status (principal) | CPT/HCPCS: 72100; 99024 ==

== ENCOUNTER → 2023-02-21 11:12 | Outpatient (BNVA) | payer MEDICARE, MEDICAID, SELFPAY | PROVIDERS: PCP Family Medicine; Visit Provider Orthopaedic Surgery | DX: Z98.1 Arthrodesis status (principal); Z98.890 Other specified postprocedural states | CPT/HCPCS: 72100; 99214 ==

== ENCOUNTER 2023-04-05 09:15 | Outpatient (CLI) | payer MEDICARE, MEDICAID, SELFPAY ==
--- NOTE | 2023-04-05 09:15 | CT_ITS ---
WS: [id number] CT LUMBAR SPINE MYELOGRAM TECHNIQUE: CT myelogram of the lumbar spine with coronal and sagittal reformatted images. CLINICAL INFORMATION: M48.062 - Spinal stenosis, lumbar region with neurogenic ... COMPARISON: CT 08/26/2022 DLP: 1280.[address] scans at [facility] use at least one of these dose optimization techniques: automated e xposure control; mA and/or kV adjustment per patient size (includes targeted exams where dose is matc hed to clinical indication); or iterative reconstruction. FINDINGS: Pedicle screw fixation L2-S1 with bilateral sacroiliac fixation screws. Dorsal interconnecting rods a ppear intact. Disc space narrowing worse at L2-3 L4-L5 and L5-S1. Evidence of pedicle screw loosening bilateral L2, bilateral L3. Mild lucency along the bilateral sacroiliac fixation screws. Sparse post erolateral dorsal bone graft material. T12-L1: Shallow central disc protrusion. Spinal canal and foramen are patent. L1-L2: Mild disc bulging with slight narrowing LEFT subarticular recess. Mild facet arthropathy. Fora men are patent. L2-L3: Mild disc bulging with slight narrowing subarticular recess bilaterally, RIGHT greater than LE FT. Mild central canal stenosis. Slight retrolisthesis. Mild bilateral foraminal narrowing. L3-L4: Decompressive laminectomy defects. Spinal canal and foramen are patent. L4-L5: Postoperative laminectomy defects. Spinal canal and foramen are patent. L5-S1: Mild disc bulging and osteophytic ridging. Slight impingement traversing RIGHT greater than LE FT S1 nerve roots. Moderate facet arthropathy. Mild RIGHT greater than LEFT foraminal narrowing. Visualized pelvic bony structures: Normal. Paravertebral soft tissues: Normal. Partially visualized adrenal glands are normal. Sigmoid diverticulosis. IMPRESSION: 1. Pedicle screw fixation L2-S1 with bilateral sacroiliac fixation screws. 2. Evidence of pedicle screw loosening bilateral L2, bilateral L3. Mild lucency along the bilateral sacroiliac fixation screws. Sparse posterolateral posterior bone graft material. 3. Mild central canal stenosis L2-3 with impingement on the RIGHT greater than LEFT subarticular rec ess. Mild RIGHT greater than LEFT foraminal narrowing at this level. 4. Disc bulging L5-S1 with slight impingement on traversing RIGHT greater than LEFT S1 nerve roots. Mild bilateral foraminal narrowing RIGHT greater than LEFT.
--- NOTE | 2023-04-05 09:15 | IR_ITS ---
WS: [email or web address] MYELOGRAM LUMBAR SPINE Fluoroscopic guided lumbar myelogram CLINICAL INFORMATION: M48.062 - Spinal stenosis, lumbar region with neurogenic ... COMPARISON: None. TECHNIQUE: The procedure, including risks, benefits, and complications, were discussed with the patie nt who agreed to proceed. A timeout was performed to confirm correct patient, procedure, and site. Using sterile technique, the patient was prepped and draped in the usual sterile fashion. After admin istration of local anesthesia using 1% preservative-free lidocaine and using fluoroscopic guidance, a 22-gauge spinal needle was advanced into the subarachnoid space at the L3-L4 level. Subsequently 12 cc of Omnipaque 240 was administered into the thecal sac. The needle was removed and hemostasis was a chieved. Spot fluoroscopic images were obtained. FLUOROSCOPIC TIME: 1min [id number] # of spot films: Prior postoperative changes pedicle screw fixation L2-S1 with bilateral sacroiliac f ixation screws. Dorsal interconnecting rods. Laminectomy defects mid and lower lumbar spine. Aortic c alcification. Anterior hypertrophic changes lumbar spine. Osteopenia. IMPRESSION: 1. Uncomplicated lumbar myelogram. 2. Please see CT myelogram report for additional detail.
== END 2023-04-05 09:16 | disposition home or self-care (01) ==
LOC: RAD 09:17
PROVIDERS: PCP Family Medicine; Visit Provider Orthopaedic Surgery
DX: M48.062 Spinal stenosis, lumbar region with neurogenic claudication (principal); Z98.1 Arthrodesis status; M51.36 Other intervertebral disc degeneration, lumbar region
CPT/HCPCS: 62304; 72132; Q9966

== ENCOUNTER → 2023-04-18 10:59 | Outpatient (BNVA) | payer MEDICARE, MEDICAID, SELFPAY | PROVIDERS: PCP Family Medicine; Visit Provider Orthopaedic Surgery | DX: Z98.1 Arthrodesis status (principal); T84.296A Other mechanical complication of internal fixation device of vertebrae, initial encounter; Y79.2 Prosthetic and other implants, materials and accessory orthopedic devices associated with adverse incidents; M53.3 Sacrococcygeal disorders, not elsewhere classified | CPT/HCPCS: 99214 ==

== ENCOUNTER 2023-04-20 10:21 | Outpatient (CLI) | payer MEDICARE, MEDICAID, SELFPAY ==
--- NOTE | 2023-04-20 10:26 | MM_ITS ---
WS: [id number] BILATERAL SCREENING DIGITAL TOMOSYNTHESIS MAMMOGRAM WITH CAD HISTORY: SCREENING COMPARISON: 01/06/2022 and 02/12/2021 Bilateral CC and MLO views with tomosynthesis and synthetic mammography submitted. Computer aided det ection analyzed. Breast composition: There are scattered areas of fibroglandular density. No suspicious masses, microc alcifications or architectural distortion. Benign calcifications in each breast. IMPRESSION: MM/[place] [id number] BI-RADS: 2-Benign FOLLOW UP: 1 Year Follow-up
== END 2023-04-20 10:22 | disposition home or self-care (01) ==
LOC: RAD 10:23
PROVIDERS: PCP Family Medicine; Visit Provider Family Medicine
DX: Z12.31 Encounter for screening mammogram for malignant neoplasm of breast (principal); E78.5 Hyperlipidemia, unspecified; E03.9 Hypothyroidism, unspecified; E11.9 Type 2 diabetes mellitus without complications
CPT/HCPCS: 77063; 77067; 80053; 80061; 83036; 84443; 85025

== ENCOUNTER 2023-05-29 21:15 | Observation (INO) | payer MEDICARE, MEDICAID, SELFPAY ==
[2023-05-29] VITALS (18 sets, daily range): BP systolic 110–167; BP diastolic 67–136; PULSE 100–120; RESP 16–28; TEMP 36.7; O2SAT 90–99; BMI 37.6; BMI 34.9
--- NOTE | 2023-05-29 21:27 | CTR_ITS ---
PROCEDURE INFORMATION: Exam: CT Head Without Contrast Exam date and time: 05/29/2023 9:41 PM Age: 67 years old Clinical indication: Altered mental status/memory loss; Additional info: Sudden onset AMS TECHNIQUE: Imaging protocol: Computed tomography of the head without contrast. Radiation optimization: All CT scans at this facility use at least one of these dose optimization techniques: automated exposure control; mA and/or kV adjustment per patient size (includes targeted exams where dose is matched to clinical indication); or iterative reconstruction. REPORTING DATA: Count of CT and Cardiac NM exams in prior 12 months: This patient has received 4 known CTs and 0 known cardiac nuclear medicine studies in the 12 months prior to the current study. COMPARISON: CT head wo con* [id number] 02/25/2021 12:13 PM RADIATION DOSE METRICS: Total DLP (mGy-cm): 1129.7 FINDINGS: Brain: Mild diffuse white matter disease likely reflecting chronic microvascular ischemic changes. Cerebral ventricles: No ventriculomegaly. Paranasal sinuses: Visualized sinuses are unremarkable. No fluid levels. Mastoid air cells: Visualized mastoid air cells are well aerated. Bones/joints: Unremarkable. No acute fracture. Soft tissues: Unremarkable. CT/CT head wo con* [id number] IMPRESSION: 1. Negative for intracranial hemorrhage or mass effect. 2. Mild diffuse white matter disease likely reflecting chronic microvascular ischemic changes.
--- NOTE | 2023-05-29 21:27 | ECG_ITS ---
[facility] Test Date: 2023-05-29 Pat Name: Sandra Ramírez Department: Room: ICU09 Gender: Female [employer] Claim Adjuster: : 1955 Requested By: Mode Baca Order Number: [id number] Scott MD: Kayode Lee M.D. Measurements Intervals [place] Rate: 120 P: 67 UT: 155 QRS: 84 QRSD: 84 T: 71 QT: 331 QTc: 468 Interpretive Statements SINUS TACHYCARDIA POSSIBLE RIGHT VENTRICULAR CONDUCTION DELAY [RSR (QR) IN V1/V2] MODERATE ST DEPRESSION [0.05+ mV ST DEPRESSION] Compared to ECG 11/02/2022 13:15:11 ST (T wave) deviation now present T-wave abnormality no longer present Electronically Signed On 05-30-2023 11:20:04 CDT by Kayode Lee M.D. [email or web address]
--- NOTE | 2023-05-29 21:27 | XRR_ITS ---
PROCEDURE INFORMATION: Exam: XR Chest Exam date and time: 05/29/2023 9:44 PM Age: 67 years old Clinical indication: Other: AMS TECHNIQUE: Imaging protocol: Radiologic exam of the chest. Views: 1 view. COMPARISON: CR XR chest 1V portable [id number] 07/11/2022 5:45 PM FINDINGS: Lungs: Bibasilar atelectasis versus minimal infiltrate. Mild interstitial edema. Pleural spaces: Unremarkable. No pleural effusion. No pneumothorax. Heart/Mediastinum: Cardiomegaly. Bones/joints: Unremarkable. XR/XR chest 1V portable [id number] IMPRESSION: 1. Cardiomegaly. 2. Bibasilar atelectasis versus minimal infiltrate. 3. Mild interstitial edema.
--- NOTE | 2023-05-29 21:31 | W.ED.AMS ---
HPI - Altered Mental Status General: Chief Complaint: Altered Mental Status Stated Complaint: AMS Time Seen by Provider: 05/29/23 21:16 History of Present Illness: Per EMS patient arrived to the ER by EMS. She is altered mental status. Per EMS patient was all normal playing cards with her friends and then suddenly at 815 she stood up began to shake but was still awake and then from that moment on she was unable to communicate would not follow commands and was in an altered state. EMS states they had to give her Ativan on route to the ER because she kept trying to crawl off the cot and would not cooperate or sit still. Patient will not respond to verbal stimuli but does move all 4 extremities and withdraws from painful stimuli. Review of Systems General: Reports: ROS unobtainable due to mental status PFSH ED PFSH: Medical History Anxiety Diabetes mellitus GERD (gastroesophageal reflux disease) History of colon polyps Hyperlipidemia Hypothyroidism Sinus tachycardia Surgical History History of back surgery History of colonoscopy (01/26/22) 20 years History of esophagogastroduodenoscopy (01/26/22) History of hysterectomy History of neck surgery Family History Other Cancer Diabetes Hypertension Social History Smoking and tobacco/nicotine status: current every day tobacco/nicotine user Second hand smoke exposure: Yes Alcohol intake: never Substance/Drug Use: never Lives independently: Yes Household members: none Marital status: Single Physical Exam Const: COMMON NORMALS: no acute distress, average body habitus, healthy appearing, alert and well nourished EXAM LIMITATIONS: altered mental status HENMT: COMMON NORMALS: normocephalic, atraumatic, hearing grossly normal bilaterally, external ears normal, Normal external nose present, moist oral mucous membranes and oropharynx normal HEAD & SCALP: normocephalic and atraumatic NOSE: Normal external nose present EXTERNAL EAR: Yes external ears normal Eye: COMMON NORMALS: Equal, round and reactive pupils present, EOMs intact bilaterally, conjunctivae normal and no scleral icterus CONJUNCTIVA: Yes conjunctivae normal PUPIL: Yes Equal, round and reactive pupils present Neck/C-Spine: COMMON NORMALS: no lymphadenopathy, supple, no meningeal signs and no JVD Chest: COMMONS NORMALS: normal inspection of the chest and normal palpation of entire chest wall Resp: COMMON NORMALS: normal respiratory effort, No retractions, No use of accessory muscles and clear to auscultation bilaterally AUSCULTATION: clear to auscultation bilaterally Cardio: COMMON NORMALS: no JVD, regular rhythm, S1 normal heart sound present, S2 normal heart sound present, No gallops present (Cardio), No clicks present (Cardio) and No murmurs present (Cardio); negative for regular rate (Tachycardic) RATE: abnormal rate (Tachycardic) RHYTHM: regular rhythm HEART SOUNDS: S1 normal heart sound present and S2 normal heart sound present GI: COMMON NORMALS: Normal to inspection, nondistended, normoactive bowel sounds present, Soft to palpation, non-tender, No hepatosplenomegaly present and no masses PALPATION: Yes Soft to palpation and Yes No hepatosplenomegaly present : COMMON NORMALS: Yes no CVA tenderness BLADDER/KIDNEY EXAM: Yes no CVA tenderness Back/Pelvis: COMMON NORMALS: no CVA tenderness Extremity: OTHER: Moves all 4 extremities, Neuro: SENSORIUM/ORIENTATION: Yes alert MENINGEAL SIGNS: Yes no meningeal signs Course Vital Signs: Vital signs: Vital Signs Temperature 98.9 F 05/30/23 17:30 Pulse Rate 101 H 05/30/23 17:30 Respiratory Rate 14 05/30/23 17:30 Blood Pressure 150/62 05/30/23 17:30 Pulse Oximetry 99 05/30/23 16:00 Oxygen Delivery Me thod Room Air 05/30/23 16:00 Oxygen Flow Rate 1 05/30/23 11:00 MDM - Altered Mental Status Medical Decision Making Patient brought in by EMS with word salad speech and altered mental status. Initial blood sugar was approximately 120 patient's initial blood pressure was about 160 systolic. Patient was taken to CAT scan where a preliminary noncontrast CT head scan was read by me as negative for bleed. Dr. Oconnell was then notified who said due to the sudden onset and word salad speech she thought she was having a posterior CVA. Dr. Oconnell through the iPad watching conducted part of a physical exam and suggested we start tPA. Dr. Oconnell talk to the family member that was there and we were in agreements and tPA was started. Dr. Ware was consulted who agreed to place the patient in ICU for further evaluation and treatment. Differential Diagnosis Likely altered mental status; Unlikely alcoholic intoxication, delirium, dementia, hypoglycemia, hyponatremia, subarachnoid hemorrhage or sepsis Medical Records I reviewed the patient's medical records. Lab Data I reviewed the patient's lab results. 05/30/23 09:59 05/29/23 21:30 Radiology Impressions Chest X-Ray 05/29/23 21:27 IMPRESSION: 1. Cardiomegaly. 2. Bibasilar atelectasis versus minimal infiltrate. 3. Mild interstitial edema. Head CT 05/30/23 01:58 IMPRESSION: No evidence of acute intracranial hemorrhage, mass effect, or edema. No change from prior exam. Laboratory Results WBC 10.12 10^3/uL (3.29-11.43) 05/29/23 21: RBC 4.96 10^6/uL (3.85-5.65) 05/29/23 21:30 Hgb 11.90 g/dL (11.27-16.99) 05/29/23 21: Hct 38.2 % (36-47) 05/29/23 21: MCV 77.0 fl (85-98) L 05/29/23 21:30 MCH 24.0 pg (27-33) L 05/29/23 21: MCHC 31.2 g/dL (30-55) 05/29/23 21: RDW 17.7 % (12.1-15.1) H 05/29/23 21:30 Plt Count 429 10^3/cmm (157-399) H 05/29/23 21:30 MPV 10.5 fL (7.4-10.4) H 05/29/23 21:30 Neut % (Auto) 57.1 % 05/29/23 21:30 Lymph % (Auto) 33.4 % 05/29/23 21: [place] % (Auto) 8.0 % 05/29/23 21: Eos % (Auto) 0.9 % 05/29/23 21: Baso % (Auto) 0.4 % 05/29/23 21:30 Neut # (Auto) 5.78 10^3/uL (1.8-7.7) 05/29/23 21:30 Lymph # (Auto) 3.4 10^3/uL (0.8-4.8) 05/29/23 21:30 [place] # (Auto) 0.8 10^3/uL (0.2-0.9) 05/29/23 21:30 Eos # (Auto) 0.1 10^3/uL (0.0-0.8) 05/29/23 21:30 Baso # (Auto) 0.0 10^3/uL (0.0-0.1) 05/29/23 21: Nucleated RBC % (auto) 0 % 05/29/23 21: Nucleated RBCs # 0.0 /100WBC 05/29/23 21: PT 13.30 SECONDS (12.1-14.9) 05/29/23 21: INR 0.98 (0.8-1.2) 05/29/23 21:30 APTT 30.1 SECONDS (23.9-36.7) 05/29/23 21:30 Sodium 136 mmol/L (136-145) 05/29/23 21:30 Potassium 4.2 mmol/L (3.5-5.1) 05/29/23 21: Chloride 98 mmol/L (98-107) 05/29/23 21: Carbon Dioxide 25 mmol/L (22-29) 05/29/23 21: Anion Gap 17.2 (5-19) 05/29/23 21:30 BUN 22 mg/dL (8-23) 05/29/23 21:30 Creatinine 0.8 mg/dL (0.5-0.9) 05/29/23 21:30 GFR Calculation 71.1 mL/min (90-130) L 05/29/23 21: Glucose 130 mg/dL (65-115) H 05/29/23 21:30 POC Glucose 127 mg/dL (70-110) H 05/29/23 21:28 Calculated Osmolality 287 mOsm/kg (285-295) 05/29/23 21: Calcium 9.9 mg/dL (8.5-10.5) 05/29/23 21:30 Magnesium 2.2 mg/dL (1.7-2.3) 05/29/23 21:30 Total Bilirubin 0.4 mg/dL (0.15-1.2) 05/29/23 21:30 AST 21 U/L (0-32) 05/29/23 21:30 ALT 21 U/L (0-33) 05/29/23 21:30 Alkaline Phosphatase 116 U/L (35-105) H 05/29/23 21:30 Troponin T Baseline 16 ng/L (0-10) H 05/29/23 21:30 Troponin T 120 Minute 18.91 ng/L (0-10) H 05/29/23 00:25 Delta Troponin T 2.91 ABS# (0-10) 05/29/23 00:25 C-Reactive Protein 3.0 mg/L (0.0-4.9) 05/29/23 21:30 Total Protein 7.8 g/dL (6.6-8.7) 05/29/23 21: Albumin 4.8 g/dL (3.5-5.2) 05/29/23 21:30 Globulin 3.0 g/dL (1.3-4.6) 05/29/23 21: TSH 3.65 uIU/mL (0.27-4.20) 05/29/23 21: Prolactin 29.41 ng/mL (4.8-23.3) H 05/29/23 21:30 Urine Color Yellow (Yellow) 05/29/23 21:36 Urine Appearance Sl hazy (CLEAR) A 05/29/23 21:36 Urine pH 5 (5-7) 05/29/23 21:36 Ur Specific [place] 1.025 (1.005-1.030) 05/29/23 21:36 Urine Protein Trace (Negative) 05/29/23 21:36 Urine Glucose (UA) Norm (Normal) 05/29/23 21:36 Urine Ketones 1+ (Negative) H 05/29/23 21:36 Urine Blood Neg (Negative) 05/29/23 21:36 Urine Nitrate Negative (Negative) 05/29/23 21:36 Urine Bilirubin Neg (Negative) 05/29/23 21:36 Urine Urobilinogen 1 mg/dL (Negative) H 05/29/23 21:36 Ur Leukocyte Esterase Trace (Negative) H 05/29/23 21:36 Urine RBC None /hpf (0-2) 05/29/23 21:36 Urine WBC 0-4 /hpf (0-5) H 05/29/23 21:36 Ur Squamous Epith Cells 10-15 /hpf (0-5) H 05/29/23 21:36 Amorphous Sediment Not Reportable 05/29/23 21:36 Urine Bacteria 1+ /hpf (NONE) H 05/29/23 21:36 Urine Mucus 2+ /hpf 05/29/23 21:36 Urine Opiates Screen Negative ng/mL (Negative) 05/29/23 21:36 Ur Barbiturates Screen Negative ng/mL (Negative) 05/29/23 21:36 Ur Phencyclidine Scrn Negative ng/mL (Negative) 05/29/23 21:36 Ur Amphetamines Screen Negative ng/mL (Negative) 05/29/23 21:36 U Benzodiazepines Scrn Positive ng/mL (Negative) H 05/29/23 21:36 Urine Cocaine Screen Negative ng/mL (Negative) 05/29/23 21:36 U Marijuana (THC) Screen Negative ng/mL (Negative) 05/29/23 21:36 All radiology interpretation(s) finalized by discharge EKG Data EKG 1: I personally reviewed and interpreted this EKG as follows: EKG interpretation date: 05/29/23 EKG interpretation time: 21:24 Prior EKG tracings: not available for review Interpretation: EKG showed ventricular rate of 120 bpm, MA interval 155, QRS duration 84, QTc of 402, sinus tachycardia, possible right ventricular conduction delay, moderate ST depression Discharge Plan Discharge Patient Disposition: Admitted As Inpatient Admit Provider: Rodríguez Ware Clinical Impression: Posterior circulation stroke Condition: Stable Coding Level of Care Code ED Ceo And President for Sharron Lr
[2023-05-29 21:33] LABS: Glucose Point of Care 127 mg/dL (70-110)
[2023-05-29 21:36] LABS: Basophils % 0.4 %; Eosinophils # 0.1 10^3/uL (0.0-0.8); Eosinophils % 0.9 %; Hematocrit 38.2 % (36-47); Lymphocytes # 3.4 10^3/uL (0.8-4.8); Lymphocytes % 33.4 %; Mean Corpuscular HGB Conc 31.2 g/dL (30-55); Mean Platelet Volume 10.5 fL (7.4-10.4); Monocytes # 0.8 10^3/uL (0.2-0.9); Neutrophils # 5.78 10^3/uL (1.8-7.7); Neutrophils % 57.1 %; Nucleated Red Blood Cells % 0 %; Platelet Count 429 10^3/cmm (157-399); Red Blood Count 4.96 10^6/uL (3.85-5.65); Red Cell Distribution Width 17.7 % (12.1-15.1); White Blood Count 10.12 10^3/uL (3.29-11.43)
[2023-05-29 21:49] LABS: INR 0.98 (0.8-1.2)
[2023-05-29 21:56] LABS: Troponin(5th) Baseline 16 ng/L (0-10)
[2023-05-29 22:02] LABS: Add Urine Microscopic? YES; Bilirubin Urine Neg (Negative); Blood Urine Neg (Negative); Glucose Urine UA Norm (Normal); Ketones Urine 1+ (Negative); Leukocyte Esterase Urine Trace (Negative); Nitrate Urine Negative (Negative); Protein Urine Trace (Negative); Specific Gravity, Urine 1.025 (1.005-1.030); Urine Appearance SL Hazy (CLEAR); Urine Color Yellow (Yellow); Urobilinogen Urine 1 mg/dL (Negative); pH Urine 5 (5-7)
[2023-05-29 22:03] LABS: Add Urine Culture? No; Amphetamines Screen Urine Negative (Negative); Bacteria Urine 1+ /hpf; Barbiturates Screen Urine Negative (Negative); Benzodiazepines Screen Urine Positive (Negative); Mucus Urine 2+ /hpf; Opiate Screen Urine Negative (Negative); WBC Urine 0-4 /hpf (0-5)
[2023-05-29 22:05] LABS: Alanine Aminotransferase 21 U/L (0-33); Albumin Level 4.8 g/dL (3.5-5.2); Alkaline Phosphatase 116 U/L (35-105); Anion Gap 17.2 (5-19); Aspartate Amino Transferase 21 U/L (0-32); Blood Urea Nitrogen 22 mg/dL (8-23); Calcium 9.9 mg/dL (8.5-10.5); Carbon Dioxide 25 mmol/L (22-29); Chloride 98 mmol/L (98-107); Glomerular Filtration Rate 71.1 mL/min (90-130); Glucose 130 mg/dL (65-115); Magnesium 2.2 mg/dL (1.7-2.3); Osmolality Calculated 287 mOsm/kg (285-295); Potassium 4.2 mmol/L (3.5-5.1); Sodium 136 mmol/L (136-145); Thyroid Stimulating Hormone 3.65 uIU/mL (0.27-4.20); Total Bilirubin 0.4 mg/dL (0.15-1.2); Total Protein 7.8 g/dL (6.6-8.7)
[2023-05-29 22:15] LABS: Cocaine Screen Urine Negative (Negative); PCP Screen Urine Negative (Negative); THC Screen Urine Negative (Negative)
[2023-05-29 22:26] LABS: Partial Thromboplastin Time 30.1 SECONDS (23.9-36.7)
[2023-05-29] MEDS: labetalol 5 mg/mL SDV 20mL 10 MG IVP (22:53)
--- NOTE | 2023-05-29 22:53 | PC.NURSE ---
TPN still infusing, patients bp elevated x several retakes to diastolic pressure above 100. Dr Baca notified and labetalol 10mg ivp ordered.
[2023-05-29] MEDS: sodium chloride 0.9% 50 ML 200 ML IV (23:25)
--- NOTE | 2023-05-29 23:35 | P.HP_ITS ---
Providers/Chief Complaint Admitting Physician: Rodríguez Ware Primary Care Provider: Eugene Bo MD Chief Complaint: AMS History of Present Illness 67-year-old lady with history of borderline diabetes, HLD, hypothyroidism, chronic sinus tachycardia, has been assessed with equipment monitor phototypesetting which she wore for a week per family, recently had metoprolol dose increased, chronic back pain with prior lower spine surgery, other medical problems was brought in for evaluation due to sudden onset altered mental status starting around 8:15 PM this evening while with family when she began acting unlike herself, having difficulties communicating with reported word salad . During the trip over to the hospital received Ativan by EMS due to confusion, restlessness. In ER was assessed with regards to acutely altered mental status, aphasia, was assessed by plain CT which was unremarkable, was also assessed by neurology with findings suggestive of posterior circulation CVA, after discussion with family was started on tPA which she had just completed. She states she is bothered by her IV, Corado catheter, as well as has been bothered by her chronic back pain making it uncomfortable for her to lay in bed. She is moving around trying to find a comfortable position. Per discussion with family her symptoms appear to be significantly better compared to how she was at home. She is able to provide some history of, although is still noted to have aphasia and mild confusion. She tells me that she had recently seen her primary provider who had done some x-rays on her back. Confirms also that her metoprolol dose was recently increased. She states that she has been having trouble sleeping recently and could not sleep for several nights. At home she takes melatonin for this. It does take her a while to answer questions, at one point she takes a long time trying to open the picture of the x-ray of her back on her phone and having difficulty. Most history obtained from her daughter. Review of Systems Const: Reports: change in sleep pattern Card: Reports: other (chronic tachycardia) Musc: Reports: back pain (chronic) Neuro: Reports: confusion, difficulty communicating thoughts and involuntary movements Medications/Allergies Home Medications Medication Instructions Recorded Confirmed Last Taken Type acetaminophen 500 mg tablet 500 - 1,000 mg PO Q6H PRN Pain 02/25/21 05/23/23 11/11/22 History (Tylenol Extra Strength) walker #1 ea 04/05/21 05/23/23 Unknown Rx centereddie True Matrix Meter to #1 ea 05/18/22 05/23/23 Unknown Rx use once daily blood sugar diagnostic (True #100 ea 05/19/22 05/23/23 Unknown Rx Metrix Glucose Test Strip) levothyroxine 25 mcg tablet 25 mcg PO DAILY #90 tabs 05/19/22 05/23/23 11/13/22 07:00 Rx (Synthroid) blood-glucose meter (True Metrix #1 ea 05/25/22 05/23/23 Unknown Rx Glucose Meter) Bone Growth Stimulator E0748 #1 ea 07/11/22 05/23/23 Unknown Rx fluticasone 250 mcg-salmeterol 50 1 inh inhalation BID 11/14/22 05/23/23 Unknown History mcg/dose blistr powdr for inhalation (Advair Diskus) buspirone 15 mg tablet See Rx Instructions .Route 12/05/22 05/23/23 Unknown Rx .COMPLEX #180 tabs cyclobenzaprine 10 mg tablet 10 mg PO TID PRN muscle spasm #90 12/20/22 05/23/23 Unknown Rx tabs alprazolam 0.25 mg tablet 0.25 mg PO TID PRN anxiety #90 tabs 01/18/23 05/23/23 Unknown Rx gabapentin 300 mg capsule See Rx Instructions .Route 01/18/23 05/23/23 Unknown Rx .COMPLEX #450 caps albuterol sulfate 90 mcg/actuation 2 puff inhalation QID PRN 03/27/23 05/23/23 Unknown Rx aerosol inhaler Shortness Of Breath #8.5 grams acetaminophen 300 mg-codeine 30 mg 1 tab PO Q8H PRN pain #60 tabs 04/24/23 1 Unknown Rx tablet omeprazole 20 mg capsule,delayed See Rx Instructions .Route 04/24/23 05/23/23 Unknown Rx release .COMPLEX #180 caps simvastatin 20 mg tablet See Rx Instructions .Route 04/24/23 05/23/23 Unknown Rx .COMPLEX #90 tabs metoprolol succinate 50 mg 50 mg PO DAILY #30 tabs 05/23/23 05/23/23 Unknown Rx tablet,extended release 24 hr meloxicam 15 mg tablet See Rx Instructions .Route 05/29/23 Unknown Rx .COMPLEX #90 tabs Allergies Allergy/AdvReac Type Severity Reaction Status Date / Time morphine Allergy hives Verified 05/29/23 21:26 naproxen [From Aleve] AdvReac Intermediate gerd Verified 05/29/23 21:26 PFSH Acute PFSH: Medical History Anxiety Diabetes mellitus GERD (gastroesophageal reflux disease) History of colon polyps Hyperlipidemia Hypothyroidism Sinus tachycardia Surgical History History of back surgery History of colonoscopy (01/26/22) 20 years History of esophagogastroduodenoscopy (01/26/22) History of hysterectomy History of neck surgery Family History Other Cancer Diabetes Hypertension Social History Smoking and tobacco/nicotine status: current every day tobacco/nicotine user Second hand smoke exposure: Yes Alcohol intake: never Substance/Drug Use: never Lives independently: Yes Household members: none Marital status: Single Vitals/I&O/Wt Last Vital Signs Temp 98.1 F 05/29/23 21:17 Pulse 120 H 05/29/23 22:48 Resp 16 05/29/23 22:48 BP 167/115 05/29/23 22:48 Pulse Ox 95 05/29/23 22:48 O2 Del Method Room Air 05/29/23 21:17 Weight last 48 hrs Weight 79.333 kg Weight 81.647 kg Physical Exam Narrative: Accompanied by her daughter at bedside. Const: COMMON NORMALS: patient oriented x3 and alert GENERAL APPEARANCE: cooperative (But does not follow all directions well) ORIENTATION/CONSCIOUSNESS: Yes awake and Yes confused (Mild confusion, improved compared to prior) HENMT: COMMON NORMALS: oropharynx normal Neck/C-Spine: COMMON NORMALS: no JVD Resp: COMMON NORMALS: normal respiratory effort and clear to auscultation bilaterally AUSCULTATION: clear to auscultation bilaterally Cardio: COMMON NORMALS: no JVD, regular rhythm, S1 normal heart sound present, S2 normal heart sound present and No murmurs present (Cardio) RHYTHM: regular rhythm HEART SOUNDS: S1 normal heart sound present and S2 normal heart sound present GI: COMMON NORMALS: Normal to inspection, nondistended, normoactive bowel sounds present, Soft to palpation and non-tender PALPATION: Yes Soft to palpation Extremity: COMMON NORMALS: no joint enlargement and no pedal edema Neuro: COMMON NORMALS: moves all extremities SENSORIUM/ORIENTATION: Yes alert OTHER: Examination is difficult. Follows directions but requires extra guidance and still does not perform some tasks correctly. I do not appreciate facial droop. She is still having at least mild to moderate aphasia. He is able to track horizontally. Visual stewart appear full to confrontation, unable to follow directions to cover her right eye. Does not appear to have a visual extinction. Sensation exam is inconsistent. Had not appreciated upper extremity drift. She is bothered by back pain to be able to cooperate with motor exam of lower extremities. Skin: COMMON NORMALS: no rashes or lesions noted GENERAL SKIN EXAM: no rashes or lesions noted Data 05/29/23 21:30 05/29/23 21:30 A&P Assessment and plan (1) Posterior circulation stroke: Assessed in ER with regards to AMS, difficulty communicating, reviewed baseline CT head, noted unremarkable, mild diffuse white matter disease likely reflecting chronic microvascular ischemic changes. She was assessed by neurology with findings corresponding to posterior circulation CVA after discussion with family was started on tPA which she had just completed. Overall appears to show improvement in symptoms although still residual aphasia, does still have mild confusion. Discussed with her and her daughter, continue post tPA care in intensive care unit. Monitor blood pressure. Currently blood pressure softer 108/66. Discussed with nursing staff started IV fluid. Zofran as needed for nausea. Discussed with patient and her daughter anticipate hospitalization for at least several days given posterior circulation CVA, at risk of dangerous cerebral mariann feliberto. Has a number of risk factors, please go over with her with regards to them once she is feeling better again. Follow-up CT requested. Start statin. Aspirin not started at this time due to tPA, start 24 hours afterward. Monitor on telemetry, although reported did have equipment monitor phototypesetting which she wore for a week, no history of atrial fibrillation. Monitor for arrhythmia. Will assess A1c, reports borderline diabetes, baseline lipid profile. Would benefit from smoking cessation. Obtain echo bubble study, carotid duplex. Assess MRI brain. ST, PT, OT. Corado in place for now after tpa. Need follow-up with neurology after discharge. Discontinue meloxicam at discharge, avoid NSAIDs. Discussed with ER physician. ER documentation reviewed. SCD DVT prophylaxis for now. Consider prophylactic anticoagulant 24h after tpa. (2) AMS (altered mental status): Acute posterior circulation CVA as above. Reported episode of shaking at home, maintain seizure precautions. Reviewed CBC, CMP, chest x-ray, UA. Not suggestive of acute infection. Some bibasilar atelectasis versus infiltrate noted on chest x-ray. Add incentive spirometer. Monitor symptoms. Follow-up CBC. Requesting home medications to be confirmed. Plan Insomnia: She has not been able to sleep for several nights. Requests for something to help her sleep. Discussed with her daughter, she will bring her melatonin from home which can be resumed once available, for tonight discussed about a dose of Restoril. Chronic back pain: She suffers from chronic back pain which has made it difficult for her to stay still on the ER bed. She had previously taken hydrocodone in the past and is okay with resuming it. Tylenol as needed for milder pain. Dilaudid IV as needed for severe breakthrough pain. She had previously undergone lower back surgery, with additional operative treatment recommended but she preferred not to pursue further surgery. Chronic tachycardia: Wore a heart monitor. Recently metoprolol dose was increased. Did not resume metoprolol just yet as blood pressure on the soft side after received labetalol. Please reassess. DM2: Reports history of borderline diabetes, assess A1c. HLD: Upgrade to high intensity statin, baseline lipid profile requested Hypothyroidism: Reviewed TSH. Levothyroxine. GERD: PPI IV for now Requesting to confirm her medications. Please resume once available. Attestations Medical Necessity Statement*: Admission of over 2 midnights anticipated for assessment and management of CVA, acute AMS. Coding Level of Care Code Critical Care >/= 30 minutes Critical care time (in minutes): 35 The high probability of a clinically significant, sudden or life threatening deterioration, as referenced in this documentation, required my full and direct attention, intervention and personal management. The critical care time shown is in addition to time spent performing any reported separately billable procedures and includes the following: [x] Data and vital sign review and interpretation [x ] Patient assessment, examination and intervention [x] Medication orders and management [x] Patient/Family updates as able [x] Care Coordination and Documentation. Diagnoses Posterior circulation stroke I63.50 AMS (altered mental status) R41.82
[2023-05-29 23:49] LABS: Prolactin 29.41 ng/mL (4.8-23.3)
[2023-05-29] MEDS: HYDROmorphone 1 mg/mL INJ 1 mL 0.4 MG IVP (23:51)
[2023-05-30] VITALS (48 sets, daily range): BP systolic 83–156; BP diastolic 40–82; PULSE 91–115; RESP 11–32; TEMP 36.6–37.2; O2SAT 73–99
[2023-05-30] MEDS: ondansetron 2 mg/ML SDV 2 mL 4 MG IVP ×4 (00:11→18:44)
[2023-05-30] MEDS: lactated ringers 1,000 ML 125 ML IV ×2 (00:16→08:18)
[2023-05-30 00:52] LABS: Troponin 5 2HR 18.91 ng/L (0-10)
[2023-05-30 00:54] LABS: Troponin 5 2HR Delta 2.91 ABS# (0-10)
[2023-05-30] MEDS: pantoprazole 40 mg SDV IVP ×2 (01:06→08:17)
[2023-05-30] MEDS: metoclopramide 5 mg/mL SDV 2 mL IVP (01:08)
[2023-05-30] MEDS: HYDROmorphone 1 mg/mL INJ 1 mL 0.4 MG IVP ×3 (01:10→11:48)
--- NOTE | 2023-05-30 01:58 | CTR_ITS ---
PROCEDURE INFORMATION: Exam: CT Head Without Contrast Exam date and time: 05/30/2023 2:27 AM Age: 67 years old Clinical indication: Other: Severe nausea, vomiting after tpa; Additional info: Severe nausea, vomiting after tpa TECHNIQUE: Imaging protocol: Computed tomography of the head without contrast. Radiation optimization: All CT scans at this facility use at least one of these dose optimization techniques: automated exposure control; mA and/or kV adjustment per patient size (includes targeted exams where dose is matched to clinical indication); or iterative reconstruction. REPORTING DATA: Count of CT and Cardiac NM exams in prior 12 months: This patient has received 5 known CTs and 0 known cardiac nuclear medicine studies in the 12 months prior to the current study. COMPARISON: CT head wo con* [id number] 05/29/2023 9:41 PM RADIATION DOSE METRICS: Total DLP (mGy-cm): 1107.18 FINDINGS: Brain: No hemorrhage. Unremarkable white matter. No mass effect. Preserved johnson-white interfaces. Cerebral ventricles: No ventriculomegaly. Paranasal sinuses: Visualized sinuses are unremarkable. No fluid levels. Mastoid air cells: Visualized mastoid air cells are well aerated. Bones/joints: Unremarkable. No acute fracture. Soft tissues: Unremarkable. CT/CT head wo con* [id number] IMPRESSION: No evidence of acute intracranial hemorrhage, mass effect, or edema. No change from prior exam.
[2023-05-30] MEDS: metoclopramide 5 mg/mL SDV 2 mL 10 MG IVP (02:54)
--- NOTE | 2023-05-30 02:58 | PC.NURSE ---
Arrival to ICU: Pt arrived to ICU 9 @0434 05/29/24 via stretcher. Since arrival to unit pt has vomited approximately 8 times and has continually dry heaved. Pt has also reported between 8 to 10 out of 10 pain in her lower back consistently, even with pain medication. Dr. Ware notified. New order for Dilaudid 0.4mg IVP NOW ONCE. After conversing with the pt she reported that her pain level is always high and would rate it 10/[address] Ware made aware of these things. See MAR for medications given.
--- NOTE | 2023-05-30 03:27 | ECG_ITS ---
[facility] Test Date: 2023-05-30 Pat Name: Sandra Ramírez Department: Room: 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 Measurements Intervals [place] Rate: 105 P: 75 NH: 156 QRS: 87 QRSD: 84 T: 78 QT: 352 QTc: 467 Interpretive Statements SINUS TACHYCARDIA POSSIBLE RIGHT VENTRICULAR CONDUCTION DELAY [RSR (QR) IN V1/V2] MODERATE ST DEPRESSION [0.05+ mV ST DEPRESSION] Compared to ECG 11/02/2022 13:15:11 ST (T wave) deviation now present T-wave abnormality no longer present Electronically Signed On 05-30-2023 11:20:16 CDT by Kayode Lee M.D. [email or web address]
--- NOTE | 2023-05-30 06:00 | USCV_ITS ---
Sandra Ramírez Age: 67 Gender: F : 1955 Exam Date: 05/30/2023 02:55 Ordering Phys: Rodríguez Ware MD Technologist: DEBBIE [place] [facility] [place] Indication: cva, aphasia, altered mental status. Risk Factors: cva, aphasia, altered mental status. Previous Vascular Surgery: unknown Right Brachial BP: 167 / 115 Left Brachial BP: / Right Left Velocity (cm/s) Spectral Plaque Velocity (cm/s) Spectral Plaque Syst/Diast Broadening Syst/Diast Broadening 102.50/12.10 Min Homo Prox CCA 113.60/ 6.60 Min Homo 87.10/ 8.80 Min Homo Mid CCA 103.60/ 16.50 Min Homo 103.60/16.50 Min Hetro Distal CCA 110.30/ 11.00 Min Hetro 109.20/28.70 Min Rolo Prox ICA 111.70/ 18.40 Min Rolo 83.80/ 22.10 Min Hetro Mid ICA 135.40/ 27.60 Min Hetro 101.40/25.40 Min Homo Distal ICA 130.10/ 30.20 Min Hetro 148.80 Min Homo ECA 201.10 Mod Homo 1.05 ICA/CCA 1.19 Antegrade Vertebral Bi- directiona l 84.90/ 11.00 cm/s 30.90/ 26.50 cm/s Tri Subclavian Tri 84.90 118.0 0 FINDINGS Comparison: none available. Diffuse bilateral scattered calcified plaque and intimal thickening throughout the common carotid arteries and extending through the bifurcation. No stenosis. Bidirectional flow left vertebral artery. CONCLUSIONS Bilateral ICA stenosis less than 50%. Prevertebral steal waveform left vertebral artery. Dr. Glory De Luna DO (Electronically Signed) Final Date: 30 May 2023 11:29 S
[2023-05-30] MEDS: HYDROcodone-acetaminophen 5-325 mg Tablet 1 TAB PO ×2 (08:17→13:50)
[2023-05-30] MEDS: levothyroxine 25 mcg Tablet PO (08:17)
[2023-05-30 10:14] LABS: Basophils # 0.1 10^3/uL (0.0-0.1); Basophils % 0.6 %; Eosinophils # 0.1 10^3/uL (0.0-0.8); Eosinophils % 0.9 %; Hematocrit 34.1 % (36-47); Lymphocytes # 3.2 10^3/uL (0.8-4.8); Lymphocytes % 30.8 %; Mean Corpuscular HGB Conc 30.2 g/dL (30-55); Mean Corpuscular Hemoglobin 24.1 pg (27-33); Mean Corpuscular Volume 79.9 fl (85-98); Monocytes # 0.9 10^3/uL (0.2-0.9); Monocytes % 8.5 %; Neutrophils # 6.17 10^3/uL (1.8-7.7); Neutrophils % 58.9 %; Nucleated Red Blood Cells % 0 %; Platelet Count 365 10^3/cmm (157-399); Red Blood Count 4.27 10^6/uL (3.85-5.65); White Blood Count 10.46 10^3/uL (3.29-11.43)
[2023-05-30 10:30] LABS: Chol HDL Ratio 4.52 mg/dL (0.0-4.40); Cholesterol 140 mg/dL (0-200); HDL Cholesterol 31 mg/dL (60-100); LDL Cholesterol Calculated 81 mg/dL (50-129); LDL HDL Ratio 2.61 RATIO (0.00-3.22); Triglycerides 140 mg/dL (0-150)
[2023-05-30 10:32] LABS: Estmated Average Glucose 128; Hemoglobin A1C 6.1 % (4.0-6.0)
[2023-05-30 10:45] LABS: Troponin 5 6HR 16.29 ng/L (0-10); Troponin 5 6HR Delta 0.29 ng/L (0-12)
--- NOTE | 2023-05-30 10:50 | PC.OT ---
OT EVALUATION ORDERS RECEIVED. DUE TO TPA; PATIENT WILL BE ON HOLD UNTIL TOMORROW.
[2023-05-30] MEDS: BuSPIRONE 10 mg Tablet 15 MG PO ×2 (11:08→17:31)
[2023-05-30] MEDS: ALPRAZolam 0.5 mg Tablet 0.25 MG PO ×2 (11:08→17:31)
[2023-05-30] MEDS: nicotine 21 mg Patch 1 PATCH TRANSDERMA (11:08)
--- NOTE | 2023-05-30 11:21 | P.PN_ITS ---
Subjective Subjective: No active focal deficit I will let her eat Patient seems very anxious Smokes 1 pack/day She will need to stay in the hospital for next 24 hours We will do MRI today Start anxiolytics Currently patient is on room air saturating well Does not use oxygen at home A1c 6.1 We will do echo once her heart rate is better Patient is stating that she has been taking metoprolol for her tachycardia We will request D-dimer for tomorrow TSH noted prolactin 29 Room Corado catheter Vitals/I&O/Wt Last Vital Signs Temp 98.2 F 05/30/23 09:05 Pulse 106 H 05/30/23 10:00 Resp 16 05/30/23 10:00 BP 109/46 05/30/23 10:00 Pulse Ox 96 05/30/23 10:00 O2 Del Method Nasal Cannula 05/30/23 10:00 O2 Flow Rate 1 05/30/23 10:00 05/29/23 05/30/23 05/30/23 22:59 06:59 14:59 Intake Total 587.867 / 587.867 653.333 / 653.333 Output Total 250 / 250 Balance 337.867 / 337.867 653.333 / 653.333 Weight last 48 hrs Weight 78.471 kg Weight 79.333 kg Weight 81.647 kg Physical Exam Narrative: Nonfocal neuro exam GCS 15 Anxious. Tachycardia Abdomen soft Signs of dehydration present Abdomen soft S1, S2 Corado catheter will be removed today Pleasant and cooperative Able to answer all my questions NIH 0 Urinary Catheter Management: Corado: Cath Placed During This Visit: yes Reason for Continuing Indwelling Catheter: Accurate Measurement of Urinary Output in Critically Ill Patients Urinary Catheter Date of Insertion: 05/29/23 Urinary Catheter Time of Insertion: 22:10 Data 05/30/23 09:59 05/29/23 21:30 A&P Assessment and plan (1) AMS (altered mental status): (2) Posterior circulation stroke: (3) Sinus tachycardia: (4) Herniated nucleus pulposus, L3-4 left: (5) GERD (gastroesophageal reflux disease): (6) Diabetes mellitus: (7) Degenerative lumbar disc: Plan Metabolic encephalopathy Concern for posterior circulation stroke We will request MRI Nonfocal neuro exam today NIH 0 Status post tPA Monitor for next 24 hours Request D-dimer for tomorrow patient is tachycardic Active signs of dehydration, akathisia present We will give her anxiolytics Patient lives alone at home, PT OT ST pending however bedside evaluation passed, will let her eat Patient is experiencing nausea, patient stating that she does get nauseous and couple episodes of vomiting on monthly basis, she is denying history of GERD, h iatal hernia Repeat CT head unremarkable Monitor in ICU Once patient is able to tolerate diet we will discontinue IV fluids, Attestations Medical Necessity Statement*: Discharge tomorrow Coding Level of Care Code 47428 Moderate MDM includes number and complexity of problems actively addressed during encounter, amount and/or complexity of data reviewed/ordered and described risk of complication, morbidity or mortality of management as d ocumented Diagnoses AMS (altered mental status) R41.82 Posterior circulation stroke I63.50 Sinus tachycardia R00.0 Herniated nucleus pulposus, L3-4 left M51.26 GERD (gastroesophageal reflux disease) K21.9 Diabetes mellitus E11.9 Degenerative lumbar disc M51.36
[2023-05-30 11:30] LABS: Adenovirus Not Detected (NOT DETECT); Chlamydia Pneumoniae Not Detected (NOT DETECT); Coronavirus 229E,HKU1,NL63,OC4 Not Detected (NOT DETECT); Human Metapneumovirus Not Detected (NOT DETECT); Human Rhinovirus/Enterovirus Not Detected (NOT DETECT); Influenza A Not Detected (NOT DETECT); Influenza A H1 Not Detected (NOT DETECT); Influenza A H1-2009 Not Detected (NOT DETECT); Influenza A H3 Not Detected (NOT DETECT); Influenza B Not Detected (NOT DETECT); Mycoplasma Pneumoniae Not Detected (NOT DETECT); Parainfluenza Virus Type 1 Not Detected (NOT DETECT); Parainfluenza Virus Type 2 Not Detected (NOT DETECT); Parainfluenza Virus Type 3 Not Detected (NOT DETECT); Parainfluenza Virus Type 4 Not Detected (NOT DETECT); Respiratory Syncytial Virus A Not Detected (NOT DETECT); Respiratory Syncytial Virus B Not Detected (NOT DETECT); SARS-COV-2 Not Detected (NOT DETECT)
[2023-05-30] MEDS: metoprolol tartrate 25 mg Tablet 12.5 MG PO ×2 (11:47→22:01)
--- NOTE | 2023-05-30 14:34 | PC.NURSE ---
Verified order for oxycodone with Dr. Priest due to patient listing morphine as allergy, okayed order.
--- NOTE | 2023-05-30 14:43 | PC.NURSE ---
Corado catheter removed. Patient tolerated well. Patient instructed to use call light before getting up to bed side commode, verbalized understanding.
[2023-05-30] MEDS: lactated ringers 1,000 ML 75 ML IV (18:45)
--- NOTE | 2023-05-30 19:44 | P.PNCC_ITS ---
Stroke Alert Activation ED Arrival Date: 05/29/23 ED Arrival Time: 21:17 Last Known Normal/at Baseline: < 1 hour ago Other Last Known Well Infomation: This patient arrived at 2116 with receptive aphasia/altered mental status and s troke alert was called I believe by Dr. Baca. I was notified and called immediately and talked with the nurse, who told me that the patient's onset of symptoms occurred within the hour and that she was already in CAT scan with Dr. Baca. I asked that they prepare to bring me in on telestroke through [facility] and that was done as soon as she came back from CAT scan. Dr. Baca talked with me and described what sounded like receptive aphasia and I advised that we would need to check her visual stewart. We did that together on telestroke and it was apparent that she had a right homonymous hemianopsia that she was not attending to stimuli on the right. She had word salad and was not following commands. She had no motor deficit. She had no previous history of stroke, was not on a blood thinner and her blood pressure was controlled. Her blood sugar was not out of range. The patient's daughter was present at the bedside to confirm that her symptom onset was abrupt and witnessed 1 hour prior to arrival. We agreed to give tPA and that order was given while I was doing further exam. I gave her daughter a chance to ask questions. The patient was able to comprehend some part of that discussion but was not competent to give a full permission. CT scan of the head was normal. It looks like her bolus was given at 2249 but that cannot be correct because the order was given right around 0 so I presume I am not finding the bolus record. I see to note from the MAR indicating bolus and infusion at 2249 which would mean that more than an hour elapsed from the order until the admini stration of medication. I do not believe that is correct. I educated the patient but more her daughter that this was a posterior branch left middle cerebral artery stroke causing receptive aphasia and loss of vision to the right side of the world. I gave her daughter Solange a chance to ask questions. I talked with Dr. Baca and planned for ICU admission after tPA. The benefits of tPA and risks were discussed in detail with the patient and her daughter. Stroke Alert Activated by: not sure if ems or dr. Baca Stroke Alert Activation Time: 21:17 Stroke MD @ Bedside Date: 05/29/23 Stroke MD @ Bedside Time: 21:18 NIH Stroke Scale Time: 21:30 NIH stroke score NIHSS: Level Of Consciousness - 1a: 2 Level Of Consciousness Questions - 1b: Neither Correct Level Of Consciousness Commands - 1c: Neither Correct Best Gaze - 2: Normal Visual Stewart - 3: Partial Hemianopia Facial Palsy - 4: Normal Motor Arm Right - 5: No Drift Motor Arm Left - 5: No Drift Motor Leg Right - 6: No Drift Motor Leg Left - 6: No Drift Limb Ataxia - 7: Absent Sensory - 8: Normal Best Language - 9: Mild/Moderate Aphasia Dysarthia - 10: Normal Extinction And Inattention - 11: 0 Score: Total Score: 8 Stroke Alert Data/Treatment Time to CT of Head: 21:17 CT Results Date: 05/29/23 CT Results Time: 22:16 CT Impression: No acute changes by Dr. Baca and my review. Diffuse white matter disease diagnosed by radiology Stroke Risk Factors: hypertension tPA Started Date: 05/29/23 tPA Started Time: tPA Started - Time: 23:45 (i hope this is not correct) Patient & Family Educated on: Cause of Stroke, Treament Plan and tPA Risks/Benefits Other Patient & Family Education: Because of stroke, treatment Other Information: I have not sure of the time of tPA administration and this will be further investigated Critical Care Time Critical Care Time: less than 30 mins Coding Level of Care Code Acute Code for Chg Fwd Diagnoses
[2023-05-30] MEDS: atorvastatin 40 mg Tablet PO (22:03)
--- NOTE | 2023-05-30 23:35 | USCV_ITS ---
Desiree Sandra Age: 67 Gender: F : 1955 Exam Date: 05/30/2023 14:47 Ordering Phys: Rodríguez Ware MD Technologist: Eddie Araujo [place] [facility] [place]: cva BP: 123 / 73 HR: 94 Rhythm: Sinus Technical Quality: MEASUREMENTS (Male / Female) Normal Values 2D ECHO LV Diastolic Diameter PLAX 3.6 cm 4.2 - 5.9 / 3.9 - 5.3 cm LV Systolic Diameter PLAX 2.1 cm IVS Diastolic Thickness 1.1 cm 0.6 - 1.0 / 0.6 - 0.9 cm IVS Systolic Thickness 1.1 cm LVPW Diastolic Thickness 1.3 cm 0.6 - 1.0 / 0.6 - 0.9 cm LVPW Systolic Thickness 1.6 cm LVOT Diameter 2.1 cm LV Ejection Fraction 2D Teich 72.5 % LV Ejection Fraction MOD 2C 60.2 % LV Ejection Fraction 2C AL 60.7 % LA Diameter 3.9 cm M-MODE Aortic Annulus Diameter 2.9 cm LA Ao Ratio MM 1.4 MV E Point Septal Separation 0.8 cm DOPPLER AV Peak Velocity 267.7 cm/s LVOT Peak Velocity 95.0 cm/s AV Area Cont Eq vti 1.1 cm squared AV Area Cont Eq pk 1.2 cm squared MV Area PHT 5.0 cm squared Mitral E to A Ratio 0.7 MV E' Velocity 67.0 cm/s Mitral E to MV E' Ratio 24.3 Mitral E to LV E' Lateral Ratio 23.4 Mitral E to LV E' Septal Ratio 25.2 TR Peak Velocity 176.0 cm/s TR Peak Gradient 12.4 mmHg TV Peak E Velocity 134.0 cm/s Right Atrial Pressure 3.0 mmHg Pulmonary Artery Systolic Pressu 15.4 mmHg RV Acceleration Time 0.1 s FINDINGS Left Ventricle Left ventricle is normal in size. LV systolic function is normal with EF of 60 to 65%. No regional wall motion abnormalities are seen. Right Ventricle Grossly normal Right Atrium Not well visualized Left Atrium Grossly normal in size Mitral Valve Structurally normal mitral valve. Aortic Valve Grossly calcified. Mild to moderate aortic stenosis with aortic valve area of 1.1 cm squared and mean gradient across aortic valve of 15 mmHg. Moderate aortic regurgitation Tricuspid Valve Mild tricuspid regurgitation. Insufficient TR jet to calculate RVSP Pulmonic Valve Not well visualized Pericardium Normal Aorta Normal in size IVC Not well visualized CONCLUSIONS LV systolic function is normal with EF of 60 to 65%. Mild to moderate aortic stenosis. Moderate aortic regurgitation. Mild tricuspid regurgitation Compared to prior echocardiogram from 2021, patient is noted to have mild to moderate aortic stenosis and moderate aortic regurgitation. Kayode Lee MD (Electronically Signed) Final Date: 30 May 2023 17:04 S
[2023-05-31] VITALS (19 sets, daily range): BP systolic 129–179; BP diastolic 58–81; PULSE 92–110; RESP 15–26; TEMP 36.3–36.6; O2SAT 85–96
[2023-05-31 04:05] LABS: Basophils # 0.1 10^3/uL (0.0-0.1); Basophils % 0.6 %; Eosinophils # 0.3 10^3/uL (0.0-0.8); Eosinophils % 3.3 %; Hematocrit 35.4 % (36-47); Lymphocytes # 3.5 10^3/uL (0.8-4.8); Lymphocytes % 42.8 %; Mean Corpuscular HGB Conc 30.2 g/dL (30-55); Mean Corpuscular Hemoglobin 24.4 pg (27-33); Mean Corpuscular Volume 80.8 fl (85-98); Mean Platelet Volume 11.4 fL (7.4-10.4); Monocytes # 0.6 10^3/uL (0.2-0.9); Monocytes % 7.8 %; Neutrophils # 3.74 10^3/uL (1.8-7.7); Neutrophils % 45.4 %; Nucleated Red Blood Cells % 0 %; Platelet Count 378 10^3/cmm (157-399); Red Blood Count 4.38 10^6/uL (3.85-5.65); Red Cell Distribution Width 17.9 % (12.1-15.1); White Blood Count 8.23 10^3/uL (3.29-11.43)
[2023-05-31 04:29] LABS: D Dimer 6.15 ug/mLFEU (0-0.59)
[2023-05-31 04:32] LABS: Anion Gap 15.5 (5-19); Blood Urea Nitrogen 13 mg/dL (8-23); Calcium 9.3 mg/dL (8.5-10.5); Carbon Dioxide 26 mmol/L (22-29); Chloride 103 mmol/L (98-107); Glucose 103 mg/dL (65-115); Osmolality Calculated 290 mOsm/kg (285-295); Potassium 4.5 mmol/L (3.5-5.1); Sodium 140 mmol/L (136-145)
--- NOTE | 2023-05-31 07:10 | USCV_ITS ---
Sandra Ramírez Age: 67 Gender: F : 1955 Exam Date: 05/31/2023 07:44 Ordering Phys: Cortney Priest MD Technologist: Eddie Araujo [place] [facility] [place]: swelling PROCEDURES: The venous duplex Doppler examination of both lower extremities was performed in the standard fashion. The following venous structures were evaluated: common femoral vein, profunda vein, proximal portion of the greater saphenous vein, superficial femoral vein, and the popliteal vein. FINDINGS: Normal 2-D Doppler and augmentation and compressibility throughout the lower extremity venous structures. Additional imaging through the proximal calf veins also reveals no thrombus. Limited evaluation of the greater saphenous vein is patent with no thrombus. CONCLUSIONS No DVT bilateral lower extremities. Dr. Glory De Luna DO (Electronically Signed) Final Date: 31 May 2023 08:48 S
--- NOTE | 2023-05-31 07:10 | CT_ITS ---
WS: [id number] CT CHEST ANGIOGRAPHY WITH REFORMATS HISTORY: Elevated D-dimer, short of breath. TECHNIQUE: Contiguous axial images are obtained through the chest during arterial injection of intrav enous contrast. Images are reconstructed to evaluate the pulmonary arteries. MIP imaging also reviewe d. All CT scans at [facility] use at least one of these dose optimization techniques: automat ed exposure control; mA and/or kV adjustment per patient size (includes targeted exams where dose is matched to clinical indication); or iterative reconstruction. CONTRAST: Omnipaque 350; 100 mL IV. DLP: 362.68 mGy.cm COMPARISON: 07/13/2022 Good enhancement of the pulmonary artery. There are no filling defects or pulmonary emboli. Mild athe rosclerosis aorta. Intimal thickening and calcified plaque is scattered throughout the aorta. No diss ection or aneurysm. Heart is moderately enlarged. Mild LEFT ventricular hypertrophy. No pericardial o r pleural effusions. There is diffuse hazy attenuation of groundglass attenuation throughout the lungs. No focal consolida tions. No mass. Mildly prominent LEFT hilar lymphoid tissue. No adenopathy. No adrenal mass. Small hi atal hernia. Mild hepatic steatosis is visualized. IMPRESSION: 1. No pulmonary embolism. 2. No adenopathy. 3. Mild atherosclerosis aorta. 4. Mild hazy attenuation in interstitial thickening throughout the lungs. Similar to most recent exam s. Consider mild chronic fluid overload and hypersensitivity pneumonitis. 5. Moderate cardiomegaly.
--- NOTE | 2023-05-31 08:25 | CT_ITS ---
WS: [id number] CT ANGIOGRAM CEREBRAL AND CAROTID ARTERIES HISTORY: CVA TECHNIQUE: CT angiogram is performed of the carotid and cerebral arteries. During arterial injection imaging is obtained from the skull vertex to the aortic arch in 1.25 mm imaging. Coronal and sagittal reformats are submitted. Additional multi planar reformats of the carotid and cerebral arteries are submitted, MIP imaging also reviewed. NASCET criteria utilized. All CT scans at [facility] us e at least one of these dose optimization techniques: automated exposure control; mA and/or kV adjust ment per patient size (includes targeted exams where dose is matched to clinical indication); or iter ative reconstruction. CONTRAST: Omnipaque 350; 100 mL IV. DLP: 967.66 mGy.cm COMPARISON: Noncontrast CT head 05/30/2023. Noncontrast CT head. CTA head is limited as recent contrast has been injected for CT of the pulmonary arteries. There is enhancement. No acute blood products are identified. The areas of enhancement may obscure small areas of hemorrhage. Carotid Angiogram: Right carotid: Common carotid artery: Arises normally from the innominate artery. Minimal plaque with no stenosis. Internal carotid artery: No plaque or stenosis. External carotid artery: Patent. Left carotid: Common carotid artery: Arises normally from the aorta. No significant plaque or stenosis. Internal carotid artery: Mild plaque at the bifurcation with no high-grade stenosis. External carotid artery: Patent. Right vertebral artery: Dominant. Left vertebral artery: Small caliber but patent. Subclavian arteries: Origin of the LEFT subclavian is poorly visualized by breathing motion artifact. There is some plaque at the origin. Upper thorax: Normal. Thyroid gland: Normal. Osseous structures: Moderate spondylitic changes in the cervical spine. CEREBRAL ANGIOGRAM: Intracranial vertebral arteries: Normal with no significant atherosclerosis. Basilar artery: No significant stenosis or occlusion. No aneurysm. Intracranial Internal carotid arteries: Moderate calcified plaque through the cavernous segments of t he carotid arteries. No occlusions. No aneurysm. Middle cerebral arteries: Normal. Anterior cerebral arteries and ACOM: Normal. Posterior cerebral arteries and PCOM's: Normal. Dural venous sinuses are normally enhancing. Mastoid air cells: Normal. Paranasal sinuses: Normal. Calvarium: Normal. IMPRESSION: 1. Mild atherosclerotic plaque in the cervical carotid arteries. Less than 50% stenosis. 2. Mild atherosclerotic plaque cavernous portions of the intracranial carotid arteries. 3. No aneurysms or significant atherosclerotic plaque within the [place].
--- NOTE | 2023-05-31 08:26 | P.DS_ITS ---
Discharge Providers Date of Admission: 05/29/23 22:31 Date of Discharge: May 31, 2023 Attending Provider at Admission: Rodríguez Ware Attending Provider at Discharge: Corteny Priest MD Primary Care Provider: Eugene Bo MD Diagnoses at Discharge Discharge Diagnosis (1) AMS (altered mental status): Status: Acute (2) Posterior circulation stroke: Status: Acute (3) Sinus tachycardia: Status: Acute (4) Herniated nucleus pulposus, L3-4 left: Status: Acute (5) GERD (gastroesophageal reflux disease): Status: Acute (6) Diabetes mellitus: Status: Acute (7) Degenerative lumbar disc: Status: Acute Reason for Visit Reason for Visit: AMS Hospital Course Hospital Course 67-year female with history of back pain status post intervention, active smoker, presented to the hospital with chief complaint of receptive aphasia/altered mental status stroke alert was called, patient was within tPA window she present to the hospital within an hour patient is stating that she was playing cards with her friends and all of a sudden these changes were noticed by her friend who called EMS and notified her daughter. tPA was administered, Dr. Oconnell attended the code stroke called. Patient was admitted to the ICU for post tPA management, other than tachycardia she had no other abnormality in her vitals, CBC BMP normal. She did not respond to IV fluids at all she is still showing sinus tachycardia metoprolol was added, I requested D-dimer as per the work-up for sinus tachycardia because she did not respond to IV fluids. D-dimer came back around 6 I have requested CTA chest head and neck and venous Doppler to rule out PE, thromboembolic phenomenon. Please note her repeat CT head was requested by the admitting physician when patient started vomiting after getting opioids, patient is stating that she does get this response after getting opioids her medications were readjusted which improved her nausea and vomiting symptoms. Echo is unremarkable. COVID PCR negative. She does appear anxious nicotine patch was applied, anxiolytics were resumed. She will get dual antiplatelet therapy for 20 days and then she will continue aspirin and atorvastatin. Concern for posterior branch of left middle cerebral artery stroke, as per Dr. Oconnell posterior circulation stroke is unlikely. Physical Exam Urinary Catheter Management: [place]: Cath Placed During This Visit: yes, but has since been removed by the nurse Reason for Continuing Indwelling Catheter: Decision to DC Catheter Urinary Catheter Date of Insertion: 05/29/23 Urinary Catheter Time of Insertion: 22:10 Date Urinary Catheter Removed: 05/30/23 Time Urinary Catheter Discontinued: 14:15 Discharge Data Studies Completed and Pending Completed Studies During Hospitalization Category Date Time Status CT head wo con* [id number] Stat Cat Scan 05/29/23 21:[address] head wo con* [id number] Stat Cat Scan 05/30/23 01:58 Completed XR chest 1V portable [id number] Stat Exams 05/29/23 21:27 Completed CV carotid duplex BI* [id number] Routine Ultrasound 05/30/23 06:00 Completed CV. echo w/w bubble cont [id number] Routine Ultrasound 05/30/23 23:35 Completed Pending at discharge Category Date Time Status CT head wo con* [id number] Routine Cat Scan 05/31/23 22:00 Stop Req CTA PE [CT angio chest PE protcl [id number]] Routine Cat Scan 05/31/23 07:10 Ordered CTA head neck [CT angio headneck* [id number]] Routine Cat Scan 05/31/23 08:25 [place] [id number] Routine Ultrasound 05/31/23 07:10 Taken Radiology Impressions Chest X-Ray 05/29/23 21:27 IMPRESSION: 1. Cardiomegaly. 2. Bibasilar atelectasis versus minimal infiltrate. 3. Mild interstitial edema. Head CT 05/30/23 01:58 IMPRESSION: No evidence of acute intracranial hemorrhage, mass effect, or edema. No change from prior exam. Laboratory Results WBC 8.23 10^3/uL (3.29-11.43) 05/31/23 03:35 RBC 4.38 10^6/uL (3.85-5.65) 05/31/23 03:35 Hgb 10.70 g/dL (11.27-16.99) L 05/31/23 03:35 Hct 35.4 % (36-47) L 05/31/23 03:35 MCV 80.8 fl (85-98) L 05/31/23 03:35 MCH 24.4 pg (27-33) L 05/31/23 03:35 MCHC 30.2 g/dL (30-55) 05/31/23 03:35 RDW 17.9 % (12.1-15.1) H 05/31/23 03:35 Plt Count 378 10^3/cmm (157-399) 05/31/23 03:35 MPV 11.4 fL (7.4-10.4) H 05/31/23 03:35 Neut % (Auto) 45.4 % 05/31/23 03:35 Lymph % (Auto) 42.8 % 05/31/23 03:35 Mason % (Auto) 7.8 % 05/31/23 03:35 Eos % (Auto) 3.3 % 05/31/23 03:35 Baso % (Auto) 0.6 % 05/31/23 03:35 Neut # (Auto) 3.74 10^3/uL (1.8-7.7) 05/31/23 03:35 Lymph # (Auto) 3.5 10^3/uL (0.8-4.8) 05/31/23 03:35 Mason # (Auto) 0.6 10^3/uL (0.2-0.9) 05/31/23 03:35 Eos # (Auto) 0.3 10^3/uL (0.0-0.8) 05/31/23 03:35 Baso # (Auto) 0.1 10^3/uL (0.0-0.1) 05/31/23 03:35 Nucleated RBC % (auto) 0 % 05/31/23 03:35 Nucleated RBCs # 0.0 /100WBC 05/31/23 03:35 PT 13.30 SECONDS (12.1-14.9) 05/29/23 21:30 INR 0.98 (0.8-1.2) 05/29/23 21:30 APTT 30.1 SECONDS (23.9-36.7) 05/29/23 21:30 D-Dimer 6.15 ug/mLFEU (0-0.59) H 05/31/23 03:35 Sodium 140 mmol/L (136-145) 05/31/23 03:35 Potassium 4.5 mmol/L (3.5-5.1) 05/31/23 03:35 Chloride 103 mmol/L (98-107) 05/31/23 03:35 Carbon Dioxide 26 mmol/L (22-29) 05/31/23 03:35 Anion Gap 15.5 (5-19) 05/31/23 03:35 BUN 13 mg/dL (8-23) 05/31/23 03:35 Creatinine 0.7 mg/dL (0.5-0.9) 05/31/23 03:35 GFR Calculation 83.0 mL/min (90-130) L 05/31/23 03:35 Glucose 103 mg/dL (65-115) 05/31/23 03:35 POC Glucose 127 mg/dL (70-110) H 05/29/23 21:28 Estimat Average Glucose 128 05/30/23 09:59 Hemoglobin A1c 6.1 % (4.0-6.0) H 05/30/23 09:59 Calculated Osmolality 290 mOsm/kg (285-295) 05/31/23 03:35 Calcium 9.3 mg/dL (8.5-10.5) 05/31/23 03:35 Magnesium 2.2 mg/dL (1.7-2.3) 05/29/23 21:30 Total Bilirubin 0.4 mg/dL (0.15-1.2) 05/29/23 21:30 AST 21 U/L (0-32) 05/29/23 21:30 ALT 21 U/L (0-33) 05/29/23 21:30 Alkaline Phosphatase 116 U/L (35-105) H 05/29/23 21:30 Troponin T Baseline 16 ng/L (0-10) H 05/29/23 21:30 Troponin T 120 Minute 18.91 ng/L (0-10) H 05/29/23 00:25 Delta Troponin T 2.91 ABS# (0-10) 05/29/23 00:25 Troponin T Hi Sens 6Hr 16.29 ng/L (0-10) H 05/30/23 09:59 Troponin T Hi Sens 6Hr Delta 0.29 ng/L (0-12) 05/30/23 09:59 C-Reactive Protein 3.0 mg/L (0.0-4.9) 05/29/23 21:30 Total Protein 7.8 g/dL (6.6-8.7) 05/29/23 21:30 Albumin 4.8 g/dL (3.5-5.2) 05/29/23 21:30 Globulin 3.0 g/dL (1.3-4.6) 05/29/23 21:30 Triglycerides 140 mg/dL (0-150) 05/30/23 09:59 Cholesterol 140 mg/dL (0-200) 05/30/23 09:59 LDL Cholesterol, Calc 81 mg/dL (50-129) 05/30/23 09:59 HDL Cholesterol 31 mg/dL (60-100) L 05/30/23 09:59 LDL/HDL Ratio 2.61 RATIO (0.00-3.22) 05/30/23 09:59 Cholesterol/HDL Ratio 4.52 mg/dL (0.0-4.40) H 05/30/23 09:59 TSH 3.65 uIU/mL (0.27-4.20) 05/29/23 21:30 Prolactin 29.41 ng/mL (4.8-23.3) H 05/29/23 21:30 Urine Color Yellow (Yellow) 05/29/23 21:36 Urine Appearance Sl hazy (CLEAR) A 05/29/23 21:36 Urine pH 5 (5-7) 05/29/23 21:36 Ur Specific [place] 1.025 (1.005-1.030) 05/29/23 21:36 Urine Protein Trace (Negative) 05/29/23 21:36 Urine Glucose (UA) Norm (Normal) 05/29/23 21:36 Urine Ketones 1+ (Negative) H 05/29/23 21:36 Urine Blood Neg (Negative) 05/29/23 21:36 Urine Nitrate Negative (Negative) 05/29/23 21:36 Urine Bilirubin Neg (Negative) 05/29/23 21:36 Urine Urobilinogen 1 mg/dL (Negative) H 05/29/23 21:36 Ur Leukocyte Esterase Trace (Negative) H 05/29/23 21:36 Urine RBC None /hpf (0-2) 05/29/23 21:36 Urine WBC 0-4 /hpf (0-5) H 05/29/23 21:36 Ur Squamous Epith Cells 10-15 /hpf (0-5) H 05/29/23 21:36 Amorphous Sediment Not Reportable 05/29/23 21:36 Urine Bacteria 1+ /hpf (NONE) H 05/29/23 21:36 Urine Mucus 2+ /hpf 05/29/23 21:36 Nasal Influ A H1 2009 PCR Not detected (NOT DETECT) 05/30/23 09:05 Urine Opiates Screen Negative ng/mL (Negative) 05/29/23 21:36 Ur Barbiturates Screen Negative ng/mL (Negative) 05/29/23 21:36 Ur Phencyclidine Scrn Negative ng/mL (Negative) 05/29/23 21:36 Ur Amphetamines Screen Negative ng/mL (Negative) 05/29/23 21:36 U Benzodiazepines Scrn Positive ng/mL (Negative) H 05/29/23 21:36 Urine Cocaine Screen Negative ng/mL (Negative) 05/29/23 21:36 U Marijuana (THC) Screen Negative ng/mL (Negative) 05/29/23 21:36 Adenovirus (PCR) Not detected (NOT DETECT) 05/30/23 09:05 C. pneumoniae DNA (PCR) Not detected (NOT DETECT) 05/30/23 09:05 Coronavirus 229E (PCR) Not detected (NOT DETECT) 05/30/23 09:05 Human Metapneumovir PCR Not detected (NOT DETECT) 05/30/23 09:05 Influenza A (H1) PCR Not detected (NOT DETECT) 05/30/23 09:05 Influenza A (H3) PCR Not detected (NOT DETECT) 05/30/23 09:05 Influenza Type A (PCR) Not detected (NOT DETECT) 05/30/23 09:05 Influenza Type B (PCR) Not detected (NOT DETECT) 05/30/23 09:05 M. pneumoniae (PCR) Not detected (NOT DETECT) 05/30/23 09:05 Parainfluenza 1 (PCR) Not detected (NOT DETECT) 05/30/23 09:05 Parainfluenza 2 (PCR) Not detected (NOT DETECT) 05/30/23 09:05 Parainfluenza 3 (PCR) Not detected (NOT DETECT) 05/30/23 09:05 Parainfluenza 4 (PCR) Not detected (NOT DETECT) 05/30/23 09:05 RSV Type A (PCR) Not detected (NOT DETECT) 05/30/23 09:05 RSV Type B (PCR) Not detected (NOT DETECT) 05/30/23 09:05 Entero/Rhino (PCR) Not detected (NOT DETECT) 05/30/23 09:05 SARS-CoV-2 (PCR) Not detected (NOT DETECT) 05/30/23 09:05 Vitals Last Vital Signs Temp 98.3 F 05/30/23 23:00 Pulse 101 H 05/31/23 06:00 Resp 23 H 05/31/23 06:00 BP 179/68 05/31/23 06:00 Pulse Ox 90 05/31/23 06:00 O2 Del Method Room Air 05/30/23 18:00 O2 Flow Rate 1 05/30/23 11:00 Discharge Plan Discharge Patient Disposition: Home Condition: Stable Prescriptions: New clopidogrel [Plavix] 75 mg tablet 75 mg PO DAILY Qty: 20 0RF metoprolol tartrate 25 mg tablet 25 mg PO BID Qty: 60 4RF atorvastatin 40 mg Tablet 40 mg PO BEDTIME Qty: 90 3RF aspirin 81 mg tablet,delayed release (DR/EC) 81 mg PO DAILY Qty: 90 3RF Continued (DME) walker [facility] [place] See Rx Instructions .Route Qty: 1 0RF Rx Instructions: As directed cyclobenzaprine 10 mg tablet 10 mg PO TID PRN (Reason: muscle spasm) Qty: 90 5RF Hold Instructions: Adverse Reaction acetaminophen-codeine 300-30 mg tablet 1 tab PO Q8H PRN (Reason: pain) Qty: 60 3RF (DME) [facility] True Matrix Meter to use once daily See Rx Instructions .Route .MEDSUPPLY Qty: 1 0RF Rx Instructions: use once daily with strips levothyroxine [Synthroid] 25 mcg tablet 25 mcg PO DAILY Qty: 90 11RF (DME) True Metrix Glucose Test Strip Strip See Rx Instructions .Route Qty: 100 11RF Rx Instructions: once a day, please provide lancets as well (DME) blood-glucose meter [True Metrix Glucose Meter] [facility] [place] See Rx Instructions .Route Qty: 1 5RF Rx Instructions: As directed (DME) Bone Growth Stimulator E0748 See Rx Instructions .Route .MEDSUPPLY Qty: 1 0RF Rx Instructions: As directed buspirone 15 mg tablet See Rx Instructions .ROUTE .COMPLEX Qty: 180 3RF Dose Instruction: TAKE 1 TABLET TWICE DAILY FOR ANXIETY Rx Instructions: TAKE 1 TABLET TWICE DAILY FOR ANXIETY alprazolam 0.25 mg tablet 0.25 mg PO TID PRN (Reason: anxiety) Qty: 90 0RF gabapentin 300 mg capsule See Rx Instructions .ROUTE .COMPLEX Qty: 450 0RF Dose Instruction: TAKE 3 CAPSULES EVERY NIGHT AND TAKE 2 CAPSULES IN THE MORNING Rx Instructions: TAKE 3 CAPSULES EVERY NIGHT AND TAKE 2 CAPSULES IN THE MORNING albuterol sulfate 90 mcg/actuation HFA aerosol inhaler 2 puff INHALATION QID PRN (Reason: Shortness Of Breath) Qty: 8.5 12RF omeprazole 20 mg capsule,delayed release(DR/EC) See Rx Instructions .ROUTE .COMPLEX Qty: 180 3RF Dose Instruction: TAKE 1 CAPSULE TWICE DAILY Rx Instructions: TAKE 1 CAPSULE TWICE DAILY meloxicam 15 mg tablet See Rx Instructions .ROUTE .COMPLEX Qty: 90 10RF Dose Instruction: TAKE 1 TABLET EVERY DAY WITH FOOD FOR ARTHRITIS OR TENDONITIS Rx Instructions: TAKE 1 TABLET EVERY DAY WITH FOOD FOR ARTHRITIS OR TENDONITIS acetaminophen [Tylenol Extra Strength] 500 mg Tablet 500 - 1,000 mg PO Q6H PRN (Reason: Pain) Discontinued metoprolol succinate 50 mg tablet extended release 24 hr 50 mg PO DAILY Qty: 30 11RF simvastatin 20 mg tablet See Rx Instructions .ROUTE .COMPLEX Qty: 90 3RF Dose Instruction: TAKE 1 TABLET EVERY DAY Rx Instructions: TAKE 1 TABLET EVERY DAY Discharge Orders: Discharge Order (Routine); Ordered 05/31/23 Ordered By: Cortney Priest Referrals: Racheal Oconnell MD [Physician] - 1 week Eugene Bo MD [Primary Care Provider] - Discharge Diet: Advance as tolerated Discharge Activity: Increase activity as tolerated Patient Instructions: Hyponatremia (ED), Benzodiazepine Use Disorder (ED), Dementia (ED), Non-diabetic Hypoglycemia (ED), Hypoglycemia in a Person with Diabetes (ED), Concussion (ED), Alcohol Intoxication (ED), Subarachnoid Hemorrhage (GEN), Altered Mental Status (ED), Opioid Safety Discharge Attestations Time Spent in Discharge Care*: greater than 30 min Quality Metrics Clinical Quality Measures [ No reported AMI, CVA or VTE this stay] Coding Level of Care Code Acute Code for Chg Fwd Diagnoses AMS (altered mental status) R41.82 Posterior circulation stroke I63.50 Sinus tachycardia R00.0 Herniated nucleus pulposus, L3-4 left M51.26 GERD (gastroesophageal reflux disease) K21.9 Diabetes mellitus E11.9 Degenerative lumbar disc M51.36
[2023-05-31] MEDS: metoprolol tartrate 25 mg Tablet 12.5 MG PO (08:51)
[2023-05-31] MEDS: oxyCODONE 5 mg IR Tab/Cap PO (08:53)
[2023-05-31] MEDS: BuSPIRONE 10 mg Tablet 15 MG PO (08:54)
[2023-05-31] MEDS: levothyroxine 25 mcg Tablet PO (08:54)
[2023-05-31] MEDS: pantoprazole 40 mg SDV IVP (08:55)
[2023-05-31] MEDS: nicotine 21 mg Patch 1 PATCH TRANSDERMA (09:22)
[2023-05-31] MEDS: iohexol 350 mg/mL 500 mL Btl (per mL) IV ×2 (10:05→12:23)
[2023-05-31] MEDS: ondansetron 2 mg/ML SDV 2 mL 4 MG IVP (10:23)
--- NOTE | 2023-05-31 12:33 | PC.SOCIAL ---
Pg 2 IMM Explained to pt Pg 2 IMM. No questions voiced. Provided pt a copy. Initialed, dated, & timed a copy & placed in chart.
--- NOTE | 2023-05-31 14:20 | PC.NURSE ---
CT for PE and CTA of head and neck now completed and read. Ok to continue with DC per Dr Priest.
--- NOTE | 2023-05-31 14:21 | PC.NURSE ---
Daughter, Boy Foley notified patient to be discharged today.
--- NOTE | 2023-05-31 16:15 | PC.NURSE ---
Still awaiting family to arrived for patient discharge.
--- NOTE | 2023-05-31 17:00 | PC.OT ---
PER NURSING; PATIENT IS SCHEDULED FOR D/C THIS EVENING. NO EVAL AT THIS TIME.
--- NOTE | 2023-05-31 17:35 | PC.NURSE ---
Discharge instructions: Stroke stop light, follow-up appts, medications, smoking cessation, stroke and diabetes , provided and discussed with patient and daughter. All questions answered. Reminded pt to remove the nicotine patch if she did start smoking. Pt still slightly nauseated but want to continue with discharge and go home.
== END 2023-05-31 17:20 | disposition home health service (06) ==
LOC: ER 22:31 → ICU 05-30 02:24
PROVIDERS: Admitting Provider Internal Medicine; Emergency Provider Emergency Medicine; PCP Family Medicine; Visit Provider Internal Medicine
DX: I63.50 Cerebral infarction due to unspecified occlusion or stenosis of unspecified cerebral artery (principal); R29.700 NIHSS score 0; R00.0 Tachycardia, unspecified; M51.26 Other intervertebral disc displacement, lumbar region; K21.9 Gastro-esophageal reflux disease without esophagitis; E11.9 Type 2 diabetes mellitus without complications; M51.36 Other intervertebral disc degeneration, lumbar region; R60.0 Localized edema; I35.0 Nonrheumatic aortic (valve) stenosis; I35.1 Nonrheumatic aortic (valve) insufficiency; I07.1 Rheumatic tricuspid insufficiency; G93.41 Metabolic encephalopathy; E86.0 Dehydration; E03.9 Hypothyroidism, unspecified; F17.210 Nicotine dependence, cigarettes, uncomplicated
CPT/HCPCS: 36415; 36416; 51702; 70450; 70496; 70498; 71045; 71275; 80048; 80053; 80061; 80306; 81001; 82962; 83036; 83735; 84146; 84443; 84484; 85025; 85378; 85610; 85730; 86140; 87486; 87581; 87633; 92523; 92610; 93005; 93880; 93970; 96365; 96375; 96376; 97161; 97530; 99291; C8929; C9113; G0378; J1170; J2405; J2765; J2997; J3490; J7120; Q9967

== ENCOUNTER → 2023-06-14 11:57 | Outpatient (BNVA) | payer MEDICARE, MEDICAID, SELFPAY | PROVIDERS: PCP Family Medicine; Visit Provider Specialist | DX: Z09 Encounter for follow-up examination after completed treatment for conditions other than malignant neoplasm (principal); I63.512 Cerebral infarction due to unspecified occlusion or stenosis of left middle cerebral artery; R55 Syncope and collapse; R47.01 Aphasia; Z72.0 Tobacco use | CPT/HCPCS: 99205 ==

== ENCOUNTER → 2023-06-27 12:55 | Outpatient (BNVA) | payer MEDICARE, MEDICAID, SELFPAY | PROVIDERS: PCP Family Medicine; Visit Provider Orthopaedic Surgery | DX: Z98.1 Arthrodesis status (principal); Z47.89 Encounter for other orthopedic aftercare | CPT/HCPCS: 99213 ==

== ENCOUNTER 2023-07-11 10:54 | Outpatient (CLI) | payer MEDICARE, MEDICAID, SELFPAY ==
--- NOTE | 2023-07-11 11:45 | MR_ITS ---
WS: [id number] MRI HEAD WITHOUT CONTRAST TECHNIQUE: Sagittal T1, T2 axial, T2 axial FLAIR, axial and coronal T1 images, axial susceptibility w eighted imaging, axial diffusion weighted images, and coronal T2 images were obtained. CLINICAL INFORMATION: CVA COMPARISON: CT head 05/30/2023 and MRI 2006 FINDINGS: No evidence of restricted diffusion to suggest acute ischemia. Ventricular system and basal cisterns are patent. Mild small vessel changes. Mild parenchymal volume loss. Normal posterior fossa. Normal v ascular flow voids at the skull base. No extra-axial fluid collections. No evidence of mass or mass e ffect. Mild mucosal thickening in the paranasal sinuses. Mastoid air cells are well aerated. Normal p osterior nasopharynx. Small vessel changes in the melissa. No hemosiderin on the susceptibly weighted images. Normal optic chiasm and pituitary infundibulum. Mo derate symmetric atrophy temporal lobes and hippocampal formations. IMPRESSION: 1. No evidence of restricted diffusion to suggest acute ischemia. 2. Mild small vessel changes with mild parenchymal volume loss progressed compared to 2007. 3. Moderate symmetric atrophy temporal lobes and hippocampal formations. 4. No hemosiderin on the susceptibly weighted images.
== END 2023-07-11 10:55 | disposition home or self-care (01) ==
LOC: RAD 10:54
PROVIDERS: PCP Family Medicine; Visit Provider Family Medicine
DX: I63.9 Cerebral infarction, unspecified (principal); G31.89 Other specified degenerative diseases of nervous system
CPT/HCPCS: 70551

== ENCOUNTER 2023-08-29 20:00 | Outpatient (CLI) | payer MEDICARE, MEDICAID, SELFPAY | END 2023-08-29 20:01 | disposition home or self-care (01) | LOC: SLEEP 08-30 11:18 | PROVIDERS: PCP Family Medicine; Visit Provider Family Medicine | DX: R40.0 Somnolence (principal); R52 Pain, unspecified; Z53.09 Procedure and treatment not carried out because of other contraindication | CPT/HCPCS: 95810 ==

== ENCOUNTER → 2023-09-08 10:05 | Outpatient (BNVA) | payer MEDICARE, MEDICAID, SELFPAY | PROVIDERS: PCP Family Medicine; Visit Provider Specialist | DX: Z09 Encounter for follow-up examination after completed treatment for conditions other than malignant neoplasm (principal); I63.512 Cerebral infarction due to unspecified occlusion or stenosis of left middle cerebral artery | CPT/HCPCS: 99214 ==

== ENCOUNTER → 2023-09-26 13:53 | Outpatient (BNVA) | payer MEDICARE, MEDICAID, SELFPAY | PROVIDERS: PCP Family Medicine; Visit Provider Orthopaedic Surgery | DX: M53.3 Sacrococcygeal disorders, not elsewhere classified; Z98.1 Arthrodesis status | CPT/HCPCS: 72100; 99213 ==

== ENCOUNTER → 2023-11-16 13:37 | Outpatient (BNVA) | payer MEDICARE, MEDICAID, SELFPAY | PROVIDERS: PCP Family Medicine; Referring Provider Specialist; Visit Provider Internal Medicine | DX: R07.9 Chest pain, unspecified (principal); I48.92 Unspecified atrial flutter; R00.0 Tachycardia, unspecified; I35.0 Nonrheumatic aortic (valve) stenosis; I10 Essential (primary) hypertension; E78.5 Hyperlipidemia, unspecified; F17.200 Nicotine dependence, unspecified, uncomplicated; R94.31 Abnormal electrocardiogram [ECG] [EKG] | CPT/HCPCS: 93005; 99204 ==

== ENCOUNTER 2023-11-27 12:18 | Outpatient (CLI) | payer MEDICARE, MEDICAID, SELFPAY ==
--- NOTE | 2023-11-27 12:45 | USCV_ITS ---
Sandra Ramírez Age: 67 Gender: F : 1955 Exam Date: 11/27/2023 13:03 Ordering Phys: Kayode Lee M.D ([email or web address]) Technologist: CT Exam Location: [facility] – [place] Indication: as BP: 144 / 78 HR: 88 Rhythm: Sinus Technical Quality: Adequate MEASUREMENTS (Male / Female) Normal Values 2D ECHO LVOT Diameter 2.0 cm LV Ejection Fraction MOD 2C 58.8 % LV Ejection Fraction 2C AL 59.7 % LA Diameter 3.4 cm RA Systolic Volume 4C AL 17.3 ml RA Systolic Volume 4C MOD 16.6 ml LA Sys Volume AL 31.0 cm cubed LA Sys Volume Index AL 16.6 cm cubed/m squared Aorta at Sinotubular Diameter 2.2 cm IVC Diameter 1.4 cm M-MODE LA Ao Ratio MM 1.0 AV Cusp Separation MM 1.2 cm DOPPLER AV Peak Velocity 284.0 cm/s LVOT Peak Velocity 117.0 cm/s AV Area Cont Eq vti 1.4 cm squared AV Area Cont Eq pk 1.3 cm squared MV Peak Velocity 175.0 cm/s MV Area PHT 5.8 cm squared Mitral E to A Ratio 0.6 TR Peak Velocity 120.0 cm/s TR Peak Gradient 5.8 mmHg TV Peak E Velocity 82.0 cm/s Right Atrial Pressure 3.0 mmHg Pulmonary Artery Systolic Pressu 8.8 mmHg PV Peak Velocity 96.0 cm/s FINDINGS Left Ventricle Left ventricle is normal in size. LV systolic function is normal with EF of 55 to 60%. No regional wall motion abnormalities are seen. Grade 1 diastolic dysfunction Right Ventricle Normal in size and function Right Atrium Normal in size Left Atrium Normal in size Mitral Valve Mitral valve is thickened. No significant stenosis or regurgitation. Aortic Valve Aortic valve is thickened. Moderate aortic stenosis with aortic valve area 1.36 cm squared with a mean gradient of 18 mmHg. Moderate aortic regurgitation Tricuspid Valve Insufficient TR jet to evaluate RVSP. Pulmonic Valve Not well visualized Pericardium Trace pericardial effusion. Aorta Normal in size IVC Appears to be normal CONCLUSIONS LV systolic function is normal with EF of 55 to 60%. Grade 1 diastolic dysfunction. Moderate aortic stenosis. Moderate aortic regurgitation Trace pericardial effusion Compared to prior echocardiogram from 2022, no signifincat changes are seen Kayode Lee MD (Electronically Signed) Final Date: 09 Dec 2023 21:09 S
== END 2023-11-27 12:19 | disposition home or self-care (01) ==
LOC: RAD 12:19
PROVIDERS: PCP Family Medicine; Visit Provider Internal Medicine
DX: R06.02 Shortness of breath (principal)
CPT/HCPCS: 80053; 84146; 84443; 85025; 93306

== ENCOUNTER 2024-04-26 10:08 | Outpatient (CLI) | payer MEDICARE, MEDICAID, SELFPAY ==
--- NOTE | 2024-04-26 10:16 | MM_ITS ---
WS: [id number] Bilateral screening 3D tomosynthesis digital mammogram, 04/26/2024 10:17 AM Clinical Data: SCREENING Comparison: 03/20/2023, 01/06/2022, 02/12/2021, 02/12/2020, 11/24/2011, 11/01/2007, 10/03/2006. Findings: No spiculated masses or clustered calcifications are seen. There are no secondary signs of carcinoma . The breast parenchymal pattern shows fibroglandular tissue. There are lymph nodes in both axilla. MM/MM [facility] tomosynthesis [id number] Impression: Negative bilateral mammogram unchanged. Recommend annual screening mammograms. BIRADS: 1 - Negative. FOLLOW UP: 1 Month Follow-up DENSITY: The breasts are almost entirely fatty. The CAD apple checker was used
== END 2024-04-26 10:09 | disposition home or self-care (01) ==
LOC: RAD 10:10
PROVIDERS: PCP Family Medicine; Visit Provider Family Medicine
DX: Z12.31 Encounter for screening mammogram for malignant neoplasm of breast (principal); R92.333 Mammographic heterogeneous density, bilateral breasts
CPT/HCPCS: 77063; 77067

== ENCOUNTER → 2024-04-29 13:49 | Outpatient (BNVA) | payer MEDICARE, MEDICAID, SELFPAY | PROVIDERS: PCP Family Medicine; Visit Provider Family Medicine | DX: I10 Essential (primary) hypertension (principal); R00.0 Tachycardia, unspecified; E78.5 Hyperlipidemia, unspecified; E03.9 Hypothyroidism, unspecified; E11.9 Type 2 diabetes mellitus without complications | CPT/HCPCS: 80053; 80061; 84443 ==

== ENCOUNTER → 2024-08-15 13:52 | Outpatient (BNVA) | payer MEDICARE, MEDICAID, SELFPAY | PROVIDERS: PCP Family Medicine; Visit Provider Internal Medicine | DX: I35.0 Nonrheumatic aortic (valve) stenosis (principal); I10 Essential (primary) hypertension; E78.5 Hyperlipidemia, unspecified | CPT/HCPCS: 99214 ==

== ENCOUNTER 2024-08-20 10:56 | Outpatient (CLI) | payer MEDICARE, MEDICAID, SELFPAY ==
--- NOTE | 2024-08-20 11:15 | USCV_ITS ---
Sandra Ramírez Age: 68 Gender: F : 1955 Exam Date: 08/20/2024 11:30 Ordering Phys: Kayode Lee M.D ([email or web address]) Technologist: CT [place] [facility] [place]ication: BP: 90 / 64 HR: 70 Rhythm: Sinus Technical Quality: Adequate MEASUREMENTS (Male / Female) Normal Values 2D ECHO LVOT Diameter 2.0 cm LV Ejection Fraction MOD 4C 58.0 % LV Ejection Fraction MOD 2C 56.8 % LV Ejection Fraction 2C AL 58.0 % LA Diameter 3.4 cm RA Systolic Volume 4C AL 45.5 ml RA Systolic Volume 4C MOD 43.1 ml LA Sys Volume AL 36.1 cm cubed LA Sys Volume Index AL 19.1 cm cubed/m squared Aorta at Sinotubular Diameter 2.1 cm IVC Diameter 1.8 cm M-MODE LA Ao Ratio MM 1.1 AV Cusp Separation MM 1.2 cm DOPPLER AV Peak Velocity 261.0 cm/s LVOT Peak Velocity 104.0 cm/s AV Area Cont Eq vti 1.2 cm squared AV Area Cont Eq pk 1.3 cm squared MV Peak Velocity 114.0 cm/s MV Area PHT 2.9 cm squared Mitral E to A Ratio 1.3 TV Peak Velocity 259.8 cm/s TR Peak Velocity 355.5 cm/s TR Peak Gradient 50.6 mmHg TR Mean Velocity 238.0 cm/s TR Mean Gradient 26.8 mmHg TR Velocity Time Integral 95.0 cm TV Peak E Velocity 59.0 cm/s PV Peak Velocity 72.0 cm/s FINDINGS Left Ventricle Left ventricle is normal in size. LV systolic function is normal with EF of 55-60%. No regional wall motion abnormalities are seen. Grade 1 diastolic dysfunction. Right Ventricle Normal in size and function Right Atrium Normal in size Left Atrium Normal in size Mitral Valve Structurally normal mitral valve. Trace mitral regurgitation. Aortic Valve Aortic valve is thickened and calcified. Mild to moderate aortic stenosis with aortic valve area 1.23cm squared and mean gradient of 13 mmHg. Mild to moderate aortic regurgitation Tricuspid Valve Mild tricuspid regurgitation. RVSP is 45 to 50 mmHg. This is consistent with moderate pulmonary hypertension. Pulmonic Valve Mild pulmonic regurgitation. Pericardium Trace pericardial effusion Aorta Normal in size IVC Appears to be normal CONCLUSIONS LV systolic function is normal with EF of 55-60%. Grade 1 diastolic dysfunction. Trace mitral regurgitation Mild to moderate aortic stenosis. Mild to moderate aortic regurgitation. Mild tricuspid regurgitation Moderate pulmonary hypertension Mild pulmonic regurgitation. Trace pericardial effusion Compared to prior echocardiogram from 2023, no significant changes are seen Kayode Lee MD (Electronically Signed) Final Date: 31 August 2024 13:35 S
== END 2024-08-20 10:57 | disposition home or self-care (01) ==
LOC: RAD 10:56
PROVIDERS: PCP Family Medicine; Visit Provider Internal Medicine
DX: I35.2 Nonrheumatic aortic (valve) stenosis with insufficiency (principal); I50.30 Unspecified diastolic (congestive) heart failure; I27.20 Pulmonary hypertension, unspecified
CPT/HCPCS: 93306

== ENCOUNTER → 2024-10-18 09:33 | Outpatient (BNVA) | payer MEDICARE, MEDICAID, SELFPAY | PROVIDERS: PCP Family Medicine; Visit Provider Family Medicine | DX: E78.5 Hyperlipidemia, unspecified (principal); I10 Essential (primary) hypertension; E03.9 Hypothyroidism, unspecified; R73.9 Hyperglycemia, unspecified | CPT/HCPCS: 80053; 80061; 83036; 85025 ==

== ENCOUNTER → 2025-01-22 07:44 | Outpatient (BNVA) | payer MEDICARE, MEDICAID, SELFPAY | PROVIDERS: PCP Family Medicine; Visit Provider Family Medicine | DX: N18.9 Chronic kidney disease, unspecified (principal); I10 Essential (primary) hypertension; R73.03 Prediabetes | CPT/HCPCS: 80053; 80061; 83036; 85025 ==

== ENCOUNTER → 2025-04-29 08:44 | Outpatient (BNVA) | payer MEDICARE, MEDICAID, SELFPAY | PROVIDERS: PCP Family Medicine; Visit Provider Family Medicine | DX: Z00.00 Encounter for general adult medical examination without abnormal findings (principal); I10 Essential (primary) hypertension; R73.09 Other abnormal glucose; E78.5 Hyperlipidemia, unspecified; E03.9 Hypothyroidism, unspecified | CPT/HCPCS: 80053; 80061; 83036; 84443; 85025 ==

== ENCOUNTER 2025-05-12 12:39 | Outpatient (CLI) | payer MEDICARE, MEDICAID, SELFPAY ==
--- NOTE | 2025-05-12 13:00 | MM_ITS ---
WS: [id number] BILATERAL 3D TOMOSYNTHESIS DIGITAL SCREENING MAMMOGRAPHY WITH CAD CLINICAL INFORMATION: screening HISTORY: Screening mammogram. No current complaints. COMPARISON: 2023 TECHNIQUE: Bilateral CC and MLO views. FINDINGS: Scattered fibroglandular densities bilaterally. No suspicious focal mass, asymmetry, calcifications, or architectural distortion. No evidence of malignancy. Vascular calcification. A few incidental benign calcifications. MM/MM [facility] tomosynthesis [id number] IMPRESSION: DENSITY: There are scattered areas of fibroglandular density. BI-RADS: 2 - Benign. FOLLOW UP: 1 Year Follow-up Recommend return to annual screening mammography.
--- NOTE | 2025-05-12 13:30 | XR_ITS ---
WS: [id number] SCREENING DEXA SCAN Respirics CLINICAL INFORMATION: screening COMPARISON: None. FINDINGS: The LEFT forearm bone mineral density measures 0.78. This corresponds to a T score score of -1.0 and Z score of 0.9. Left femoral neck bone mineral density measures 0.928 g/cm2. This corresponds to a T score of -0.6 and Z score of 0.5. Right femoral neck bone mineral density measures 0.936 g/cm2. This corresponds to a T score -0.6of and Z score of 0.6. Mean femoral neck bone mineral density measures 0.932 g/cm2. This corresponds to a T score of -0.6 and Z score of 0.6. XR/XR DEXA axial skeleton* [id number] IMPRESSION: Osteopenia LEFT forearm. Normal mineralization femoral necks. Patient's FRAX calculated 10 year probability for major osteoporotic fracture i s 20.8% and osteoporotic hip fracture is 5.9%. LEFT forearm bone density unchanged. Femoral neck bone density decreased -5.5%
== END 2025-05-12 12:40 | disposition home or self-care (01) ==
LOC: RAD 12:40
PROVIDERS: PCP Family Medicine; Visit Provider Family Medicine
DX: Z12.31 Encounter for screening mammogram for malignant neoplasm of breast (principal); Z13.820 Encounter for screening for osteoporosis; Z00.00 Encounter for general adult medical examination without abnormal findings; M85.80 Other specified disorders of bone density and structure, unspecified site; R92.323 Mammographic fibroglandular density, bilateral breasts; R92.1 Mammographic calcification found on diagnostic imaging of breast; M25.832 Other specified joint disorders, left wrist
CPT/HCPCS: 77063; 77067; 77080

== ENCOUNTER → 2025-05-15 13:25 | Outpatient (BNVA) | payer MEDICARE, MEDICAID, SELFPAY | PROVIDERS: PCP Family Medicine; Visit Provider Internal Medicine | DX: I35.0 Nonrheumatic aortic (valve) stenosis (principal); I10 Essential (primary) hypertension; E78.5 Hyperlipidemia, unspecified; R06.02 Shortness of breath; R07.9 Chest pain, unspecified | CPT/HCPCS: 99214 ==

== ENCOUNTER 2025-05-22 09:16 | Outpatient (CLI) | payer MEDICARE, MEDICAID, SELFPAY ==
--- NOTE | 2025-05-22 | ECG_ITS ---
[facility] Test Date: 2025-05-22 Pat Name: Sandra Ramírez Department: Room: Gender: Female Director Of Outpatient Services: : 1955 Requested By: Kayode Lee Order Number: [id number] Scott MD: Stalin Starkey M.D. Interpretive Statements Procedure: A total of 0.4 mg of Lexiscan was infused over 20 seconds. The stress phase was continued for a total of 5 minutes. Sestamibi was injected 20 seconds after the Lexiscan infusion. Findings:The patient's resting blood pressure was 122/44 with a heart rate of 78. After Lexiscan was given the patient's blood pressure gradually dropped to a low of 80/36 and the heart rate gradually increased to a maximum of 93 bpm. At the end of recovery the patient's blood pressure was 112/51 with a heart rate of 93 bpm. The resting EKG showed normal sinus rhythm with mild horizontal ST depressions diffusely. There was no significant change in the ST segments throughout the stress test. Conclusion: 1. Normal EKG response to Lexiscan infusion 2. No Lexiscan induced chest pain or cardiac arrhythmia. 3. Normal blood pressure and heart rate response. 4. Nuclear myocardial perfusion scan pending; see separate report. Electronically Signed On 05-22-2025 13:13:39 CDT by Stalin Starkey M.D. [email or web address]
[2025-05-22 10:00] VITALS: BMI 35.9
--- NOTE | 2025-05-22 10:03 | NMCV_ITS ---
NM ritchie perf SPECT r/s* [id number] Sandra Ramírez Age: 69 Gender: F : 1955 Exam Date: 05/22/2025 10:37 Ordering Phys: Kayode Lee M.D ([email or web address]) Technologist: ANDERSON Burgess Exam Location: [facility] Indications: cp STRESS TEST Please see separate stress test report in [facility] for full findings IMAGE PROTOCOL Rest/Stress 1 Lexiscan Day Radiopharmaceutical Dose (mCi) Administration Site Administered by Rest: Tc-99m 10.3 IV ANDERSON Burgess Stress:Tc-99m 32.7 IV ANDERSON Burgess Rest: 05/22/2025 60 Discovery 630 Stress: 05/22/2025 30 Discovery 630 Images obtained in supine and prone position. 0.4mg Lexiscan. SPECT RESULTS Technical Quality: Good Raw Data Analysis: Image Corrections: Summed Stress Score: 7 Summed Rest Score: 0 Summed Difference Score: 7 PERFUSION FINDINGS There is a medium sized area of moderately reduced tracer counts in the mid inferolateral wall that resolves on the resting images. FUNCTIONAL RESULTS (calculated via Gated SPECT) Stress Image LV EF (%): 77 Stress EDV (mL):81 TID: 1.03 Stress ESV (mL):19 FUNCTIONAL FINDINGS: There is normal left ventricular systolic function. IMPRESSIONS There is a medium sized area of moderate ischemia in the inferolateral wall. There is normal left ventricular systolic function. EF 77%. Stalin Starkey MD, FACC (Electronically Signed) Final Date: 22 May 2025 12:51 S
[2025-05-22 11:31] VITALS: BP 112/57; PULSE 93
== END 2025-05-22 09:17 | disposition home or self-care (01) ==
LOC: CDL 09:18
PROVIDERS: PCP Family Medicine; Visit Provider Internal Medicine
DX: R07.9 Chest pain, unspecified (principal); R94.39 Abnormal result of other cardiovascular function study
CPT/HCPCS: 36415; 78452; 93017; 96374; A9500; J2785

== ENCOUNTER 2025-06-11 08:51 | Outpatient (CLI) | payer MEDICARE, MEDICAID, SELFPAY ==
[2025-06-11] VITALS (54 sets, daily range): BP systolic 92–174; BP diastolic 39–145; PULSE 68–94; RESP 5–34; TEMP 36.7; O2SAT 83–100; BMI 36.1
--- NOTE | 2025-06-11 09:00 | XACV_ITS ---
Ht: 150 cm Wt: 81 kg BSA: 1.88 m2 Gender: Female : 1955 Any Known Allergies: Other Exam Priority: Routine Indication(s): - Abnormal nuclear perfusion study Procedure(s): Procedure Description: Diagnostic procedure Procedure Description: PCI procedure Procedure Description: Left Heart Catheterization Procedure Description: Drug Eluting Coronary Stent Procedure Description: PTCA Procedure Description: Miscellaneous Procedure Description: ACT Procedure Description: Coronary Angiography Procedure Description: Pressure Wire Lynn JUNIOR; Diagnostic Cath Status: Elective Diagnostic Findings * Indication for angiogram/PCI: Abnormal stress test, chest pain, abnormal IFR. * Left Main has no disease. * Left Anterior Descending has no disease. * Circumflex has no disease. * Mid Right Coronary Artery: obstructive 70% stenosis, MEGHAN: 3 flow, iFR performed: ratio is 0.9. * Coronary angiography shows right dominance. PCI Status: Elective PCI Indication: New Onset Angina <= 2 months Interventional Findings * Mid Right Coronary Artery: 70% stenosis treated with a AB TREK 3.00X12 RX BALLOON, AYUSH Castro GEMA 4.0X15 ATIF, and MDUna MUÑIZ EUPHORA RX [id number] BALLOON. 70% residual stenosis, MEGHAN: 3 flow. Conclusions 1. There is obstructive coronary artery disease with one vessel disease. 2. Mid Right Coronary Artery was treated with a Balloon, Drug Eluting Stent, and Balloon. Recommendations * 1-Return to inpatient for close monitoring and routine cath care 2-Risk factor modification for secondary prevention 3-Statin and aspirin 81 mg life-long, if tolerated 4-Patient was pre-loaded with 600 mg of Plavix, continue Plavix 75mg p.o. daily for at least one year. We will assess at the end of one year again to continue if further or not 5-Continue optimal medical management 6-Follow up with Dr. Bailey in four weeks and your primary care in 10 days. Diagnostic RX Recommendation: PCI w/o planned CABG Pressures Phase:Rest AO : 129 / 50 ( 83 ) @ 10:20:00 AM 109 / 67 ( 87 ) @ 10:22:00 AM 106 / 64 ( 85 ) @ 10:23:00 AM 127 / 44 ( 79 ) @ 10:32:00 AM 132 / 48 ( 83 ) @ 10:34:00 AM 107 / 35 ( 64 ) @ 10:44:00 AM 109 / 43 ( 74 ) @ 10:56:00 AM 150 / 55 ( 98 ) @ 11:05:00 AM 152 / 56 ( 99 ) @ 11:05:00 AM LV : 155 / 9 / 16 @ 11:04:00 AM 131 / 13 / 31 @ 11:05:00 AM Valves Phase:DefaultPhase AV : 0.0 @ 11:17:34 AM AV Mean Gradient: 0.0 @ 11:17:34 AM Clinical Evaluation EBL: 5mL-10mL Procedural Details Procedure Consent Obtained. Admit Source: Out Patient. Current Diagnosis : Chest Pain. Pre-Procedure Time Out. Identified patient by full name and date of as verbalized by the patient/guarantor. Does the consent match the physician's order: Yes. Accurate & Complete Informed Consent: Yes. Inpatient/Outpatient History & Physical on Chart: Yes. If H&P is completed, is and addenduem needed: No; If yes, is the addendum complete: N/A. Visualize and Verify Site with Patient/Guarantor: N/A. Relevant Radiology Images available: N/A. The risks, benefits, and alternatives of sedation and/or procedure were discussed by physician. The patient agrees to continue. Procedure started. [facility] Clinical Fraility Score: 3: Managing Well. 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 Chest Pain Symptom Assessment: Typical Angina Symptoms. Cardiovascular Instability: No. Correct patient, site and procedure confirmed by cath team. Current diagnosis: Chest Pain; Abnormal stress test. PERRLA. Strong, equal hand document scanner bilaterally. Lungs clear x 5 lobes. IV Site on Arrival: 20 gauge in the left forearm. IV Fluids: 0.9% NaCl at KVO. 0 mL infused prior to prosthetic lab technician. Pre Procedural Pulses: bilateral dorsalis pedis was 2+. Pre Procedural Pulses: bilateral posterior tibial was 2+. Pre Procedural Pulses: bilateral radial was 3+. Oxygen started at 3liters/min via nasal canula. right radial was prepped with chloroprep then draped in the usual sterile fashion. right groin was prepped with chloroprep then draped in the usual sterile fashion. Physician notified. Baseline sample Acquired. HR: 74 BPM. Physician arrived. Family updated by MD prior to the start of the procedure. Physician scrubbed in. Immediate Pre-Procedure Time Out. Correct Patient: Yes; Correct Procedure: Yes; Correct Site: Yes; Correct Patient Position: Yes; Correct Supplies: Yes; Dried Flammable Prep: Yes; Blood Products Available: N/A;. Lidocaine 1% infiltrated to the right radial. Arterial access obtained. A 5 libyan TIG catheter in over wire. Multiple views taken of right coronary artery. Catheter redirected to the LCA. Multiple views taken of left coronary artery. Physician review of films. Catheter removed over the wire. 6 libyan JR 4 guide catheter was inserted over the wire. Guide seated in the RCA. O2 Converted to Simple mask 6 LPM by Circulating RN. IFR WIRE INSERTED. NORMALIZED PROXIMAL TO LESION AND ADVANCED ACROSS THE LESION THE MID RCA. IFR SPOT 0.90 IFR PULLBACK 0.95. Wire out. ACT drawn. Results 319 seconds. Therapeutic limits - pre-heparin administration 90-150 seconds and monitoring heparin during a vascular procedure >250 seconds. Viola guidewire was advanced through the guide catheter to lesion in the mid RCA. Guidewire advanced across lesion. Inflation number : 1 A AB TREK 3.00X12 RX BALLOON was prepped and advanced across the Mid RCA , then inflated to 12 KVNG for 0:15 seconds. Results checked. Inflation number: 2 The AB TREK 3.00X12 RX BALLOON was reinflated across the Mid RCA, to 14 KVNG for 0:08 seconds. Inflation number: 3 The AB TREK 3.00X12 RX BALLOON was reinflated across the Mid RCA, to 14 KVNG for 0:10 seconds. Balloon out. Inflation Number : 4 A MDT R GEMA 4.0X15 ATIF -Lot Number# [id number] EXP 12/08/2027 was prepped and advanced across the Mid RCA. The stent was deployed at 12 KVNG for 0:24 seconds. Stent balloon out over wire. Results checked. Inflation number : 5 A MDT NC EUPHORA RX 4.95Y83NP BALLOON was prepped and advanced across the Mid RCA , then inflated to 12 KVNG for 0:15 seconds. Inflation number: 6 The MDT NC EUPHORA RX [id number] BALLOON was reinflated across the Mid RCA, to 14 KVNG for 0:14 seconds. Results checked. Guide removed over the wire. A 5 libyan Angled Pig catheter in over wire. EDP Sample taken: LV 155/9,16; HR: 86 BPM; SpO2: 95%. Pullback taken: LV 131/13,31; AO 150/55(98); Mean: 0mmHg, Peak to Peak: 0mmHg, SEP: 7sec/min; HR: 65 BPM; SpO2: 94%. Catheter removed over the wire. Physcian review of films. Physician scrubbed out. TR band placed. Hemostasis obtained. Post Procedure: Pulses reassessed and unchanged. PERRLA. Strong, equal hand document scanner bilaterally. No VTE prophylaxis required. Medication's Wasted: Lidocaine 1% = 18 ml , Nitro =49.6 mg , Heparin = 3000 units. Total IV fluids: 75 mL. Fluoro: 11:01. Contrast type used: Omnipaque 300 mg/mL, 150 mL bottle. [id number]. Post-op diagnosis: Obstructive CAD; Status post one ATIF. Complications: None. Estimated blood loss: 5mL-10mL. Responsiveness - Normal response to verbal stimuli; alert and oriented, PERRLA. Airway - Unaffected, no intervention required; spontaneous ventilation. Circulation: W/N/L, pulses unchanged. Nausea/Vomiting: No. Procedure completed. Patient transferred by bed to CPRU. Vital chart was stopped. Access Site Site: Right Radial artery Sheath Size: 6 Fr Hemostasis Success: Unsuccessful Procedure Medications Start: 9:59 AM Stop: 9:59 AM Medication: Versed Amount: 1 mg Route: I.V. Start: 9:59 AM Stop: 9:59 AM Medication: Fentanyl Amount: 50 mcg Route: I.V. Start: 10:17 AM Stop: 10:17 AM Medication: Nitrogylcerin Amount: 200 mcg Route: I.A. Start: 10:18 AM Stop: 10:18 AM Medication: Heparin Amount: 5000 units Route: I.V. Start: 10:19 AM Stop: 10:19 AM Medication: Versed Amount: 1 mg Route: I.V. Start: 10:19 AM Stop: 10:19 AM Medication: Fentanyl Amount: 50 mcg Route: I.V. Start: 10:28 AM Stop: 10:28 AM Medication: Heparin Amount: 3000 units Route: I.V. Start: 10:57 AM Stop: 10:57 AM Medication: Nitrogylcerin Amount: 200 mcg Route: I.C. Start: 11:15 AM Stop: 11:15 AM Medication: Plavix Amount: 600 mg Route: P.O. I, the attending physician, have reviewed and verified all procedure medications. Yes, all medications given per verbal order History/Risk Factors Hypertension: Yes Dyslipidemia: Yes Peripheral Arterial Disease (PAD): No Myocardial Infarction (DE): No Obesity: Yes Tobacco Use: Never Prior Interventions Valve Surgery: No Report Signatures Finalized by Cortney Bailey MD on 06/11/2025 11:44 AM
[2025-06-11 09:25] LABS: Hematocrit 36.3 % (36-47); Hemoglobin 11.20 g/dL (11.27-16.99); Mean Corpuscular HGB Conc 30.9 g/dL (30-55); Mean Corpuscular Hemoglobin 24.3 pg (27-33); Mean Corpuscular Volume 78.7 fl (85-98); Nucleated Red Blood Cells % 0 %; Platelet Count 359 10^3/cmm (157-399); Red Blood Count 4.61 10^6/uL (3.85-5.65); White Blood Count 6.81 10^3/uL (3.29-11.43)
[2025-06-11 09:48] LABS: Anion Gap 15.3 (5-19); Blood Urea Nitrogen 9 mg/dL (8-23); Calcium 8.8 mg/dL (8.5-10.5); Carbon Dioxide 24 mmol/L (22-29); Chloride 106 mmol/L (98-107); Creatinine Clr Calc Pharmacy 82.6731; Glucose 122 mg/dL (65-115); Osmolality Calculated 292 mOsm/kg (285-295); Potassium 4.3 mmol/L (3.5-5.1); Sodium 141 mmol/L (136-145)
--- NOTE | 2025-06-11 10:06 | P.HPUD_ITS ---
Surgery/Procedure H&P Update DATE OF PROCEDURE: June 11, 2025 DATE H&P PERFORMED: 05/15/25 PREOP DIAGNOSIS: Abnormal stress test PRIMARY INDICATION FOR PROCEDURE: Chest pain/abnormal stress test PLANNED PROCEDURE: Operation Date: 06/11/25 10:00 Proposed Procedures p Cardiac Catheterization(Left) - Cortney Bailey MD PATIENT REASSESSED PRIOR TO SEDATION, WITH NO CHANGE NOTED: Yes PHYSICAL EXAM: alert, oriented x 3, clear to auscultation bilaterally, regular rate & rhythm and operative site marked AIRWAY EVAL/ANESTHESIA PLAN: ASA II, Risks, benefits & alternatives of sedation and/or procedure discussed and Patient agrees to continue as planned ADDITIONAL INFORMATION: All risk-benefit and alternative for the procedure has been explained to the patient. Patient restand 2% risk of stroke major bleed. Patient und erstands 5% risk of minor bleeding oozing infection hematoma contrast-induced nephropathy urgent or emergent vascular bypass surgery. Patient agrees to it and would like to proceed with it
--- NOTE | 2025-06-11 11:16 | PM.PROC ---
Procedure Note: Date of procedure: 06/11/25 Pre-procedure diagnosis: Abnormal stress test, chest Post-procedure diagnosis: same Procedure: Left heart catheter was performed: Left main: Normal LAD has luminal irregularity LCx has luminal irregularity RCA is large caliber size dominant vessel with mid 60 to 70% hazy stenosis, it is a area where stress test is positive however since it was a moderate stenosis we went ahead and performed IFR which turns out to be 0.90 borderline positive send stress test was positive therefore we proceeded with drug-eluting stent to mid RCA PCI to mid RCA with drug-eluting stent postdilated with noncompliant balloon. Excellent angiographic result MEGHAN-3 flow was noted. No complication noted. Plan: Load patient with 60 mg of Plavix along with 325 mg of aspirin now. Continue 75 mg of Plavix and 81 mg of aspirin daily from tomorrow Continue beta-jose add statin Bedrest as per protocol for radial band IV fluid 100 mL/h for next 1 L. Full note to be dictated Possible discharge tomorrow Coding Level of Care Code Acute Code for Sharron Lr
[2025-06-11] MEDS: FUROsemide 10 mg/mL SDV 4mL 40 MG IVP (12:52)
--- NOTE | 2025-06-11 13:59 | PC.NURSE ---
Transfer: Received patient from lab aid staff at approximately 1330. Patient is awake and alert. Oriented to person, place, time, and situaiton. TR band in place, site is unremarkable. No drainage. No hematoma noted. Vitals: BP: 112/61 Spo2: 92% on 4Lnc RR:20 HR: 75 Temp: 97.5 NUrse educated patient on interventions done during procedure, reportable symptoms, and restrictions associated with puncture site/tr band.
--- NOTE | 2025-06-11 16:56 | PC.NURSE ---
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 At this time, oxygen is still required, patient has had about 900mL of urine, and down to 1lpm nasal cannula. NUrse asked Lynn if he wants to restart fluids, he does not. Nurse discontinued order and discarded saline bag. Dr hdz also had nurse restart home doses and schedule of metoprolol, levothyroxine, and gabapentin.
--- NOTE | 2025-06-11 17:02 | PC.NURSE ---
Ambulation: Patient walked approximately 150 feet around the unit. Heart rate and rythm remained normal. Patient reports no chest pain or difficulty breathing. Ambulation ability comparable to home baseline. Requires oxygen at 1Lpm via nasal cannula. Does not require oxygen at home.
--- NOTE | 2025-06-11 17:37 | PC.NURSE ---
Shift SUmmary: Uneventful shift. 1 stent in electronic lab technician. Heart rythm and rate within normal throughout shift. Has ambulated without complications. Approximately 900mL urine voided. Still on nasal cannula, but oxygen requirements have decreased.
[2025-06-12] VITALS (16 sets, daily range): BP systolic 92–144; BP diastolic 46–67; PULSE 75–94; RESP 11–30; TEMP 36.6–36.8; O2SAT 90–96
[2025-06-12 05:22] LABS: Hematocrit 34.4 % (36-47); Hemoglobin 10.40 g/dL (11.27-16.99); Mean Corpuscular HGB Conc 30.2 g/dL (30-55); Mean Corpuscular Hemoglobin 24.2 pg (27-33); Mean Corpuscular Volume 80.0 fl (85-98); Nucleated Red Blood Cells % 0 %; Platelet Count 320 10^3/cmm (157-399); Red Blood Count 4.30 10^6/uL (3.85-5.65); White Blood Count 7.93 10^3/uL (3.29-11.43)
[2025-06-12 05:41] LABS: Anion Gap 16.8 (5-19); Blood Urea Nitrogen 11 mg/dL (8-23); Calcium 8.6 mg/dL (8.5-10.5); Carbon Dioxide 25 mmol/L (22-29); Chloride 100 mmol/L (98-107); Creatinine Clr Calc Pharmacy 82.6731; Glucose 105 mg/dL (65-115); Osmolality Calculated 286 mOsm/kg (285-295); Potassium 3.8 mmol/L (3.5-5.1); Sodium 138 mmol/L (136-145)
--- NOTE | 2025-06-12 12:55 | PC.NURSE ---
Pt Provided discharge instructions, follow up appts, post cath care and carenotes on new medication. Prescriptions sent to [facility] pharmacy on [address] (formerly [place]) All questions answered, Pt discharged home in POV.
== END 2025-06-12 12:55 | disposition home or self-care (01) ==
LOC: CCL 08:55 → ICU 14:22
PROVIDERS: PCP Family Medicine; Visit Provider Internal Medicine Cardiovascular Disease
DX: I25.118 Atherosclerotic heart disease of native coronary artery with other forms of angina pectoris (principal); I10 Essential (primary) hypertension; E78.5 Hyperlipidemia, unspecified; E66.9 Obesity, unspecified; Z68.36 Body mass index [BMI] 36.0-36.9, adult; E11.9 Type 2 diabetes mellitus without complications; Z86.73 Personal history of transient ischemic attack (TIA), and cerebral infarction without residual deficits; Z79.82 Long term (current) use of aspirin; K21.9 Gastro-esophageal reflux disease without esophagitis; E03.9 Hypothyroidism, unspecified; R00.0 Tachycardia, unspecified; F41.9 Anxiety disorder, unspecified; I35.0 Nonrheumatic aortic (valve) stenosis
CPT/HCPCS: 36415; 80048; 85025; 85347; 93458; 93571; 94640; 99152; 99153; C1725; C1769; C1874; C1887; C1894; C9600; J1644; J2250; J3010; J3490; J7030; J9999; Q0163; Q9967

== ENCOUNTER → 2025-07-09 12:26 | Outpatient (BNVA) | payer MEDICARE, MEDICAID, SELFPAY | PROVIDERS: PCP Family Medicine; Visit Provider Nurse Practitioner Family | DX: I35.0 Nonrheumatic aortic (valve) stenosis (principal); I25.10 Atherosclerotic heart disease of native coronary artery without angina pectoris; I10 Essential (primary) hypertension; E78.5 Hyperlipidemia, unspecified; R07.9 Chest pain, unspecified; F17.200 Nicotine dependence, unspecified, uncomplicated | CPT/HCPCS: 99214 ==

== ENCOUNTER → 2025-07-15 11:07 | Outpatient (BNVA) | payer MEDICARE, MEDICAID, SELFPAY | PROVIDERS: PCP Family Medicine; Visit Provider Family Medicine | DX: I25.10 Atherosclerotic heart disease of native coronary artery without angina pectoris (principal); I10 Essential (primary) hypertension | CPT/HCPCS: 80048; 85025 ==

== ENCOUNTER 2025-07-28 12:16 | Outpatient (CLI) | payer MEDICARE, MEDICAID, SELFPAY ==
--- NOTE | 2025-07-28 12:45 | USCV_ITS ---
Sandra Ramírez Age: 69 Gender: F : 1955 Exam Date: 07/28/2025 12:46 Ordering Phys: Adali Melton Technologist: [place] [facility] [place]: as BP: 110 / 60 HR: 72 Rhythm: Sinus Technical Quality: Adequate MEASUREMENTS (Male / Female) Normal Values 2D ECHO LV Diastolic Diameter PLAX 4.2 cm 4.2 - 5.9 / 3.9 - 5.3 cm IVS Diastolic Thickness 1.3 cm 0.6 - 1.0 / 0.6 - 0.9 cm IVS Systolic Thickness 2.1 cm LVPW Diastolic Thickness 1.5 cm 0.6 - 1.0 / 0.6 - 0.9 cm LVPW Systolic Thickness 1.5 cm LVOT Diameter 2.0 cm LV Ejection Fraction 2D Teich 70.7 % LV Ejection Fraction MOD 4C 74.8 % LV Ejection Fraction MOD 2C 52.8 % LV Ejection Fraction 2C AL 52.6 % LA Diameter 3.7 cm RA Systolic Volume 4C AL 25.5 ml RA Systolic Volume 4C MOD 25.0 ml Aorta at Sinotubular Diameter 2.6 cm IVC Diameter 1.9 cm M-MODE LA Ao Ratio MM 1.4 AV Cusp Separation MM 1.2 cm DOPPLER AV Peak Velocity 287.7 cm/s LVOT Peak Velocity 97.0 cm/s AV Area Cont Eq vti 1.1 cm squared AV Area Cont Eq pk 1.1 cm squared MV Area PHT 3.1 cm squared Mitral E to A Ratio 1.1 TV Peak Velocity 223.5 cm/s TR Peak Velocity 232.0 cm/s TR Peak Gradient 21.5 mmHg TV Peak E Velocity 77.0 cm/s PV Peak Velocity 101.0 cm/s FINDINGS Left Ventricle Normal left ventricular size, systolic function and wall thickness, with no regional wall motion abnormalities. Left ventricular ejection fraction is estimated at 60 %. Grade I/IV diastolic dysfunction (abnormal relaxation filling pattern), normal to mildly elevated filling pressures. Right Ventricle Normal right ventricular size and systolic function. Right Atrium Normal right atrial size. Left Atrium Normal left atrial size. IA Septum Normal appearance of the interatrial septum. Mitral Valve Normal mitral valve structure. No mitral valve stenosis or regurgitation. Aortic Valve Moderate aortic valve calcification. Moderate aortic valve stenosis, mean gradient 13.4 mmHg, JARAD 1.1 cm squared. Mild aortic valve regurgitation. Tricuspid Valve Normal tricuspid valve structure. No tricuspid valve stenosis or regurgitation. Normal pulmonary pressure. Pulmonic Valve Trace pulmonary valve regurgitation. Pericardium No pericardial effusion. Aorta Normal diameter of the aortic root and ascending thoracic aorta. IVC Normal IVC diameter. CONCLUSIONS Normal left ventricular size, systolic function and wall thickness, with no regional wall motion abnormalities. Left ventricular ejection fraction is estimated at 60 %. Grade I/IV diastolic dysfunction (abnormal relaxation filling pattern), normal to mildly elevated filling pressures. Moderate aortic valve calcification. Moderate aortic valve stenosis, mean gradient 13.4 mmHg, JARAD 1.1 cm squared. Mild aortic valve regurgitation. There is no pericardial effusion. Right atrial pressure is around 5 mm of mercury. Cortney Bailey MD (Electronically Signed) Final Date: 04 August 2025 00:33 S
== END 2025-07-28 12:17 | disposition home or self-care (01) ==
LOC: RAD 12:18
PROVIDERS: PCP Family Medicine; Visit Provider Nurse Practitioner Family
DX: I35.0 Nonrheumatic aortic (valve) stenosis (principal); I51.89 Other ill-defined heart diseases; I35.1 Nonrheumatic aortic (valve) insufficiency
CPT/HCPCS: 93306